=== PATIENT | male | born 1935 | race Caucasian/White ===

== ENCOUNTER 2016-10-13 13:02 | Inpatient (IN) | payer MEDICARE, BC ==
[2016-10-13 13:22] LABS: Glucose,Whole Blood 83 mg/dL (75-99)
[2016-10-13] MEDS ORDERED: SODIUM CHLORIDE 0.9% 500 ML IV STA (13:29)
[2016-10-13] MEDS ORDERED: SODIUM CHLORIDE 0.9% 1,000 ML IV STA (13:29)
--- NOTE | 2016-10-13 13:32 | ED ---
General Adult HPI - General Chief complaint: Neuro Symptoms/Deficit Stated complaint: double vision/nausea-sent by Time Seen by Provider: 10/13/16 13:19 Source: patient Mode of arrival: wheelchair Limitations: no limitations - History of Present Illness Initial comments: This 81-year-old white male presents with a complaint of some double vision as well as some blurry vision which started this morning upon waking at 7 AM. He states that it was more significant and initially and has minimally improved at this time. He denies any other neurologic symptoms such as paresthesias or weakness her if okay with ambulation. He denies any chest pain or shortness of breath. He denies any known previous ophthalmologic problems other than having cataract surgery years ago. He denies any previous CVA or TIAs. He apparently went to physical therapy for his shoulder and they sent him to his primary doctor's office. His primary care physician sent him to the ER for further evaluation. He denies any previous similar incidents. No other complaints or modifying factors. - Related Data Home Medications Medication Instructions Recorded Confirmed Meloxicam [Mobic] 15 mg PO DAILY PRN 10/13/16 10/13/16 Mirtazapine [Remeron] 15 mg PO HS 10/13/16 10/13/16 amLODIPine [Norvasc] 10 mg PO DAILY 10/13/16 10/13/16 cloNIDine HCL [Catapres] 0.1 mg PO DAILY 10/13/16 10/13/16 Allergies Allergy/AdvReac Type Severity Reaction Status Date / Time No Known Allergies Allergy Verified 10/13/16 14:20 Review of Systems ROS Statement: Those systems with pertinent positive or pertinent negative responses have been documented in the HPI. ROS Other: All systems not noted in ROS Statement are negative. Past Medical History Past Medical History: Cancer, Hypertension Additional Past Medical History / Comment(s): kidney ca History of Any Multi-Drug Resistant Organisms: None Reported Past Surgical History: Joint Replacement, Orthopedic Surgery Additional Past Surgical History / Comment(s): rotator cuff knee replacement kidney bladder stimulator sinus surg Past Psychological History: No Psychological Hx Reported Smoking Status: Former smoker Past Alcohol Use History: Rare Past Drug Use History: None Reported General Exam - General Exam Comments Initial Comments: GENERAL: The patient is well nourished and well hydrated. VITAL SIGNS: Heart rate, blood pressure, respiratory rate reviewed as recorded in nurse's notes. EYES: Pupils are round and reactive. Extraocular movements are intact. No conjunctival / lid redness or swelling. Previous cataract surgery evident. ENT: No external evidence of injury, swelling, or ecchymosis. Airway is patent. Throat is clear. NECK: Nontender. No swelling or evidence of injury. No subcutaneous emphysema. Trachea is midline. No thyroid mass. HEART: Regular rate and rhythm. Good peripheral pulses. LUNGS/CHEST: Breath sounds clear and equal bilaterally. No rales, rhonchi, or wheezes. No ecchymosis, subcutaneous emphysema, or tenderness. ABDOMEN: Abdomen soft without tenderness. No palpable masses or organomegaly. No peritoneal signs. No abdominal wall swelling or ecchymosis. EXTREMITIES: No extremity tenderness. Normal muscle tone and function. No thoracolumbar tenderness. NEUROLOGIC: Sensation is grossly intact. Cranial nerve exam reveals face is symmetrical, tongue is midline, speech is clear. Strength is intact bilaterally upper and lower extremities. SKIN: No abrasions or ecchymosis is noted. No induration or masses noted. Scars noted over right shoulder. PSYCHIATRIC: Alert and oriented. Appropriate behavior and judgment. Limitations: no limitations Course Vital Signs 10/13/16 10/13/16 10/13/16 13:05 13:15 13:30 Temperature 97.2 F L Pulse Rate 73 69 68 Respiratory 18 18 20 Rate Blood Pressure 136/70 161/91 147/88 O2 Sat by Pulse 96 90 L 99 Oximetry 10/13/16 10/13/16 13:45 14:00 Temperature Pulse Rate 72 69 Respiratory 18 20 Rate Blood Pressure 138/80 141/78 O2 Sat by Pulse 99 99 Oximetry Medical Decision Making - Medical Decision Making The patient was seen and examined. All diagnostics were reviewed. The EKG shows a normal sinus rhythm at a rate of 66. There is a first-degree AV block noted. There is no acute ST-T wave changes identified. There is some additional spikes noted likely due to his bladder stimulator. The VT interval is 336, QRS duration is 96, and QTC intervals 413. Computed tomography scan of brain does not show any acute abnormalities. The his laboratory is all fairly unremarkable. He is still having the diplopia on recheck. The possibility of a central neurologic event is highly suspicious. Is felt as though he benefit from further workup and specialty consultation. Case is discussed with Dr. Miller and he is agreeable with admission and would like an MRI of the brain with contrast and to have neurology consult. Patient is agreeable as well. - Lab Data Result diagrams: 10/13/16 13:30 10/13/16 13:30 Lab Results 10/13/16 10/13/16 10/13/16 Range/Units 13:19 13:30 13:30 WBC 6.5 (3.8-10.6) k/uL RBC 4.22 L (4.30-5.90) m/uL Hgb 12.9 L (13.0-17.5) gm/dL Hct 40.8 (39.0-53.0) % MCV 96.8 (80.0-100.0) fL MCH 30.5 (25.0-35.0) pg MCHC 31.5 (31.0-37.0) g/dL RDW 14.1 (11.5-15.5) % Plt Count 257 (150-450) k/uL Neutrophils % 66 % Lymphocytes % 20 % Monocytes % 8 % Eosinophils % 3 % Basophils % 1 % Neutrophils # 4.3 (1.3-7.7) k/uL Lymphocytes # 1.3 (1.0-4.8) k/uL Monocytes # 0.5 (0-1.0) k/uL Eosinophils # 0.2 (0-0.7) k/uL Basophils # 0.0 (0-0.2) k/uL PT (9.0-12.0) sec INR (<1.1) APTT (22.0-30.0) sec Sodium (137-145) mmol/L Potassium (3.5-5.1) mmol/L Chloride (98-107) mmol/L Carbon Dioxide (22-30) mmol/L Anion Gap mmol/L BUN (9-20) mg/dL Creatinine (0.66-1.25) mg/dL Est GFR (MDRD) Af Amer (>60 ml/min/1.73 sqM) Est GFR (MDRD) Non-Af (>60 ml/min/1.73 sqM) Glucose (74-99) mg/dL POC Glucose (mg/dL) 83 (75-99) mg/dL POC Glu Game [employer] ID McDaid, Brandie Calcium (8.4-10.2) mg/dL Total Bilirubin (0.2-1.3) mg/dL AST (17-59) U/L ALT (21-72) U/L Alkaline Phosphatase (38-126) U/L Total Creatine Kinase 40 L (55-170) U/L CK-MB (CK-2) 2.0 (0.0-2.4) ng/mL CK-MB (CK-2) Rel Index 5.0 Troponin I 0.021 (0.000-0.034) ng/mL Total Protein (6.3-8.2) g/dL Albumin (3.5-5.0) g/dL 10/13/16 10/13/16 Range/Units 13:30 13:30 WBC (3.8-10.6) k/uL RBC (4.30-5.90) m/uL Hgb (13.0-17.5) gm/dL Hct (39.0-53.0) % MCV (80.0-100.0) fL MCH (25.0-35.0) pg MCHC (31.0-37.0) g/dL RDW (11.5-15.5) % Plt Count (150-450) k/uL Neutrophils % % Lymphocytes % % Monocytes % % Eosinophils % % Basophils % % Neutrophils # (1.3-7.7) k/uL Lymphocytes # (1.0-4.8) k/uL Monocytes # (0-1.0) k/uL Eosinophils # (0-0.7) k/uL Basophils # (0-0.2) k/uL PT 10.2 (9.0-12.0) sec INR 1.0 (<1.1) APTT 24.4 (22.0-30.0) sec Sodium 139 (137-145) mmol/L Potassium 4.3 (3.5-5.1) mmol/L Chloride 103 (98-107) mmol/L Carbon Dioxide 27 (22-30) mmol/L Anion Gap 9 mmol/L BUN 15 (9-20) mg/dL Creatinine 0.80 (0.66-1.25) mg/dL Est GFR (MDRD) Af Amer >60 (>60 ml/min/1.73 sqM) Est GFR (MDRD) Non-Af >60 (>60 ml/min/1.73 sqM) Glucose 90 (74-99) mg/dL POC Glucose (mg/dL) (75-99) mg/dL POC Glu Game [employer] ID Calcium 9.2 (8.4-10.2) mg/dL Total Bilirubin 0.3 (0.2-1.3) mg/dL AST 20 (17-59) U/L ALT 41 (21-72) U/L Alkaline Phosphatase 93 (38-126) U/L Total Creatine Kinase (55-170) U/L CK-MB (CK-2) (0.0-2.4) ng/mL CK-MB (CK-2) Rel Index Troponin I (0.000-0.034) ng/mL Total Protein 6.4 (6.3-8.2) g/dL Albumin 3.7 (3.5-5.0) g/dL Disposition Clinical Impression: Diplopia, Blurry vision Disposition: ADMITTED IP TO THIS [facility] Condition: Fair Time of Disposition: 14:52 Decision Date: 10/13/16 Decision Time: 14:52
[2016-10-13 13:45] LABS: Basophils % (A) 1 %; CH 31.6; CHCM 32.8; Eosinophils # (A) 0.2 k/uL (0-0.7); Eosinophils % (A) 3 %; HCT 40.8 % (39.0-53.0); HGB 12.9 gm/dL (13.0-17.5); Luc # (Auto) 0.14; Luc % (Auto) 2; Lymphocytes # (A) 1.3 k/uL (1.0-4.8); Lymphocytes % (A) 20 %; MCH 30.5 pg (25.0-35.0); MCHC 31.5 g/dL (31.0-37.0); MCV 96.8 fL (80.0-100.0); Mean Platelet Volume 7.3; Monocytes # (A) 0.5 k/uL (0-1.0); Monocytes % (A) 8 %; Neutrophils # (A) 4.3 k/uL (1.3-7.7); Neutrophils % (A) 66 %; RBC 4.22 m/uL (4.30-5.90); RDW 14.1 % (11.5-15.5); WBC 6.5 k/uL (3.8-10.6); WBC (Perox) 6.44
[2016-10-13 13:52] LABS: ALT 41 U/L (21-72); AST 20 U/L (17-59); Alkaline Phosphatase 93 U/L (38-126); Anion Gap 9 mmol/L; Blood Urea Nitrogen 15 mg/dL (9-20); Calcium 9.2 mg/dL (8.4-10.2); Carbon Dioxide 27 mmol/L (22-30); Chloride 103 mmol/L (98-107); Glucose 90 mg/dL (74-99); Non-African American GFR(MDRD) >60 (>60 ml/min/1.73 sqM); Potassium 4.3 mmol/L (3.5-5.1); Sodium 139 mmol/L (137-145); Total Bilirubin 0.3 mg/dL (0.2-1.3); Total Protein 6.4 g/dL (6.3-8.2)
[2016-10-13 13:53] LABS: Partial Thromboplastin Time 24.4 sec (22.0-30.0); Prothrombin Time 10.2 sec (9.0-12.0)
--- NOTE | 2016-10-13 14:00 | CT ---
EXAMINATION TYPE: CT brain wo con DATE OF EXAM: 10/13/2016 COMPARISON: NONE HISTORY: Diplopia. CT DLP: 1091 mGycm Automated exposure control for dose reduction was used. FINDINGS: There is no acute hemorrhage or major vessel territorial infarct. There is mild cortical atrophy. The re is no mass, mass effect, or midline shift. Ventricles are not dilated. The sulci are mildly promin ent which is felt to be due to atrophy. The paranasal sinuses and mastoid air cells are well aerated. The calvarium is unremarkable. There is erosion of the osseous structures of the ethmoid sinus likel y from history of prior sinusitis. There is also opacification of the left frontal sinus. Soft tissue structures appear unremarkable. IMPRESSION: 1. No acute intracranial abnormality identified. 2. Sequelae of prior sinus disease is noted. There is also opacification of the left frontal sinus.
[2016-10-13 14:23] LABS: Troponin I 0.021 ng/mL (0.000-0.034)
[2016-10-13] MEDS ORDERED: MELOXICAM 7.5 MG TAB PO PRN (14:56)
[2016-10-13 15:18] VITALS: RESP 18
[2016-10-13 17:43] VITALS: BMI 20.9
--- NOTE | 2016-10-13 19:07 | P.CNNES ---
History of Present Illness Consult date: 10/13/16 History of Present Illness: The patient 81-year-old right-handed white male who woke up with double vision. He has never had episode like this in the past. He states that when he closes either eye the double vision disappears. He continues to have double vision. He denies any other neurologic complaints such as focal weakness numbness visual loss dizziness vertigo or headache. He saw his primary care physician today who sent him to the emergency room. He had a CT of the brain in the emergency room which did not reveal any acute abnormality. Review of Systems Constitutional: Denies chills, Denies fever Eyes: denies blurred vision, denies pain Ears, nose, mouth and throat: Denies headache, Denies sore throat Cardiovascular: Denies chest pain, Denies shortness of breath Gastrointestinal: Denies abdominal pain, Denies diarrhea, Denies nausea, Denies vomiting Musculoskeletal: Denies myalgias Integumentary: Denies pruritus, Denies rash Neurological: Denies numbness, Denies weakness Past Medical History Past Medical History: Cancer, Hypertension Additional Past Medical History / Comment(s): kidney ca History of Any Multi-Drug Resistant Organisms: None Reported Past Surgical History: Joint Replacement, Orthopedic Surgery Additional Past Surgical History / Comment(s): rotator cuff knee replacement kidney bladder stimulator sinus surg Past Psychological History: No Psychological Hx Reported Smoking Status: Former smoker Medications and Allergies Home Medications Medication Instructions Recorded Confirmed Type Meloxicam [Mobic] 15 mg PO DAILY PRN 10/13/16 10/13/16 History Mirtazapine [Remeron] 15 mg PO HS 10/13/16 10/13/16 History amLODIPine [Norvasc] 10 mg PO DAILY 10/13/16 10/13/16 History cloNIDine HCL [Catapres] 0.1 mg PO DAILY 10/13/16 10/13/16 History Allergies Allergy/AdvReac Type Severity Reaction Status Date / Time No Known Allergies Allergy Verified 10/13/16 14:20 Physical Examination - Vital Signs Vital Signs: Vital Signs Temp Pulse Resp BP Pulse Ox 10/13/16 15:17 97.5 F L 87 18 143/84 10/13/16 15:00 71 20 139/59 99 10/13/16 14:30 74 20 138/59 99 10/13/16 14:00 69 20 141/78 99 10/13/16 13:45 72 18 138/80 99 10/13/16 13:30 68 20 147/88 99 10/13/16 13:15 69 18 161/91 90 L 10/13/16 13:05 97.2 F L 73 18 136/70 96 Intake and Output 10/13/16 10/13/16 10/13/16 06:59 14:59 22:59 Other: Voiding Method Urinal # Voids 1 Weight 62.596 kg 62.596 kg Patient Weight 10/14/16 06:59 Weight 62.596 kg - Constitutional General appearance: cooperative - EENT EENT: PERRL, vision intact, hearing diminished - Respiratory Respiratory: lungs clear - Cardiovascular Cardiovascular: regular rate - Integumentary Integumentary: normal - Neurologic Cranial nerve examination: PERRL, EOMI, VFF, V1/V2/V3 grossly intact, face symmetric, tongue midline Speech examination: intact Sensorimotor examination: intact Detailed motor examination: grossly full strength in all extremities - Psychiatric Psychiatric: mood/affect appropriate Results - Laboratory Findings CBC and BMP: 10/13/16 13:30 10/13/16 13:30 Abnormal Lab Findings: Abnormal Labs 10/13/16 10/13/16 13:30 13:30 RBC 4.22 L Hgb 12.9 L Total Creatine Kinase 40 L Assessment and Plan (1) Diplopia Status: Acute Code(s): H53.2 - DIPLOPIA (2) Stroke Status: Acute Code(s): I63.9 - CEREBRAL INFARCTION, UNSPECIFIED Plan: Patient is an 81-year-old man who presents to the hospital with sudden onset diplopia. His CT of the brain which did not show any acute abnormality. His neuro exam is unremarkable except for double vision worse when looking to the left. He may have some slight weakness in the left sixth nerve. She is being evaluated for possible stroke. He will have a carotid ultrasound and echocardiogram. He will also have an MRI of the brain for further evaluation. Stroke risk factors include hypertension and past history of smoking.
--- NOTE | 2016-10-13 19:13 | US ---
EXAMINATION TYPE: US carotid duplex BILAT DATE OF EXAM: 10/13/2016 COMPARISON: NONE CLINICAL HISTORY: Stenosis. Double vision EXAM MEASUREMENTS: RIGHT: Peak Systolic Velocity (PSV) cm/sec ----- Right CCA: 62.4 ----- Right ICA: 52.0 ----- Right ECA: 95.3 ICA/CCA ratio: 0.8 RIGHT: End Diastole cm/sec ----- Right CCA: 15.9 ----- Right ICA: 13.7 ----- Right ECA: 10.6 LEFT: Peak Systolic Velocity (PSV) cm/sec ----- Left CCA: 61.9 ----- Left ICA: 61.1 ----- Left ECA: 100.1 ICA/CCA ratio: 1.0 LEFT: End Diastole cm/sec ----- Left CCA: 14.0 ----- Left ICA: 16.4 ----- Left ECA: 12.9 VERTEBRALS (direction of flow): Right Vertebral: Antegrade Left Vertebral: Antegrade No elevated velocities, no significant stenosis IMPRESSION: There is antegrade flow in the vertebral arteries. The images and measurements suggest c lose to 0% stenosis in both internal carotid arteries. Criteria for Assigning % of Stenosis / Diameter reduction (Estimation based on the indirect measurements of the internal carotid artery velocities (ICA PSV). 1. Normal (no stenosis)=ICA PSV < 125 cm/s: ratio < 2.0: ICA EDV<40 cm/s. 2. Less than 50% stenosis=ICA PSV < 125 cm/s: ratio < 2.0: ICA EDV<40 cm/s. 3. 50 to 69% stenosis=ICA PSV of 125 to 230 cm/s: ration 2.0 ? 4.0: ICA EDV 40-100 cm/s. 4. Greater than 70% stenosis to near occlusion= ICA PSV > 230 cm/s: ratio > 4.0: ICA EDV > 100 cm/s. 5. Near occlusion= ICA PSV velocities may be low or undetectable: variable ratio and ICA EDV. 6. Total occlusion=unable to detect flow.
[2016-10-13] MEDS: MIRTAZAPINE 15 MG TAB PO SCH (20:39)
[2016-10-13] MEDS ORDERED: FAMOTIDINE 20 MG/2 ML VIAL IV SCH (21:00)
[2016-10-14 06:10] LABS: Cholesterol 171 mg/dL (<200); HDL Cholesterol 58 mg/dL (40-60); Triglycerides 93 mg/dL (<150)
[2016-10-14] MEDS ORDERED: ATORVASTATIN 40 MG TAB PO SCH (09:00)
[2016-10-14] MEDS ORDERED: cloNIDine HCL 0.1 MG TAB PO SCH (09:00)
[2016-10-14] MEDS ORDERED: ENOXAPARIN 40 MG/0.4 ML SYRINGE SQ SCH (09:00)
[2016-10-14] MEDS ORDERED: ASPIRIN 325 MG TAB PO SCH (09:00)
[2016-10-14] MEDS ORDERED: amLODIPine 10 MG TAB PO SCH (09:00)
--- NOTE | 2016-10-14 09:22 | HP ---
DATE OF ADMISSION: 10/13/2016 CHIEF COMPLAINT: Double vision and nausea. HISTORY OF PRESENT ILLNESS: This 81-year-old gentleman who had a past medical history of multiple medical problems, including history of hypertension, history of kidney cancer, history of degenerative joint disease, history of nicotine dependence being followed by Dr. Arnoldo Coronel in the outpatient was complaining of double vision, as well as some nausea since the patient woke up from 7:00. The double vision is looking every direction according to him and the patient also had some unsteadiness walking. The patient went to Dr. Coronel's office and directed to [facility] for further evaluation and treatment . There is no history of fever, rigors or chills. No history of headache, loss of consciousness or seizures. PAST MEDICAL HISTORY: History of hypertension. History of kidney cancer, history of degenerative joint disease and joint replacement. Medications prior to admission include: 1. Remeron 50 mg q.h.s. 2. Mobic 15 mg daily p.r.n. 3. Catapres 0.1 daily. 4. Norvasc 10 mg daily. ALLERGIES: None. FAMILY HISTORY: No history of heart disease or strokes in the family. SOCIAL HISTORY: Remote history of smoking. No history of alcohol intake. REVIEW OF SYSTEMS: HEENT: Diminished vision. Diminished hearing. CARDIOVASCULAR: No angina or palpitations. RESPIRATORY: No cough or hemoptysis. GI: No nausea. : No dysuria. Nervous system: As mentioned earlier. ALLERGY/IMMUNOLOGY: No asthma or hayfever. MUSCULOSKELETAL: As mentioned earlier. HEMATOLOGY/ONCOLOGY: No history of anemia. ENDOCRINE: No history of diabetes mellitus or hypothyroidism. CONSTITUTIONAL: As mentioned earlier. DERMATOLOGY: Negative. RHEUMATOLOGY: Negative. PSYCHIATRY: Negative. PHYSICAL EXAMINATION: The patient is alert and oriented times three. Pulse 88, blood pressure 109/63, respiratory rate 18, temperature 98.1. Pulse ox 94% on room air. HEENT: Conjunctivae normal. Oral mucosa moist. NECK: No jugular venous distention. No carotid bruit. No lymph node enlargement. CARDIOVASCULAR: S1, S2. No S3, no S4. RESPIRATORY: Breath sounds diminished at the bases. Scattered rhonchi and crackles. ABDOMEN: Soft, nontender. No mass palpable. Legs: No edema. No swelling. Nervous system: Higher functions function as mentioned earlier. Cranial nerves no nystagmus. No diplopia currently. Otherwise moves all 4 limbs, minimal weakness on the right upper limb present and also patient also had finger to nose incontinent right more than left. Gait dysfunction also present. LYMPHATICS: No lymph nodes palpable in the neck, axillae or groin. Joints: No active deforming arthropathy. LABS: WBC 6.9, hemoglobin is 12.9. ASSESSMENT: 1. Diplopia and dizziness for evaluation, possibly with acute vertebral basilar stroke. 2. Anemia, normocytic anemia of chronic disease. 3. Hypertension. 4. History of kidney cancer. 5. History of degenerative joint disease. 7. Remote history of nicotine dependence. 8. NO CODE, NO CPR, NO VENT. RECOMMENDATIONS AND DISCUSSION: In this 81-year-old gentleman who presented with the multiple complex medical issues, we will monitor the patient closely, continue the current medications, continue with symptomatic treatment and antiplatelet agents. Otherwise, DVT prophylaxis. Neurology consultation. Neurovascular work-up. Brain CT has been done, which showed sinus disease. I would also recommend MRI and MRA of the brain and continue to monitor. Prognosis guarded. Further recommendations to follow. Discussed with the patient, understands and agrees. Further recommendations to follow. MTDD
--- NOTE | 2016-10-14 15:34 | PN ---
DATE OF SERVICE: 10/14/2016 This 81-year-old gentleman admitted with diplopia as well as brainstem stroke is being closely monitored. MRI could not be done because of the necessity for 1.5 Kelsi machine. The patient has some still some incontinence, difficulty walking and difficulty in speech also. The patient is being closely monitored. Neurology following the patient closely. PAST MEDICAL HISTORY: Reviewed. REVIEW OF SYSTEMS: CARDIOVASCULAR: No angina or palpitations. GASTROINTESTINAL: No nausea or vomiting. : No dysuria. CENTRAL NERVOUS SYSTEM: As mentioned earlier. PHYSICAL EXAMINATION: Patient is alert and oriented times three. Pulse 72, blood pressure 136/77, respiration 18, temperature 97.4. Pulse ox 94% on room air. HEENT: Conjunctivae normal. Oral mucosa moist. CARDIOVASCULAR: S1, S2. RESPIRATORY: Breath sound diminished in the bases. No rhonchi. No crackles. ABDOMEN: Soft, nontender. LEGS: No edema. Nervous system: Minimal nystagmus present. EXTREMITIES : Bilateral right more than left. Minimal weakness on the right side also present. SKIN: No ulcer, rash or bleeding. LYMPHATICS: No lymph nodes palpable in the neck, axillae or groin. LABORATORY DATA: Lipids are normal. Hemoglobin 12. ASSESSMENT: 1. 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 2. Cerebral thrombosis. 3. Anemia, normocytic anemia of chronic disease. 4. Gait dysfunction. 5. Hypertension. 6. History of dysarthria. 7. History of kidney cancer. 8. History of finger-nose incoordination. 9. History of degenerative joint disease. 10. Remote history of nicotine dependence. 11. NO CODE, NO CPR, NO VENT. RECOMMENDATIONS AND DISCUSSION: Recommend to continue current medications, continue with symptomatic treatment. Continue antiplatelet agents and Lipitor and continue DVT prophylaxis. Symptomatic treatment. Further recommendations to follow. Prognosis guarded. MTDD
[2016-10-14] MEDS: MIRTAZAPINE 15 MG TAB PO SCH (20:23)
[2016-10-15] MEDS ORDERED: ATORVASTATIN 40 MG TAB ONE (09:00)
[2016-10-15] MEDS ORDERED: ASPIRIN 325 MG TAB ONE (09:00)
[2016-10-15] MEDS ORDERED: cloNIDine HCL 0.1 MG TAB ONE (09:00)
[2016-10-15] MEDS ORDERED: amLODIPine 10 MG TAB ONE (09:00)
[2016-10-15] MEDS ORDERED: ENOXAPARIN 40 MG/0.4 ML SYRINGE SQ ONE (09:00)
[2016-10-15 12:26] VITALS: BP 128/82; PULSE 75; TEMP 97.1
--- NOTE | 2016-10-15 12:39 | ECHOF ---
Referral Reason:Thrombus MEASUREMENTS -------- HEIGHT: 172.7 cm WEIGHT: 62.6 kg BP: 141/78 IVSd: 1.1 cm (0.6 - 1.1) LVIDd: 5.3 cm (3.9 - 5.3) LVIDs: 4.0 cm LA Diam: 3.3 cm (2.7 - 3.8) RVIDd: 2.7 cm (< 3.3) LAESV Index (A-L): 33.94 ml/m Ao Diam: 2.7 cm (2.0 - 3.7) LA Diam: 3.6 cm (2.7 - 3.8) AV Cusp: 2.0 cm (1.5 - 2.6) EPSS: 0.9 cm MV E Jeramie: 0.55 m/s MV DecT: 240 ms MV A Jeramie: 0.83 m/s MV E/A Ratio: 0.67 RAP: 5.00 mmHg RVSP: 15.27 mmHg MV EF SLOPE: 113.92 mm/s (70 - 150) MV EXCURSION: 15.62 mm (> 18.000) FINDINGS -------- Sinus rhythm. This was a technically adequate study. There is mild concentric left ventricular hypertrophy. Overall left ventricular systolic function is mildly impaired with, an EF between 45 - 50 %. The right ventricle is normal in size. LA is midly dilated 29-33ml/m2. The right atrial size is normal. There is mild aortic valve sclerosis. There is no evidence of aortic regurgitation. Mild mitral annular calcification present. Mild mitral regurgitation is present. Mild tricuspid regurgitation present. There is no evidence of pulmonary hypertension. The right ventricular systolic pressure, as measured by Doppler, is 15.27mmHg. TV thickening. Trace/mild (physiologic) pulmonic regurgitation. The aortic root size is normal. There is no pericardial effusion. CONCLUSIONS -------- 1. There is mild concentric left ventricular hypertrophy. 2. TV thickening. 3. Trace/mild (physiologic) pulmonic regurgitation. 4. The aortic root size is normal. 5. There is no pericardial effusion. 6. Overall left ventricular systolic function is mildly impaired with, an EF between 45 - 50 %. 7. LA is midly dilated 29-33ml/m2. 8. There is mild aortic valve sclerosis. 9. Mild mitral annular calcification present. 10. Mild mitral regurgitation is present. 11. Mild tricuspid regurgitation present. 12. There is no evidence of pulmonary hypertension. 13. The right ventricular systolic pressure, as measured by Doppler, is 15.27mmHg. PAY[employer] BENEFITS SPECIALIST: Josefina Madden RDCS
--- NOTE | 2016-10-15 16:20 | DS ---
DATE OF ADMISSION: 10/13/2016 DATE OF DISCHARGE: FINAL DIAGNOSES: 1. 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 2. cerebral thrombosis. 3. Anemia, normocytic anemia of chronic disease. 4. Gait dysfunction, improved. 5. Hypertension. 6. History of dysarthria. 7. History of kidney cancer. 8. History of degenerative joint disease. 9. Remote history of nicotine depression. 10. NO CODE, NO CPR, NO VENT. DISCHARGE DISPOSITION: The patient will be discharged in a stable condition with guarded prognosis. Discharge cleared by Neurology. HISTORY OF PRESENT ILLNESS: This 81-year-old gentleman with a past medical history of multiple medical problems including diplopia and features of acute vertebrobasilar stroke. The patient was treated symptomatically. The patient was seen by Neurology. The basic neurovascular work-up was unremarkable, but however, MRI scan was recommended and could not be done because of the patient's pain pump apparently. The outside MRI with lower magnetic power has been recommended. Carotid Doppler unremarkable. On exam, vitals are stable. CARDIOVASCULAR SYSTEM: S1, S2. ABDOMEN: Soft. NERVOUS SYSTEM: No focal deficits. LABS: Noted. DISCHARGE ADVICE: 1. Diet is cardiac. 2. Activity limited until follow up. 3. Follow up with Dr. Coronel in 2 to 3 days. 4. Follow with Dr. Sabrina Russo, neurology, in one week and continued outpatient MRI. MEDICATIONS: 1. Norvasc 10 mg daily. 2. Ecotrin 81 mg daily. 3. Lipitor 40 mg p.o. daily. 4. Catapres 0.1 p.o. daily. 5. Pepcid 20 mg daily. 6. Mobic 15 mg daily p.r.n. 7. Amaryl 50 mg q.h.s. MTDD
== END 2016-10-15 16:20 | disposition home or self-care (01) | DRG 66 ==
LOC: EC 13:02 → 6SEL 14:53
PROVIDERS: ADMIT Hospitalist; ATTEND Hospitalist
DX: I63.30 Cerebral infarction due to thrombosis of unspecified cerebral artery (principal); D63.8 Anemia in other chronic diseases classified elsewhere; I10 Essential (primary) hypertension; H53.2 Diplopia; R29.700 NIHSS score 0; R47.1 Dysarthria and anarthria; R26.2 Difficulty in walking, not elsewhere classified; R27.9 Unspecified lack of coordination; R32 Unspecified urinary incontinence; M19.91 Primary osteoarthritis, unspecified site; Z66 Do not resuscitate; Z87.891 Personal history of nicotine dependence; Z85.528 Personal history of other malignant neoplasm of kidney; Z96.659 Presence of unspecified artificial knee joint; Z79.1 Long term (current) use of non-steroidal anti-inflammatories (NSAID); Z79.899 Other long term (current) drug therapy; Z86.73 Personal history of transient ischemic attack (TIA), and cerebral infarction without residual deficits; Z86.59 Personal history of other mental and behavioral disorders
CPT/HCPCS: 36415; 70450; 80053; 80061; 82550; 82553; 84484; 85025; 85610; 85730; 93005; 93306; 93880; 96360; 99285

== ENCOUNTER → 2017-11-22 | Outpatient (CLI) | payer MEDICARE, BC ==
--- NOTE | 2017-11-22 20:25 | CT ---
EXAMINATION TYPE: CT abdomen wo con DATE OF EXAM: 11/22/2017 HISTORY: UPPER ABDOMINAL PAIN CT DLP: 286 mGycm. Automated Exposure Control for Dose Reduction was Utilized. TECHNIQUE: CT scan of the abdomen is performed without oral or IV contrast. COMPARISON: NONE FINDINGS: Within the limitations of a non-contrast study, the following observations are made. LUNG BASES: No significant abnormality is appreciated. LIVER/GB: Posterior dependent linear atelectasis is present bilaterally. PANCREAS: No significant abnormality is seen. SPLEEN: No significant abnormality is seen. ADRENALS: No significant abnormality is seen. KIDNEYS: No renal calculi or hydronephrosis is present bilaterally. Some cortical thinning in both ki dneys is present. There is 1.4 cm simple appearing cyst exophytically mid pole level left kidney post erior aspect axial image 33. BOWEL: Evaluation of bowel slightly suboptimal secondary to lack of enteric contrast. Debris filled s tomach suggests recent meal ingestion. There is no suspicious small or large bowel dilatation. Amount of fecal material limits is mildly to moderately prominent in the visualized colon. LYMPH NODES: No greater than 1cm abdominal lymph nodes are appreciated. OSSEOUS STRUCTURES: There is hemangioma at the L4 vertebra. There is slight scoliotic curvature with loss of normal lumbar lordosis. There is multilevel spurring and disc space narrowing that is fairly moderate overall with advanced disc space narrowing noted L4-L5 level. Facet arthropathy lower lumbar levels is seen. OTHER: There is [id number] calcified plaque in the ectatic abdominal aorta. IMPRESSION: Overall nonobstructive bowel gas pattern. Perhaps mild to moderate colonic fecal stasis o therwise no significant findings on noncontrast study are seen to account for patient's symptoms.
== END | disposition home or self-care (01) ==
LOC: RADCTMAIN 19:01
PROVIDERS: ATTEND Family Medicine
DX: R10.9 Unspecified abdominal pain (principal)
CPT/HCPCS: 74150

== ENCOUNTER → 2018-01-04 | Outpatient (CLI) | payer MEDICARE, BC ==
--- NOTE | 2018-01-04 14:41 | XR ---
EXAMINATION TYPE: XR ribs LT DATE OF EXAM: 01/04/2018 COMPARISON: NONE HISTORY: Pain TECHNIQUE: 4 views submitted FINDINGS: There is a chronic deformity anterior fourth rib suggestive of remote trauma arthropathy of the AC joint noted. Hypertrophic and degenerative change of the spine noted. IMPRESSION: No acute displaced rib fracture. Remote trauma involving the anterior left fourth rib not ed.
== END ==
LOC: RADXRMAIN 14:13
PROVIDERS: ATTEND Physical Medicine & Rehabilitation
DX: R07.81 Pleurodynia (principal)

== ENCOUNTER → 2018-01-12 | Outpatient (CLI) | payer MEDICARE, BC ==
--- NOTE | 2018-01-13 10:24 | CT ---
EXAMINATION TYPE: CT chest wo con DATE OF EXAM: 01/12/2018 COMPARISON: 12/23/2008 HISTORY: Left lower rib pain CT DLP: 243.1 mGycm. Automated Exposure Control for Dose Reduction was Utilized. TECHNIQUE: CT scan of the thorax is performed without IV contrast. FINDINGS: LUNGS: There is a stable 5 mm nodule left upper lobe. Subpleural nodularity 2 mm adjacent nodule righ t upper lobe is also stable. Vague linear density anterior margin right upper lobe likely related ate lectasis. There is an 8mm nodule on image 37 within the right upper lobe which is also stable relativ e to the prior exam. Interlobular septal thickening at the lung bases suggest a degree of chronic int erstitial lung disease and there is subsegmental atelectasis at both lung bases. MEDIASTINUM: Lack of IV contrast is noted to limit evaluation for mediastinal and especially hilar ad enopathy. There are no definitive greater than 1 cm hilar or mediastinal lymph nodes. Trace of perica rdial fluid is seen. Atherosclerotic change of the aorta noted. Heart is prominent in size and there is coronary artery calcification. Ascending aorta measures 4.3 cm compatible with mild aneurysmal dil ation. OTHER: Hypertrophic and degenerative changes of the spine are noted. Rib cage appears intact. Simple renal cyst noted left kidney peripherally. Extensive retained fecal debris: There is a small hiatal h ernia. IMPRESSION: 1. No acute process. 2. Multiple bilateral pulmonary nodules are stable. 3. Correlate for chronic interstitial pulmonary fibrosis 4. 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 Extensive retained fecal debris throughout the colon correlate for constipation
== END | disposition home or self-care (01) ==
LOC: RADCTMAIN 10:54
PROVIDERS: ATTEND Physical Medicine & Rehabilitation
DX: I25.10 Atherosclerotic heart disease of native coronary artery without angina pectoris (principal); I71.2 Thoracic aortic aneurysm, without rupture; I51.7 Cardiomegaly; R91.8 Other nonspecific abnormal finding of lung field
CPT/HCPCS: 71250

== ENCOUNTER 2018-01-18 10:45 | Day surgery (SDC) | payer MEDICARE, BC ==
[2018-01-16 14:42] VITALS: BMI 21.1
[~2018-01-18 10:45] MED LIST: LACTATED RINGERS 1,000 ML IV SCH; LIDOCAINE 1% 20 ML VIAL (10MG/ML) FOR IV START INTRADERMA PRN
[2018-01-18 11:59] VITALS: TEMP 98.5
[2018-01-18] MEDS ORDERED: LIDOCAINE 1% INJ 10MG/ML (20 ML MDV) ONE (13:16)
[2018-01-18] MEDS ORDERED: PROPOFOL 10 MG/ML 20 ML VIAL IV ONE (13:16)
--- NOTE | 2018-01-18 13:43 | P.PCN ---
Date of Procedure: 01/18/18 Procedure(s) Performed: BRIEF HISTORY: Patient is a 82-year-old pleasant male, scheduled for an elective colonoscopy as a part of screening for colorectal neoplasia. PROCEDURE PERFORMED: Colonoscopy with snare polypectomy. PREOPERATIVE DIAGNOSIS: Screening for colon cancer. IV sedation per Anesthesia. PROCEDURE: After informed consent was obtained, the patient, was brought into the endoscopy unit. IV sedation was administered by Anesthesia under continuous monitoring. Digital rectal examination was normal. Initially the Olympus CF- 160 flexible video colonoscope was then inserted in the rectum, gradually advanced into the cecum without any difficulty. Careful examination was performed as the scope was gradually being withdrawn. Ileocecal valve and the appendiceal orifice were visualized and appeared normal. Prep was poor and several areas of the colon. Thorough irrigation was performed using irrigation system. Mucosa of the cecum, ascending colon, transverse colon, descending colon, sigmoid colon, and rectum appeared normal. In the distal rectum there was a 5 mm flat polyp removed by snare polypectomy. Retroflexion was performed in the rectum and no lesions were seen. The patient tolerated the procedure well. IMPRESSION: 5 mm flat rectal polyp status post polypectomy Rest of the colon appeared normal RECOMMENDATIONS: Findings of this examination were discussed with the patient as well as his family. He was advised to follow with the biopsy results..
[2018-01-18 14:19] VITALS: BP 93/71; PULSE 78; RESP 16
== END 2018-01-18 15:19 | disposition home or self-care (01) ==
LOC: ORWHC2ENDO 10:45
PROVIDERS: ATTEND Internal Medicine Gastroenterology
DX: Z12.11 Encounter for screening for malignant neoplasm of colon (principal); K62.1 Rectal polyp; I10 Essential (primary) hypertension; K21.9 Gastro-esophageal reflux disease without esophagitis; Z96.653 Presence of artificial knee joint, bilateral; Z79.82 Long term (current) use of aspirin; Z79.899 Other long term (current) drug therapy; Z88.5 Allergy status to narcotic agent
CPT/HCPCS: 88305; 45385; J2001; J2704

== ENCOUNTER 2018-11-14 18:17 | Observation (INO) | payer MEDICARE, BC ==
[2018-11-14] MEDS ORDERED: SODIUM CHLORIDE 0.9% 1,000 ML IV STA ×2 (18:25)
--- NOTE | 2018-11-14 18:25 | ED ---
Neuro HPI - General Chief Complaint: Neuro Symptoms/Deficit Stated Complaint: rt sided numbness Time Seen by Provider: 11/14/18 18:24 Source: patient, family, RN notes reviewed, old records reviewed Mode of arrival: ambulatory Limitations: physical limitation - History of Present Illness Is the patient presenting with stroke symptoms?: No -: hour(s) Initial Comments: This is an 83-year-old male the ER for evaluation. Patient presents today for evaluation regards to weakness, found not acting appropriately. Patient has history of stroke and CVA. Patient was found in his backyard marching in place, but family found any was not acting appropriately unresponsive to questioning. Upon arrival to ER symptoms have all resolved. Location: altered, other History of same: Yes Place: home Improves With: none Worsens With: none On Anticoagulants: Yes Associated Symptoms: confusion, weakness Treatments Prior to Arrival: none - Related Data Home Medications: Home Medications Medication Instructions Recorded Confirmed amLODIPine [Norvasc] 10 mg PO DAILY 10/13/16 11/14/18 Famotidine [Pepcid] 40 mg PO DAILY 01/16/18 11/14/18 Gabapentin [Neurontin] 100 mg PO TID 11/14/18 11/14/18 Previous Rx's Medication Instructions Recorded Atorvastatin [Lipitor] 40 mg PO DAILY #30 tab 10/15/16 Allergies/Adverse Reactions: Allergies Allergy/AdvReac Type Severity Reaction Status Date / Time codeine AdvReac vomiting Verified 11/14/18 19:18 and passed out Review of Systems ROS Statement: Those systems with pertinent positive or pertinent negative responses have been documented in the HPI. ROS Other: All systems not noted in ROS Statement are negative. General Exam - General Exam Comments Initial Comments: NIH of 0 Limitations: physical limitation General appearance: alert, in no apparent distress Head exam: Present: atraumatic, normocephalic, normal inspection Eye exam: Present: normal appearance, PERRL, EOMI. Absent: scleral icterus, conjunctival injection, periorbital swelling ENT exam: Present: normal exam, mucous membranes moist Neck exam: Present: normal inspection. Absent: tenderness, meningismus, lymphadenopathy Respiratory exam: Present: normal lung sounds bilaterally. Absent: respiratory distress, wheezes, rales, rhonchi, stridor Cardiovascular Exam: Present: regular rate, normal rhythm, normal heart sounds. Absent: systolic murmur, diastolic murmur, rubs, gallop, clicks GI/Abdominal exam: Present: soft, normal bowel sounds. Absent: distended, tenderness, guarding, rebound, rigid Extremities exam: Present: normal inspection, full ROM, normal capillary refill. Absent: tenderness, pedal edema, joint swelling, calf tenderness Back exam: Present: normal inspection Neurological exam: Present: alert, oriented X3, CN II-XII intact Psychiatric exam: Present: normal affect, normal mood Skin exam: Present: warm, dry, intact, normal color. Absent: rash Stroke MDM - Lab Data Result diagrams: 11/15/18 06:33 11/15/18 06:33 Lab Results 11/14/18 11/14/18 11/14/18 Range/Units 18:45 18:45 18:45 WBC 7.3 (3.8-10.6) k/uL RBC 3.96 L (4.30-5.90) m/uL Hgb 12.7 L (13.0-17.5) gm/dL Hct 38.8 L (39.0-53.0) % MCV 98.0 (80.0-100.0) fL MCH 32.2 (25.0-35.0) pg MCHC 32.9 (31.0-37.0) g/dL RDW 14.2 (11.5-15.5) % Plt Count 240 (150-450) k/uL Neutrophils % 65 % Lymphocytes % 18 % Monocytes % 9 % Eosinophils % 5 % Basophils % 1 % Neutrophils # 4.8 (1.3-7.7) k/uL Lymphocytes # 1.3 (1.0-4.8) k/uL Monocytes # 0.7 (0-1.0) k/uL Eosinophils # 0.3 (0-0.7) k/uL Basophils # 0.1 (0-0.2) k/uL PT (9.0-12.0) sec INR (<1.2) APTT (22.0-30.0) sec Sodium 143 (137-145) mmol/L Potassium 4.4 (3.5-5.1) mmol/L Chloride 108 H (98-107) mmol/L Carbon Dioxide 23 (22-30) mmol/L Anion Gap 12 mmol/L BUN 35 H (9-20) mg/dL Creatinine 1.18 (0.66-1.25) mg/dL Est GFR (CKD-EPI)AfAm 65 (>60 ml/min/1.73 sqM) Est GFR (CKD-EPI)NonAf 56 (>60 ml/min/1.73 sqM) Glucose 91 (74-99) mg/dL Calcium 9.7 (8.4-10.2) mg/dL Total Bilirubin 0.5 (0.2-1.3) mg/dL AST 20 (17-59) U/L ALT 16 L (21-72) U/L Alkaline Phosphatase 87 (38-126) U/L Creatine Kinase 67 (55-170) U/L CK-MB (CK-2) 2.1 (0.0-2.4) ng/mL Troponin I <0.012 (0.000-0.034) ng/mL Total Protein 7.0 (6.3-8.2) g/dL Albumin 4.4 (3.5-5.0) g/dL Urine Color Urine Appearance (Clear) Urine pH (5.0-8.0) Ur Specific [place] (1.001-1.035) Urine Protein (Negative) Urine Glucose (UA) (Negative) Urine Ketones (Negative) Urine Blood (Negative) Urine Nitrite (Negative) Urine Bilirubin (Negative) Urine Urobilinogen (<2.0) mg/dL Ur Leukocyte Esterase (Negative) 11/14/18 11/14/18 Range/Units 18:45 20:15 WBC (3.8-10.6) k/uL RBC (4.30-5.90) m/uL Hgb (13.0-17.5) gm/dL Hct (39.0-53.0) % MCV (80.0-100.0) fL MCH (25.0-35.0) pg MCHC (31.0-37.0) g/dL RDW (11.5-15.5) % Plt Count (150-450) k/uL Neutrophils % % Lymphocytes % % Monocytes % % Eosinophils % % Basophils % % Neutrophils # (1.3-7.7) k/uL Lymphocytes # (1.0-4.8) k/uL Monocytes # (0-1.0) k/uL Eosinophils # (0-0.7) k/uL Basophils # (0-0.2) k/uL PT 10.1 (9.0-12.0) sec INR 0.9 (<1.2) APTT 23.9 (22.0-30.0) sec Sodium (137-145) mmol/L Potassium (3.5-5.1) mmol/L Chloride (98-107) mmol/L Carbon Dioxide (22-30) mmol/L Anion Gap mmol/L BUN (9-20) mg/dL Creatinine (0.66-1.25) mg/dL Est GFR (CKD-EPI)AfAm (>60 ml/min/1.73 sqM) Est GFR (CKD-EPI)NonAf (>60 ml/min/1.73 sqM) Glucose (74-99) mg/dL Calcium (8.4-10.2) mg/dL Total Bilirubin (0.2-1.3) mg/dL AST (17-59) U/L ALT (21-72) U/L Alkaline Phosphatase (38-126) U/L Creatine Kinase (55-170) U/L CK-MB (CK-2) (0.0-2.4) ng/mL Troponin I (0.000-0.034) ng/mL Total Protein (6.3-8.2) g/dL Albumin (3.5-5.0) g/dL Urine Color Yellow Urine Appearance Clear (Clear) Urine pH 6.5 (5.0-8.0) Ur Specific [place] 1.030 (1.001-1.035) Urine Protein Negative (Negative) Urine Glucose (UA) Negative (Negative) Urine Ketones 1+ H (Negative) Urine Blood Negative (Negative) Urine Nitrite Negative (Negative) Urine Bilirubin Negative (Negative) Urine Urobilinogen <2.0 (<2.0) mg/dL Ur Leukocyte Esterase Negative (Negative) - NIH Stroke Scale 1a. Level of Consciousness: (0) alert 1b. LOC Questions: (0) answers correctly 1c. LOC Commands: (0) performs tasks correctly 2. Best Gaze: (0) normal 3. Visual: (0) no visual loss 4. Facial Palsy: (0) normal symmetrical movement 5a. Motor Arm Left: (0) no drift 5b. Motor Arm Right: (0) no drift 6a. Motor Leg Left: (0) no drift 6b. Motor Leg Right: (0) no drift 7. Limb Ataxia: (0) absent 8. Sensory: (0) normal 9. Best Language: (0) no aphasia 10. Dysarthria: (0) normal 11. Extinction/Inattention: (0) no abnormality - Thrombolytic Inclusion/Exclusion Thrombolytic Contraindications: Rapidly Improving s/s - Radiology Data Radiology results: report reviewed (CT brain CTA had not negative for acute disease), image reviewed - EKG Data -: EKG Interpreted by Me (EKG shows sinus rhythm rate of 72, MN 320, QRS 90, QTc 444) Past Medical History Past Medical History: Cancer, CVA/TIA, GERD/Reflux, Hyperlipidemia, Hypertension Additional Past Medical History / Comment(s): kidney ca, brain hematoma History of Any Multi-Drug Resistant Organisms: None Reported Past Surgical History: Joint Replacement, Orthopedic Surgery Additional Past Surgical History / Comment(s): LT rotator cuff, BILAT knee replacement, RT kidney SX , bladder stimulator, MULTIPLE sinus SX , RT REVERSE SHOULDER, COLONOSCOPY, BILAT CATARACT SX, TURP, PENILE IMPLANT, RECTOCELE, HEMORRHOID SX, jerome holes in skull for hematoma Past Anesthesia/Blood Transfusion Reactions: No Reported Reaction Past Psychological History: No Psychological Hx Reported Smoking Status: Former smoker Past Alcohol Use History: Daily Past Drug Use History: None Reported - Past Family History Mother Family Medical History: CVA/TIA Father Family Medical History: Cancer Sister(s) Family Medical History: Cancer Son(s) Family Medical History: Cancer Daughter(s) Family Medical History: Cancer Additional Family Medical History / Comment(s): 2 DAUGHTERS WITH CANCER Course Vital Signs 11/14/18 11/14/18 11/14/18 18:18 20:07 22:06 Temperature 97.5 F L 98.7 F Pulse Rate 83 80 Pulse Rate [ 70 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 ] Respiratory 18 18 16 Rate Blood Pressure 132/85 128/75 Blood Pressure 135/80 [Right Arm] O2 Sat by Pulse 96 95 Oximetry 11/14/18 22:13 Temperature 98.2 F Pulse Rate 75 Pulse Rate [ 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 ] Respiratory 18 Rate Blood Pressure 141/79 Blood Pressure [Right Arm] O2 Sat by Pulse 95 Oximetry - Reevaluation(s) Reevaluation #1: 11/16/18 02:09 Medical record is reviewed Reevaluation #2: 11/16/18 02:09 Patient symptoms remain resolved Disposition Clinical Impression: Cerebrovascular accident, Transient cerebral ischemia Disposition: ADMITTED IP TO THIS [facility] Condition: Stable Is patient prescribed a controlled substance at d/c from ED?: No
[2018-11-14 18:54] LABS: Basophils # (A) 0.1 k/uL (0-0.2); Basophils % (A) 1 %; Eosinophils # (A) 0.3 k/uL (0-0.7); Eosinophils % (A) 5 %; HCT 38.8 % (39.0-53.0); HGB 12.7 gm/dL (13.0-17.5); Lymphocytes # (A) 1.3 k/uL (1.0-4.8); Lymphocytes % (A) 18 %; MCH 32.2 pg (25.0-35.0); MCHC 32.9 g/dL (31.0-37.0); Mean Platelet Volume 8.2; Monocytes # (A) 0.7 k/uL (0-1.0); Monocytes % (A) 9 %; Neutrophils # (A) 4.8 k/uL (1.3-7.7); Neutrophils % (A) 65 %; Platelet Count 240 k/uL (150-450); RBC 3.96 m/uL (4.30-5.90); RDW 14.2 % (11.5-15.5); WBC 7.3 k/uL (3.8-10.6)
[2018-11-14 19:01] LABS: INR 0.9 (<1.2); Partial Thromboplastin Time 23.9 sec (22.0-30.0); Prothrombin Time 10.1 sec (9.0-12.0)
[2018-11-14 19:02] LABS: Albumin 4.4 g/dL (3.5-5.0); Calcium 9.7 mg/dL (8.4-10.2); Potassium 4.4 mmol/L (3.5-5.1); Total Bilirubin 0.5 mg/dL (0.2-1.3)
[2018-11-14 19:27] LABS: Creatine Kinase MB 2.1 ng/mL (0.0-2.4); Troponin I <0.012 ng/mL (0.000-0.034)
--- NOTE | 2018-11-14 19:44 | XR ---
EXAMINATION TYPE: XR chest 2V DATE OF EXAM: 11/14/2018 COMPARISON: NONE HISTORY: Altered mental status TECHNIQUE: Frontal and lateral views of the chest are obtained. FINDINGS: There is no heart failure nor confluent pneumonic infiltrate. Costophrenic angles are daja r. There is right shoulder prosthesis. There are chest leads. IMPRESSION: No active cardiopulmonary disease.
--- NOTE | 2018-11-14 19:55 | CT ---
EXAMINATION TYPE: CT brain wo con for TPA DATE OF EXAM: 11/14/2018 COMPARISON: 10/13/2016 HISTORY: Weakness and confusion CT DLP: 1089 mGycm Automated exposure control for dose reduction was used. FINDINGS: There is cerebral cortical atrophy. There is bilateral parietal craniotomy defect. There is no mass e ffect nor midline shift. There is hypodensity in the periventricular white matter. Skull base is inta ct. There is some mucosal thickening in the paranasal sinuses. There is previous maxillary sinus surg huong. IMPRESSION: PREVIOUS SURGERY. CEREBRAL ATROPHY AND CHRONIC SMALL VESSEL ISCHEMIA. BRAIN UNCHANGED COMPARED TO OLD EXAM.
--- NOTE | 2018-11-14 19:59 | CT ---
EXAMINATION TYPE: CT angio head neck DATE OF EXAM: 11/14/2018 HISTORY: Weakness and confusion COMPARISON: CT DLP: 357.6 mGycm. Automated Exposure Control for Dose Reduction was Utilized. TECHNIQUE: CTA scan of the neck is performed with IV Contrast, patient injected with 65 mL of Isovue 370, axial images are obtained, coronal and sagittal reformatted images are reviewed. Three-D recons tructed images are created on an independent workstation and reviewed. FINDINGS: There is normal branching pattern of the great vessels on the aortic arch. There is some plaque forma tion at the left subclavian artery proximally. There is arterial flow in the common internal and exte rnal carotid arteries bilaterally. There is arterial flow in both vertebral arteries. There is no candy dence of carotid or vertebral artery aneurysm or dissection. There is wide patency of the carotid art huong bifurcations. There is no evidence of hemodynamic stenosis of the carotid arteries. There is arterial flow in the vertebrobasilar artery system. There is arterial flow in the anterior m iddle and posterior cerebral arteries. There is no evidence of intracranial aneurysm or neovascularit y. There is no mass effect. There is normal contrast opacification of the venous sinuses. There is bi lateral posterior parietal craniotomy defect. I see no evidence of intracranial arterial stenosis. Ba silar artery appears normal. IMPRESSION: Negative CT angiogram of the neck. Negative CT angiogram of the brain.
[2018-11-14 20:23] LABS: Appearance,Urine Clear (Clear); Bilirubin,Urine Negative (Negative); Blood,Urine Negative (Negative); Color,Urine Yellow; Glucose,Urine (UA) Negative (Negative); Ketones,Urine 1+ (Negative); Leukocyte Esterase,Urine Negative (Negative); Nitrite,Urine Negative (Negative); PH, Urine 6.5 (5.0-8.0); Protein,Urine Negative (Negative); Urobilinogen,Urine <2.0 mg/dL (<2.0)
[2018-11-14] MEDS ORDERED: ASPIRIN 325 MG TAB PO STA (20:26)
--- NOTE | 2018-11-14 23:20 | P.HPIM ---
History of Present Illness H&P Date: 11/14/18 Chief Complaint: confusion This 83-year-old male with history of Intracranial bleeds, TIA, hyperlipidemia and hypertension Patient presented to the hospital by his daughter who found him today on her regular daily visits confused and the weights. Patient lives alone in a [address] he works in the [employer] every day. She was delivering grocery when she couldn't find him around the house she went and looked for for him and found him marching in his place holding a wheelbarrel not sure of what scarring around him. It is not clear what was the last time he was seen normal. But seems like he had lunch. Normally he would have some beer and chips for lunch. Daughter knows that he is not drinking enough water and he could be slightly dehydrated. However she found him marching in his place holding the wheelbarrow we tried to get his attention he wasn't really paying attention and then she held her his arms to release the wheelbarrow that's when he lost his balance and almost fell but she caught him. Then he recognized her immediately and was talking to her denied any complaints except for right sided pain over his right arm and right side of the belly and right leg no other complaints she did not notice any slurred speech or any facial droop he was making good eye contact then she called for her who got him in the car and brought to the hospital. She reports that back in January 2018 he was in [place] he had multiple falls resulted in intracranial bleeds requiring 2 bur holes on both sides. 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 In the ED initial workup with CT of the brain and CT angiogram both came back unremarkable for any acute process. He currently denies any complaints and it seems like he is back to his normal baseline Labs were suggestive of slight dehydration possibly with elevated BUN otherwise overall unremarkable, chronic anemia around his baseline Patient daughter also adds that a 3 years ago he was brought into the ER for double vision and blurry vision that happened upon waking up in the morning by the time he got to the ER symptoms improved he didn't have any other focal neuro deficits, he was diagnosed with TIA at that time Otherwise patient denies any headache double vision denies any changes in hearing denies any focal neuro deficits at this time denies any chest pain trouble breathing coughing abdominal pain nausea or vomiting Review of Systems Pertinent positives as noted in HPI. All other systems were reviewed and are negative Past Medical History Past Medical History: Cancer, CVA/TIA, GERD/Reflux, Hyperlipidemia, Hypertension Additional Past Medical History / Comment(s): kidney ca, brain hematoma History of Any Multi-Drug Resistant Organisms: None Reported Past Surgical History: Joint Replacement, Orthopedic Surgery Additional Past Surgical History / Comment(s): LT rotator cuff, BILAT knee replacement, RT kidney SX , bladder stimulator, MULTIPLE sinus SX , RT REVERSE SHOULDER, COLONOSCOPY, BILAT CATARACT SX, TURP, PENILE IMPLANT, RECTOCELE, HEMORRHOID SX, jerome holes in skull for hematoma Past Anesthesia/Blood Transfusion Reactions: No Reported Reaction Past Psychological History: No Psychological Hx Reported Smoking Status: Former smoker Past Alcohol Use History: Daily Past Drug Use History: None Reported - Past Family History Mother Family Medical History: CVA/TIA Father Family Medical History: Cancer Sister(s) Family Medical History: Cancer Son(s) Family Medical History: Cancer Daughter(s) Family Medical History: Cancer Additional Family Medical History / Comment(s): 2 DAUGHTERS WITH CANCER Medications and Allergies Home Medications Medication Instructions Recorded Confirmed Type amLODIPine [Norvasc] 10 mg PO DAILY 10/13/16 11/14/18 History Atorvastatin [Lipitor] 40 mg PO DAILY #30 tab 10/15/16 11/14/18 Rx Famotidine [Pepcid] 40 mg PO DAILY 01/16/18 11/14/18 History Gabapentin [Neurontin] 100 mg PO TID 11/14/18 11/14/18 History Meloxicam [Mobic] 15 mg PO DAILY 11/14/18 11/14/18 History Allergies Allergy/AdvReac Type Severity Reaction Status Date / Time codeine AdvReac vomiting Verified 11/14/18 19:18 and passed out Physical Exam Vitals: Vital Signs Temp Pulse Resp BP Pulse Ox 11/14/18 22:13 98.2 F 75 18 141/79 95 11/14/18 20:07 80 18 128/75 96 11/14/18 18:18 97.5 F L 83 18 132/85 Intake and Output 11/14/18 11/14/18 11/15/18 14:59 22:59 06:59 Other: Weight 59.874 kg Constitutional: No acute distress, conversant, pleasant Eyes: Anicteric sclerae, moist conjunctiva, no lid-lag Pupils equal round reactive to light ENMT: NC/AT Oropharynx clear, no erythema, or exudates Neck: Supple, FROM, no masses, or JVD No carotid bruits No thyromegaly Lungs: Clear to auscultation Clear to percussion Normal respiratory effort, no accessory muscle use Cardiovascular: Heart regular in rate and rhythm, No murmurs, gallops, or rubs No peripheral edema Abdominal: Soft Nontender, no guarding, rebound or rigidity Abdomen moving with respiration Normoactive bowel sounds No hepatomegaly, No splenomegaly No palpable mass No abdominal wall hernia noted Skin: Normal temperature, tone, texture, turgor No induration No subcutaneous nodules No rash, lesions No ulcers Extremities: No digital cyanosis No clubbing Pedal pulses intact and symmetrical Radial pulses intact and symmetrical No calf tenderness Psychiatric: Alert and oriented to person, place and time Appropriate affect fair judgment Neuro Muscles Strength 5/5 in all 4 extremities Sensation to light touch grossly present throughout Cranial nerves II-XII grossly intact No focal sensory deficits finger nose and heel lshin exam both intact Lymphatics: no palpable cervical or supraclavicular , or inguinal lymph nodes Results CBC & Chem 7: 11/14/18 18:45 11/14/18 18:45 Labs: Abnormal Lab Results - Last 24 Hours (Table) 11/14/18 11/14/18 11/14/18 Range/Units 18:45 18:45 20:15 RBC 3.96 L (4.30-5.90) m/uL Hgb 12.7 L (13.0-17.5) gm/dL Hct 38.8 L (39.0-53.0) % Chloride 108 H (98-107) mmol/L BUN 35 H (9-20) mg/dL ALT 16 L (21-72) U/L Urine Ketones 1+ H (Negative) Assessment and Plan Assessment: 83-year-old male with history of hypertension hyperlipidemia and TIA admitted under observation with anticipated length of stay less than 48 hours due to symptoms suggestive of TIA for neuro evaluation and monitoring patient also have some component of dehydration Plan: TIA Neurochecks Neurology evaluation Echocardiogram TSH and lipid profile Aspirin and statin Fall precautions PT/OT evaluation Permits of hypertension for first 24 hours dehydration IVF hydration monitor urine outpt Chronic conditions Hypertension controlled Hyperlipidemia Resume home meds chronic anemia DVT prophylaxis mechanical due to recent attack TIA Surrogate decision-maker: *Patient daughter CODE STATUS: No code Discussed with: Patient, ER, RN Anticipated discharge: [address]: Home* A total of 60 minutes was spent on the care of this complex patient more than 50% of the time was spent in counseling and care coordination.
[2018-11-15] MEDS: SODIUM CHLORIDE 0.9% 1,000 ML IV SCH ×4 (05:47→15:18)
[2018-11-15 07:38] LABS: Basophils % (A) 1 %; Eosinophils # (A) 0.7 k/uL (0-0.7); Eosinophils % (A) 12 %; HCT 36.2 % (39.0-53.0); HGB 11.7 gm/dL (13.0-17.5); Lymphocytes # (A) 1.3 k/uL (1.0-4.8); Lymphocytes % (A) 23 %; MCH 31.4 pg (25.0-35.0); MCHC 32.3 g/dL (31.0-37.0); MCV 97.3 fL (80.0-100.0); Mean Platelet Volume 7.8; Monocytes # (A) 0.6 k/uL (0-1.0); Monocytes % (A) 11 %; Neutrophils # (A) 2.7 k/uL (1.3-7.7); Neutrophils % (A) 50 %; Platelet Count 221 k/uL (150-450); RBC 3.72 m/uL (4.30-5.90); RDW 13.4 % (11.5-15.5); WBC 5.5 k/uL (3.8-10.6)
[2018-11-15 07:53] LABS: ALT 18 U/L (21-72); AST 17 U/L (17-59); African American GFR (CKD) >90 (>60 ml/min/1.73 sqM); Albumin 3.1 g/dL (3.5-5.0); Alkaline Phosphatase 62 U/L (38-126); Anion Gap 6 mmol/L; Blood Urea Nitrogen 25 mg/dL (9-20); Calcium 8.4 mg/dL (8.4-10.2); Carbon Dioxide 22 mmol/L (22-30); Chloride 113 mmol/L (98-107); Cholesterol 125 mg/dL (<200); Glucose 88 mg/dL (74-99); HDL Cholesterol 57 mg/dL (40-60); LDL Cholesterol,Calculated 58 mg/dL (0-99); Potassium 3.9 mmol/L (3.5-5.1); Sodium 141 mmol/L (137-145); Total Bilirubin 0.4 mg/dL (0.2-1.3); Total Protein 5.5 g/dL (6.3-8.2); Triglycerides 51 mg/dL (<150)
[2018-11-15] MEDS ORDERED: MELOXICAM 7.5 MG TAB PO SCH (09:00)
[2018-11-15] MEDS ORDERED: ATORVASTATIN 40 MG TAB PO SCH (09:00)
[2018-11-15] MEDS ORDERED: FAMOTIDINE 20 MG TAB PO SCH (09:00)
[2018-11-15] MEDS ORDERED: amLODIPine 10 MG TAB PO SCH (09:00)
[2018-11-15] MEDS ORDERED: ASPIRIN 325 MG TAB PO SCH (09:00)
[2018-11-15] MEDS: GABAPENTIN 100 MG CAP PO SCH ×3 (09:58→21:41)
--- NOTE | 2018-11-15 10:33 | P.CNNES ---
History of Present Illness Consult date: 11/15/18 Requesting physician: Gregorio Gomez Reason for Consult: TIA Chief complaint: Episodes of confusion History of Present Illness: This is an 83 RH male h/o ICH and jerome holes as a result of recurrent falls back in 01/2018. His vascular risk factors are age 83, HTN, HL and h/o TIA. Patient presented to the hospital yesterday because found him marching in his place holding a wheelbarrow looking confused. There was concern about dehydration. When family tried to get him to release the wheelbarrow, he lost his balance and almost fell, but family was able to catch him. Then patient reportedly recognized his immediately and denied any issues. There was no witnessed tonic-clonic or myoclonic activity, tongue biting, bowel/bladder incontinence or repetitive behavior suspicious for automatism. Also no h/o aura or migraine. 3 years ago, he was evaluated in the ER for blurred and double vision upon awakening, at which point he was diagnosed with a TIA. Currently, patient denies any focal neuro c/o. Denies any changes in meds or physical/dietary habits. states that he is "not often all there." While in the ER, he underwent acute stroke work-up including CTH and CTA H/N that did not show a reason for acute vascular intervention, so he was admitted to our facility for conservative management. Review of Systems 14-point ROS performed and as per HPI. Neurologically, patient denies other episodes of decreased level or loss of consciousness, headache, seizure, changes in vision, diplopia, amaurosis, changes in hearing, facial droop, ptosis, verti go, hearing loss, tinnitus, dysarthria, dysphagia, aphasia, other focal numbness/weakness not mentioned above, tremors, bowel/bladder incontinence or ataxia. Past Medical History Past Medical History: Cancer, CVA/TIA, GERD/Reflux, Hyperlipidemia, Hypertension Additional Past Medical History / Comment(s): kidney ca, brain hematoma History of Any Multi-Drug Resistant Organisms: None Reported Past Surgical History: Joint Replacement, Orthopedic Surgery Additional Past Surgical History / Comment(s): LT rotator cuff, BILAT knee replacement, RT kidney SX , bladder stimulator, MULTIPLE sinus SX , RT REVERSE SHOULDER, COLONOSCOPY, BILAT CATARACT SX, TURP, PENILE IMPLANT, RECTOCELE, HEMORRHOID SX, jerome holes in skull for hematoma Past Anesthesia/Blood Transfusion Reactions: No Reported Reaction Past Psychological History: No Psychological Hx Reported Smoking Status: Former smoker Past Alcohol Use History: Daily Past Drug Use History: None Reported - Past Family History Mother Family Medical History: CVA/TIA Father Family Medical History: Cancer Sister(s) Family Medical History: Cancer Son(s) Family Medical History: Cancer Daughter(s) Family Medical History: Cancer Additional Family Medical History / Comment(s): 2 DAUGHTERS WITH CANCER Medications and Allergies Home Medications Medication Instructions Recorded Confirmed Type amLODIPine [Norvasc] 10 mg PO DAILY 10/13/16 11/14/18 History Atorvastatin [Lipitor] 40 mg PO DAILY #30 tab 10/15/16 11/14/18 Rx Famotidine [Pepcid] 40 mg PO DAILY 01/16/18 11/14/18 History Gabapentin [Neurontin] 100 mg PO TID 11/14/18 11/14/18 History Meloxicam [Mobic] 15 mg PO DAILY 11/14/18 11/14/18 History Allergies Allergy/AdvReac Type Severity Reaction Status Date / Time codeine AdvReac vomiting Verified 11/14/18 19:18 and passed out Physical Examination - Vital Signs Vital Signs: Vital Signs Temp Pulse Pulse Resp BP BP Pulse Ox 11/15/18 08:00 60 16 11/15/18 07:30 98.4 F 60 16 118/78 95 11/15/18 04:00 98 F 70 16 130/75 97 11/15/18 00:00 98 F 82 16 130/78 97 11/14/18 22:13 98.2 F 75 18 141/79 95 11/14/18 22:06 98.7 F 70 16 135/80 95 11/14/18 20:07 80 18 128/75 96 11/14/18 18:18 97.5 F L 83 18 132/85 Intake and Output 11/14/18 11/15/18 11/15/18 22:59 06:59 14:59 Intake Total 100 400 360 Output Total 500 800 Balance -400 -400 360 Intake: Oral 100 400 360 Output: Urine 500 800 Other: Weight 59.874 kg 64.2 kg Gen NAD Pleasant and cooperative HEENT NCAT Sclera without icterus O/P clear Neck Supple No carotid bruit Cor RRR no m/r/g Lungs CTAB Abd Soft NTND +BS Ext Warm to touch No edema Neuro MS A+Ox4 Normal fluency Able to follow all commands CN PERRL VFF no APD EOMI no nystagmus or ALEXEY No facial asymmetry Masseter's symmetric Hearing intact to normal voice bilaterally Speech not dysarthric Equal elevation of palate Tongue midline Sym shrug and SCM bilaterally Motor Normal bulk/tone No pronator or tremors Strength 5/5 sym throughout Sens Intact to LT x4 No neglect or extinction Coord No dysmetria on FTN bilaterally DTRs 2+/4 sym throughout Toes downgoing bilaterally No clonus at achilles Gait Deferred NIHSS 0 Results - Laboratory Findings CBC and BMP: 11/15/18 06:33 11/15/18 06:33 Abnormal Lab Findings: Abnormal Labs 11/14/18 11/14/18 11/14/18 18:45 18:45 20:15 RBC 3.96 L Hgb 12.7 L Hct 38.8 L Chloride 108 H BUN 35 H ALT 16 L Total Protein Albumin Urine Ketones 1+ H 11/15/18 11/15/18 06:33 06:33 RBC 3.72 L Hgb 11.7 L Hct 36.2 L Chloride 113 H BUN 25 H ALT 18 L Total Protein 5.5 L Albumin 3.1 L Urine Ketones TSH 2.20 - Diagnostic Findings Additional findings: CT Head wo cont 11/15/18. No ICH. Nil acute. CTA Head/Neck 11/15/18. No LVO or stenosis. I have reviewed neuroimages myself. Assessment and Plan Assessment: Episode of confusion, etiology unclear. No apparent acute vascular explanation. Plan: -EEG -TTE -De-escalate aspirin to 81mg/day given h/o ICH -Statin -B12 -Fine to treat BP to normotensive range but avoid hypotension -PT/OT/SP per protocol -DVT prophylaxis -Explained to that his GBP is at low-dose and likely is used for pain control even though it is technically an AED. Should he have EPD on EEG, would start another AED such as LEV -d/w patient/ in detail. All questions answered. Thank you for this consultation. Please call with ?. Time with Patient: Greater than 30 (Time spent in direct patient care, greater than 50% of which was spent in [id number] counseling and coordination of care: 70 minutes.)
--- NOTE | 2018-11-15 11:11 | ECHOF ---
Referral Reason:tia MEASUREMENTS -------- HEIGHT: 172.7 cm WEIGHT: 64.0 kg BP: 130/75 RVIDd: 3.9 cm (< 3.3) IVSd: 1.4 cm (0.6 - 1.1) LVIDd: 4.5 cm (3.9 - 5.3) LVPWd: 1.4 cm (0.6 - 1.1) IVSs: 1.7 cm LVIDs: 3.2 cm LVPWs: 1.8 cm LAESV Index (A-L): 42.97 ml/m Ao Diam: 3.9 cm (2.0 - 3.7) AV Cusp: 1.9 cm (1.5 - 2.6) LA Diam: 4.0 cm (2.7 - 3.8) MV EXCURSION: 18.742 mm (> 18.000) MV EF SLOPE: 95 mm/s (70 - 150) EPSS: 1.6 cm MV E Jeramie: 0.68 m/s MV DecT: 249 ms MV A Jeramie: 1.13 m/s MV E/A Ratio: 0.60 AV maxP.95 mmHg AV meanP.30 mmHg RAP: 5.00 mmHg RVSP: 18.74 mmHg FINDINGS -------- Sinus rhythm with extra systolic beats. This was a technically adequate study. The left ventricular size is normal. There is moderate concentric left ventricular hypertrophy. O verall left ventricular systolic function is low-normal with, an EF between 50 - 55 %. The diastoli c filling pattern is normal for the age of the patient 10.71. The right ventricle is mildly enlarged. LA is severely dilated >40 ml/m2 The right atrial size is normal. Interatrial and interventricular septum intact. There is mild aortic valve sclerosis. There is no evidence of aortic regurgitation. There is no e vidence of aortic stenosis. Mild mitral annular calcification present. There is trace mitral regurgitation. Mild tricuspid regurgitation present. There is no evidence of pulmonary hypertension. The right v entricular systolic pressure, as measured by Doppler, is 18.74mmHg. There is no pulmonic regurgitation present. The aortic root is mildy dilated. Normal inferior vena cava with normal inspiratory collapse consistent with estimated right atrial pre ssure of 5 mmHg. There is no pericardial effusion. CONCLUSIONS -------- 1. Sinus rhythm with extra systolic beats. 2. This was a technically adequate study. 3. The left ventricular size is normal. 4. There is moderate concentric left ventricular hypertrophy. 5. The diastolic filling pattern is normal for the age of the patient 10.71 6. The right ventricle is mildly enlarged. 7. LA is severely dilated >40 ml/m2 8. The right atrial size is normal. 9. Interatrial and interventricular septum intact. 10. There is mild aortic valve sclerosis. 11. There is no evidence of aortic regurgitation. 12. There is no evidence of aortic stenosis. 13. Mild mitral annular calcification present. 14. There is trace mitral regurgitation. 15. Mild tricuspid regurgitation present. 16. There is no evidence of pulmonary hypertension. 17. The right ventricular systolic pressure, as measured by Doppler, is 18.74mmHg. 18. There is no pulmonic regurgitation present. 19. The aortic root is mildy dilated. 20. Normal inferior vena cava with normal inspiratory collapse consistent with estimated right atrial pressure of 5 mmHg. 21. There is no pericardial effusion. RESEARCH CHEMICAL ENGINEER: Yanet Alexis RDCS
--- NOTE | 2018-11-15 15:19 | P.PN ---
Progress Note - Text Progress Note Date: 11/15/18 EEG no EPD. TTE shows severe LAE. My concern is small posterior circulation CVA from cardioembolic phenomenon. MRI Brain ordered. d/w WANDER. Neurology will be available again on 11/18/18.
--- NOTE | 2018-11-15 16:06 | EEG ---
ELECTROENCEPHALOGRAM REPORT DATE OF TESTING: November 15, 2018. CLINICAL PROBLEM: Episode of confusion and decreased responsiveness, history of intracranial hemorrhage requiring jerome holes. EEG was requested to rule out epileptiform activity. MEDICATIONS: Mobic, gabapentin, famotidine, atorvastatin, aspirin, amlodipine. TYPE OF RECORDING: Bedside tracing using the 10-20 international electrode placement system. No sedation was given prior to the beginning of this recording. FINDINGS: This tracing is seen with a theta and occasionally delta slowing. Photic stimulation elicits a symmetric driving response. Hyperventilation is not performed in this recording. As the tracing progresses, there is appearance of sleep spindles and K complexes indicating the patient is in stage 2 sleep. Towards the end of the recording, there is spontaneous self arousal followed by appearance of a symmetric posterior alpha rhythm of 8-9 hertz that attenuates on eye opening and returns upon eye closure. There is no background asymmetry, ictal or interictal patterns appreciated. IMPRESSION: This is a normal awake/sleep electroencephalogram with evidence of stage 2 sleep. There is no background asymmetry or epileptiform discharges seen. Clinical correlation is advised. RICHARD / IJN: [id number] / MTDD
--- NOTE | 2018-11-15 17:40 | P.PN ---
Subjective Progress Note Date: 11/15/18 The patient seen and examined at bedside, the son is present. Feeling much better today Objective - Vital Signs Vital signs: Vital Signs Temp 97.3 F L 11/15/18 12:11 Pulse 57 L 11/15/18 12:11 Resp 16 11/15/18 12:11 BP 130/73 11/15/18 12:11 Pulse Ox 95 11/15/18 12:11 Intake & Output 11/14/18 11/15/18 11/15/18 18:59 06:59 18:59 Intake Total 500 360 Output Total 1300 Balance -800 360 Weight 59.874 kg 64.2 kg Intake: Oral 500 360 Output: Urine 1300 - Exam Constitutional: No acute distress, conversant, pleasant Eyes: Anicteric sclerae, moist conjunctiva, no lid-lag, PERRLA ENMT: NC/AT,Oropharynx clear, no erythema, exudates Neck:Supple, FROM, no masses, or JVD, No carotid bruits; No thyromegaly Lungs: Clear to auscultation, Clear to percussion, Normal respiratory effort, no accessory muscle use Cardiovascular: Heart regular in rate and rhythm, No murmurs, gallops, or rubs no peripheral edema Abdominal: Soft Nontender, nom distended, no guarding, no rebound or rigidity, Normoactive bowel sounds No hepatomegaly, No splenomegaly, No palpable mass No abdominal wall hernia noted Skin: Normal temperature, tone, texture, turgor, No induration No subcutaneous nodules, No rash, lesions, No ulcers Extremities:No digital cyanosis No clubbing, Pedal pulses intact and symmetrical Radial pulses intact and symmetrical Normal gait and station, No calf tenderness Psychiatric: Alert and oriented to person, place and time, Appropriate affect Intact judgement Neuro: Muscles Strength 5/5 in all 4 extremities, Sensation to light touch grossly present throughout, Cranial nerves II-XII grossly intact. No focal sensory deficits - Labs CBC & Chem 7: 11/15/18 06:33 11/15/18 06:33 Labs: Abnormal Lab Results - Last 24 Hours (Table) 11/14/18 11/14/18 11/14/18 Range/Units 18:45 18:45 20:15 RBC 3.96 L (4.30-5.90) m/uL Hgb 12.7 L (13.0-17.5) gm/dL Hct 38.8 L (39.0-53.0) % Chloride 108 H (98-107) mmol/L BUN 35 H (9-20) mg/dL ALT 16 L (21-72) U/L Total Protein (6.3-8.2) g/dL Albumin (3.5-5.0) g/dL Urine Ketones 1+ H (Negative) 11/15/18 11/15/18 Range/Units 06:33 06:33 RBC 3.72 L (4.30-5.90) m/uL Hgb 11.7 L (13.0-17.5) gm/dL Hct 36.2 L (39.0-53.0) % Chloride 113 H (98-107) mmol/L BUN 25 H (9-20) mg/dL ALT 18 L (21-72) U/L Total Protein 5.5 L (6.3-8.2) g/dL Albumin 3.1 L (3.5-5.0) g/dL Urine Ketones (Negative) Assessment and Plan (1) Confusion Narrative/Plan: * Concern for CVA, patient will likely need MRI to rule out small posterior circulation CVA * Initial workup with CT of the head and neck negative so far * We'll order EEG, echocardiogram showing moderate LVH and severely dilated left atrium * Continue with statin therapy and aspirin * Neurology consultation requested Current Visit: Yes Status: Acute Code(s): R41.0 - DISORIENTATION, UNSPECIFIED SNOMED Code(s): 176323547 (2) Essential (primary) hypertension Narrative/Plan: * Blood pressure stable and controlled Current Visit: Yes Status: Chronic Code(s): I10 - ESSENTIAL (PRIMARY) HYPERTENSION SNOMED Code(s): 03309736 (3) Hyperlipidemia Current Visit: Yes Status: Acute Code(s): E78.5 - HYPERLIPIDEMIA, UNSPECIFIED SNOMED Code(s): 76562802 (4) Transient cerebral ischemia Narrative/Plan: * Patient reports history of TIA * Continue with aspirin and statin regimen and risk factor modification Current Visit: Yes Status: Chronic Code(s): G45.9 - TRANSIENT CEREBRAL ISCHEMIC ATTACK, UNSPECIFIED SNOMED Code(s): 896534691
--- NOTE | 2018-11-15 20:09 | MR ---
EXAMINATION TYPE: MR brain wo con DATE OF EXAM: 11/15/2018 COMPARISON: 2519 CT brain without contrast HISTORY: AMS r/o CVA h/o ICH s/p jerome holes TECHNIQUE: Standard multiplanar, multisequence MRI departmental protocol. Diffusion weighted imaging was performed. FINDINGS: EXTRACTION COMPARTMENT: Most conspicuous on the axial T2 FLAIR sequence is a small extra-axial fluid collection anterior to the left frontal pole, measuring thickness anterior to the left frontal lobe. The finding is consistent with small left subdural hemorrhage. There is subtle left frontal lobe sulc al effacement, but no midline or central mass effect. The extra-axial compartment is otherwise unremarkable. Vascular flow voids are unremarkable. INTRAAXIAL COMPARTMENT: There is no intra-axial mass or mass effect. No restricted diffusion to sugge st acute or subacute infarction. There is a moderately-prominent pattern of baires radiata and centru m semiovale T2 hyperintense foci bilaterally and symmetrically. These foci are entirely nonspecific a nd seen frequently in this age group. CALVARIUM/OTHER: There are no focal skeletal findings. Bilateral jerome holes are seen involving the ri ght and left parietal bones high over the convexity. T2 hyperintensity is seen throughout the left f rontal sinus and left anterior/middle ethmoid sinus air cells, which can correlate with a clinical di agnosis of of sinusitis. Remainder of the paranasal sinuses and the mastoid sinus air cells and the m iddle ear cavities are clear. Orbits are unremarkable. IMPRESSION: SMALL LEFT SUBACUTE SUBDURAL HEMATOMA WITHOUT CENTRAL MASS EFFECT, LOCATED ANTERIORLY OVER THE FRONTA L POLE. Results discussed with the patient's nurse Eddie at 8:00 pm.
[2018-11-15 20:30] LABS: Glucose,Whole Blood 103 mg/dL (75-99)
--- NOTE | 2018-11-15 21:31 | P.DS ---
Providers Date of admission: 11/14/18 20:26 Expected date of discharge: 11/15/18 Attending physician: Gregorio Gomez MD Consults: 11/14/18 23:05 Consult Physician Routine Consulting Provider: David Durand Consult Reason/Comments: TIA Do you want consulting provider notified?: Yes, Notify in am Primary care physician: Arnoldo Walker [facility] Course: Final diagnosis at Transfer left acute small subdural hematoma , no mass effect TIA reason for transfer , unavailability of service at our facility, patient developed new subdural hematoma and requires neurosurgical evaluation Hospital course This 83-year-old male with history of Intracranial bleeds (3 years ago 2/2 fall ) , TIA, hyperlipidemia and hypertension patient presented to the hospital due to brief episode of confusion , he was found in the hall marching in his place holding wheelbarrel for unknown duration of time, his daughter upon finding him could not get his attention, and he almost fell when she tried to release his 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 upon which he was brought to the hospital in private car. neurological evaluation performed last night, and his exam was non focal, CT of brain and CTA of brain showed no acute process. this morning he had neurology evaluting him, and again exam non focal, EEG was unremarkable , ECHO cardiogram showed no thrombus, LVEF 50-55% MRI of the brain done this evening, showed new finding of small left subdural hematoma without central mass effect. again neuro exam non focal and vital signs are stable . patient remains completely asymptomatic. Aspirin discontinued, meloxicam discontinued. patient on mechanical DVT PPX. I met with the patient and family, and discussed the need to transfer to a facility where they have neurosurgical team for evaluation. process initiated immediately upon receiving imaging results , [facility] is preferred facility, im awaiting call from transfer team to get an accepting physician. Constitutional: vital signs stable, Not in acute distress, pleasant, conversant, temperature 90.8 Fahrenheit, heart rate 63, blood pressure 123/61, respiratory 16, oxygen saturation 95% on room air Eyes: Pupils equal round reactive to light and accommodation, anicteric sclerae, moist conjunctivae ENMT: Normocephalic, atraumatic, oropharynx clear, no erythema/exudate Neck: Supple, no thyromegally, no JVD, no carotid bruits Lungs: Clear to auscultation bilaterally, clear to percussion, normal respiratory effort no use of accessory muscles Cardiovascular: Regular rate and rhythm, no murmurs, no gallops, no rubs, no peripheral edema Gastrointestinal: Soft, no tenderness to palpation, no palpable hepatosplenomegally, bowel sounds positive, no abdominal wall hernias Extremities: No digital cyanosis or clubbing, peripheral pulses palpable and equal over bilateral radial arteries and dorsalis pedis artery, no calf muscle tenderness Psych: Alert, oriented to place, person and time, appropriate affect, intact judgment Neuro: Cranial nerves II-XII grossly intact, hard of hearing, no focal sensory deficits to touch, no focal neuro deficits at this time, strength 5/5 throughout, no dysmetria, no diplopia, no dysrthria, Plan to discharge patient to [facility] for neurosurgical evaluation I spoke with Dr. BROOKS hot iron worker physician who accepted the patient plan is to admit him to the ICU for close monitoring overnight Aspirin was discontinued meloxicam was discontinued Neurochecks with close monitoring Patient will be discharged currently stable condition at this time, prognosis is guarded with a new onset subdural hematoma Patient daughter at bedside updated questions answered case discussed with her plan discussed with her she verbalized agreement she explained to the patient also verbalized agreement 45 minutes were spent discharging this patient, and more than 50% of the time was spent in counseling the patient and family and in coordinating care. Pertinent Studies: MRI of the brain showing small left subdural hematoma without central mass effect anteriorly over the frontal pole CT of the brain yesterday without contrast showed no evidence of bleeding. CT angiogram of the head and neck yesterday showed no acute process Patient Condition at Discharge: Stable Plan - Discharge Summary Discharge Rx Participant: No New Discharge Prescriptions: Continue amLODIPine [Norvasc] 10 mg PO DAILY Atorvastatin [Lipitor] 40 mg PO DAILY #30 tab Famotidine [Pepcid] 40 mg PO DAILY Gabapentin [Neurontin] 100 mg PO TID Discontinued Meloxicam [Mobic] 15 mg PO DAILY Discharge Medication List amLODIPine [Norvasc] 10 mg PO DAILY 10/13/16 [History] Atorvastatin [Lipitor] 40 mg PO DAILY #30 tab 10/15/16 [Rx] Famotidine [Pepcid] 40 mg PO DAILY 01/16/18 [History] Gabapentin [Neurontin] 100 mg PO TID 11/14/18 [History] Follow up Appointment(s)/Referral(s): Arnoldo Coronel MD [Primary Care Provider] - 1-2 days Patient Instructions/Handouts: Transient Ischemic Attack (ED), Intracranial Hematoma (ED) Discharge Disposition: DC/TRNS INTERMEDIATE CARE FAC
[2018-11-15 22:03] VITALS: BP 127/67; PULSE 62; RESP 17; TEMP 98.2
[2018-11-16] MEDS ORDERED: ASPIRIN 81 MG PO SCH (09:00)
== END 2018-11-15 22:23 | disposition other institution (70) ==
LOC: EC 18:17 → 3SCARD 20:26
PROVIDERS: ADMIT Internal Medicine; ATTEND Internal Medicine
DX: S06.5X9A Traumatic subdural hemorrhage with loss of consciousness of unspecified duration, initial encounter (principal); E78.5 Hyperlipidemia, unspecified; I10 Essential (primary) hypertension; D64.9 Anemia, unspecified; E86.0 Dehydration; R29.700 NIHSS score 0; R29.6 Repeated falls; Z91.81 History of falling; K21.9 Gastro-esophageal reflux disease without esophagitis; H91.90 Unspecified hearing loss, unspecified ear; Z86.73 Personal history of transient ischemic attack (TIA), and cerebral infarction without residual deficits; Z85.528 Personal history of other malignant neoplasm of kidney; Z87.891 Personal history of nicotine dependence; Z79.899 Other long term (current) drug therapy; Z79.1 Long term (current) use of non-steroidal anti-inflammatories (NSAID); Z88.5 Allergy status to narcotic agent; Z80.9 Family history of malignant neoplasm, unspecified
CPT/HCPCS: 93005 ×2; 96360; 96361; 99285; 36415; 95819; 93306; 97161; 97165; 80061; 80053 ×2; 84443; 82607; 82550; 82553; 84484; 85025 ×2; 85610; 85730; 81003; 71046; 70496; 70450; 70498; 70551; G0378 ×2

== ENCOUNTER → 2018-12-09 | Outpatient (CLI) | payer MEDICARE, BC ==
--- NOTE | 2018-12-09 15:45 | CT ---
EXAMINATION TYPE: CT brain wo con DATE OF EXAM: 12/09/2018 COMPARISON: 11/14/2017 INDICATION: Traumatic subdural hemorrhage. Patient poor historian. DLP: 1235.2 mGycm, Automated exposure control for dose reduction was used. CONTRAST: None CT of the brain is performed utilizing 3 mm thick sections through the posterior fossa and 3 mm thick sections through the remaining calvarium. Study is performed within 24 hours of arrival to the hosp ital. No abnormal hyperdensity is present to suggest an acute intracranial hemorrhage. No mass lesion is evident. No acute infarcts are evident. Periventricular white matter hypodensity is present, likely on the bas is of chronic white matter ischemic changes. No suspicious subdural hematoma is evident. Vinh holes a re present bilaterally. Ventricles and sulci are appropriate for the patient age. Paranasal sinuses and mastoid air cells within the [id number] are clear. IMPRESSIONS: 1. Chronic appearing white matter ischemic changes.
== END | disposition home or self-care (01) ==
LOC: RADCTMAIN 14:59
PROVIDERS: ATTEND Family Medicine
DX: R90.89 Other abnormal findings on diagnostic imaging of central nervous system (principal)
CPT/HCPCS: 70450

== ENCOUNTER → 2018-12-30 | Outpatient (CLI) | payer MEDICARE, BC | END | disposition home or self-care (01) | LOC: RADECHMAIN 15:01 | DX: Z53.9 Procedure and treatment not carried out, unspecified reason (principal) ==

== ENCOUNTER → 2019-01-10 | Outpatient (CLI) | payer MEDICARE, BC ==
--- NOTE | 2019-01-10 08:10 | CT ---
EXAMINATION TYPE: CT brain wo con DATE OF EXAM: 01/10/2019 COMPARISON: December 09, 2018 HISTORY: benign neoplasm of brain, Supratentorial CT DLP: [address] of the brain was performed. The ventricles, basal cisterns and sulci overlying the cerebral convexities demonstrate mild enlargem ent. There is no evidence for intracranial hemorrhage or sulcal effacement. There is decreased attenuation about the periventricular white matter and deep white matter of both c erebral hemispheres, compatible with chronic small vessel ischemia. Differential diagnosis does inclu de demyelination. No mass effects are seen.No midline shift. Bilateral jerome holes are noted. If symptoms persist consider MRI. IMPRESSION: 1. Age related atrophic and chronic small vessel ischemic change without acute intracranial process s een at this time.
== END | disposition home or self-care (01) ==
LOC: RADCTMAIN 07:23
PROVIDERS: ATTEND Psychiatry & Neurology Neurology
DX: G31.1 Senile degeneration of brain, not elsewhere classified (principal); I67.82 Cerebral ischemia
CPT/HCPCS: 70450

== ENCOUNTER → 2019-11-11 | Outpatient (CLI) | payer MEDICARE, BC ==
[2019-11-11 17:08] LABS: ALT 12 U/L (4-49); AST 18 U/L (17-59); African American GFR (CKD) >90 (>60 ml/min/1.73 sqM); Albumin 4.2 g/dL (3.5-5.0); Alkaline Phosphatase 108 U/L (38-126); Anion Gap 7 mmol/L; Blood Urea Nitrogen 19 mg/dL (9-20); Calcium 9.4 mg/dL (8.4-10.2); Carbon Dioxide 26 mmol/L (22-30); Chloride 105 mmol/L (98-107); Glucose 94 mg/dL (74-99); Non-African American GFR(CKD) 89 (>60 ml/min/1.73 sqM); Sodium 138 mmol/L (137-145); Total Bilirubin 0.6 mg/dL (0.2-1.3); Total Protein 6.8 g/dL (6.3-8.2)
--- NOTE | 2019-11-11 19:09 | CT ---
EXAMINATION TYPE: CT brain w con DATE OF EXAM: 11/11/2019 COMPARISON: 01/10/2019 HISTORY: weakness, memory loss CT DLP: 1121 mGycm Automated exposure control for dose reduction was used. CONTRAST: CT scan of the head is performed with IV Contrast, patient injected with 100 mL of Isovue 300. FINDINGS: There is no abnormal enhancing mass or midline shift identified. There is mild to moderate generalize d degenerative change. Low-attenuation the white matter is nonspecific but most typical remote microv ascular ischemia. No enhancing masses. Changes of chronic sinusitis are noted with periosteal thicken ing involving the right maxillary sinus. Osteoma in the right ethmoid air cells noted. Correlation fo r previous cataract surgery. Intracranial atherosclerotic changes are noted chronic calvarial defects are stable. IMPRESSION: 1. Degenerative and nonspecific white matter changes most typical remote ischemia. 2. Changes of chronic sinusitis.
== END | disposition home or self-care (01) ==
LOC: RADCTMAIN 15:57
PROVIDERS: ATTEND Psychiatry & Neurology Neurology
DX: R90.82 White matter disease, unspecified (principal); G31.89 Other specified degenerative diseases of nervous system; S06.5X0A Traumatic subdural hemorrhage without loss of consciousness, initial encounter; G40.019 Localization-related (focal) (partial) idiopathic epilepsy and epileptic syndromes with seizures of localized onset, intractable, without status epilepticus
CPT/HCPCS: 80053; 80177; 70460; 36415; Q9967

== ENCOUNTER → 2021-02-04 | Outpatient (CLI) | payer MEDICARE, BC ==
--- NOTE | 2021-02-05 10:17 | CT ---
EXAMINATION TYPE: CT brain wo con DATE OF EXAM: 02/04/2021 COMPARISON: 11/11/2019 HISTORY: h/o alzheimer's disease CT DLP: 1064.3 mGycm Automated exposure control for dose reduction was used. FINDINGS: The ventricles, basal cisterns and sulci over convexities are mildly moderately enlarged consistent w ith the patient's age. There is mild diffuse abnormal density in the periventricular white matter of both cerebral hemispher es consistent with chronic ischemic white matter demyelination. There is no mass effect. There is no acute intra or extra-axial hemorrhage. Grossly the posterior fossa including the brainstem, fourth ventricle and cerebellar pontine angles a ppear normal. Intraorbital contents appear normal and symmetric. There are chronic inflammatory changes in the paranasal sinuses. The mastoid air cells are well aerat ed. There are calvarial defect in the bilateral parietal lobes consistent with poor pole defects. IMPRESSION: No acute bleed or mass effect. Chronic sinusitis. Bilateral calvarial postsurgical defects. Generaliz ed atrophy and moderate chronic ischemic white matter change. IMPRESSION:
== END | disposition home or self-care (01) ==
LOC: RADCTMAIN 18:11
PROVIDERS: ATTEND Psychiatry & Neurology Neurology
DX: G30.1 Alzheimer's disease with late onset (principal)
CPT/HCPCS: 70450

== ENCOUNTER 2021-03-15 10:14 | Emergency (ER) | payer MEDICARE, BC ==
[2021-03-15 10:22] VITALS: BP 149/77; PULSE 76; RESP 18; TEMP 97.5
--- NOTE | 2021-03-15 12:27 | ED ---
General Adult HPI - General Chief complaint: Fall Stated complaint: fall Time Seen by Provider: 03/15/21 12:04 Source: patient, family Mode of arrival: wheelchair Limitations: no limitations - History of Present Illness Initial comments: Dictation was produced using [employer] dictation software. please excuse any grammatical, word or spelling errors. Chief Complaint: 85-year-old male presents to the emergency department after fall History of Present Illness: 85-year-old male is past medical history of dementia, mental debility. Patient lives at home by himself he has home visiting nurses. He is brought to the emergency department by his son. He was found at home on the ground. Patient is a poor historian. He is unable to pr ovide history present illness. Sign at the bedside reports that patient is a history of hemorrhagic brain injury. Son states that he found him on the floor. Is unclear how long patient is been on the floor. Son thinks it is probably 2- 3 hours. Son visited patient approximately 2 days prior to today he was at his baseline. The ROS documented in this emergency department record has been reviewed and confirmed by me. Those systems with pertinent positive or negative responses have been documented in the HPI. All other systems are other negative and/or noncontributory. PHYSICAL EXAM: General Impression: Alert and oriented x2/4, not in acute distress HEENT: Mild ecchymoses to the left ear, extra-ocular movements intact, pupils equal and reactive to light bilaterally, mucous membranes moist. Cardiovascular: Heart regular rate and rhythm Chest: Able to complete full sentences, no retractions, no tachypnea Abdomen: abdomen soft, non-tender, non-distended, no organomegaly Musculoskeletal: Pulses present and equal in all extremities, no peripheral edema Motor: no focal deficits noted Neurological: CN II-XII grossly intact, no focal motor or sensory deficits noted Skin: Intact with no visualized rashes Psych: Normal affect and mood ED course: 85-year-old male past medical history of dementia presents to the emergency department after being found on the ground. Suspected any fall sometime today. This concerned the patient was on the ground for approximately 2-3 hours. Physical exam does not reveal any significant traumatic injuries. Vital signs upon arrival are within acceptable limits. Patient's history of hemorrhagic brain injury. Patient observed in emergency department for proximal 25 hours. Is reevaluated at bedside 3:30 PM found to be stable medical condition. Son at the bedside reports the patient appears baseline. He is notified of the results of the lab and imaging studies. Patient did not have a EKG during his visit. It was recommended that patient get an EKG however, family was becoming impatient due to long wait times and refused so that they can be discharged. - Related Data Home Medications Medication Instructions Recorded Confirmed Famotidine [Pepcid] 40 mg PO DAILY 01/16/18 03/15/21 Donepezil 23mg 23 mg PO DAILY 03/15/21 03/15/21 amLODIPine [Norvasc] 5 mg PO DAILY 03/15/21 03/15/21 cloNIDine HCL 0.1 mg PO HS 03/15/21 03/15/21 levETIRAcetam [Keppra] 500 mg PO Q12HR 03/15/21 03/15/21 Previous Rx's Medication Instructions Recorded Atorvastatin [Lipitor] 40 mg PO DAILY #30 tab 10/15/16 Allergies Allergy/AdvReac Type Severity Reaction Status Date / Time codeine AdvReac vomiting Verified 03/15/21 13:49 and passed out Review of Systems ROS Statement: Those systems with pertinent positive or pertinent negative responses have been documented in the HPI. ROS Other: All systems not noted in ROS Statement are negative. Past Medical History Past Medical History: Cancer, CVA/TIA, GERD/Reflux, Hyperlipidemia, Hypertension Additional Past Medical History / Comment(s): kidney ca, brain hematoma History of Any Multi-Drug Resistant Organisms: None Reported Past Surgical History: Joint Replacement, Orthopedic Surgery Additional Past Surgical History / Comment(s): LT rotator cuff, BILAT knee replacement, RT kidney SX , bladder stimulator, MULTIPLE sinus SX , RT REVERSE SHOULDER, COLONOSCOPY, BILAT CATARACT SX, TURP, PENILE IMPLANT, RECTOCELE, HEMORRHOID SX, jerome holes in skull for hematoma Past Anesthesia/Blood Transfusion Reactions: No Reported Reaction Past Psychological History: No Psychological Hx Reported Smoking Status: Never smoker Past Alcohol Use History: Daily Past Drug Use History: None Reported - Past Family History Mother Family Medical History: CVA/TIA Father Family Medical History: Cancer Sister(s) Family Medical History: Cancer Son(s) Family Medical History: Cancer Daughter(s) Family Medical History: Cancer Additional Family Medical History / Comment(s): 2 DAUGHTERS WITH CANCER General Exam Limitations: no limitations Course Vital Signs 03/15/21 10:16 Temperature 97.5 F L Pulse Rate 76 Respiratory 18 Rate Blood Pressure 149/77 O2 Sat by Pulse 97 Oximetry Medical Decision Making - Lab Data Result diagrams: 03/15/21 12:27 03/15/21 12:27 Lab Results 03/15/21 03/15/21 03/15/21 Range/Units 12:27 12:27 12:27 WBC 11.7 H (3.8-10.6) k/uL RBC 4.52 (4.30-5.90) m/uL Hgb 14.4 (13.0-17.5) gm/dL Hct 42.2 (39.0-53.0) % MCV 93.5 (80.0-100.0) fL MCH 31.9 (25.0-35.0) pg MCHC 34.2 (31.0-37.0) g/dL RDW 13.7 (11.5-15.5) % Plt Count 259 (150-450) k/uL MPV 8.1 Neutrophils % 83 % Lymphocytes % 5 % Monocytes % 10 % Eosinophils % 0 % Basophils % 0 % Neutrophils # 9.7 H (1.3-7.7) k/uL Lymphocytes # 0.6 L (1.0-4.8) k/uL Monocytes # 1.2 H (0-1.0) k/uL Eosinophils # 0.0 (0-0.7) k/uL Basophils # 0.0 (0-0.2) k/uL PT 10.0 (9.0-12.0) sec INR 0.9 (<1.2) APTT 21.9 L (22.0-30.0) sec Sodium 139 (137-145) mmol/L Potassium 3.9 (3.5-5.1) mmol/L Chloride 108 H (98-107) mmol/L Carbon Dioxide 22 (22-30) mmol/L Anion Gap 9 mmol/L BUN 16 (9-20) mg/dL Creatinine 0.66 (0.66-1.25) mg/dL Est GFR (CKD-EPI)AfAm >90 (>60 ml/min/1.73 sqM) Est GFR (CKD-EPI)NonAf 87 (>60 ml/min/1.73 sqM) Glucose 135 H (74-99) mg/dL Calcium 9.7 (8.4-10.2) mg/dL Creatine Kinase 619 H (55-170) U/L Lipase 84 (23-300) U/L Disposition Clinical Impression: Fall Disposition: HOME SELF-CARE Condition: Fair Instructions (If sedation given, give patient instructions): Fall Prevention for Older Adults (ED) Is patient prescribed a controlled substance at d/c from ED?: No Referrals: Arnoldo Coronel MD [Primary Care Provider] - 1-2 days
[2021-03-15 12:56] LABS: INR 0.9 (<1.2)
[2021-03-15 13:06] LABS: African American GFR (CKD) >90 (>60 ml/min/1.73 sqM); Anion Gap 9 mmol/L; Blood Urea Nitrogen 16 mg/dL (9-20); Calcium 9.7 mg/dL (8.4-10.2); Carbon Dioxide 22 mmol/L (22-30); Chloride 108 mmol/L (98-107); Creatine Kinase 619 U/L (55-170); Glucose 135 mg/dL (74-99); Lipase 84 U/L (23-300); Non-African American GFR(CKD) 87 (>60 ml/min/1.73 sqM); Potassium 3.9 mmol/L (3.5-5.1); Sodium 139 mmol/L (137-145)
[2021-03-15 13:07] LABS: Basophils % (A) 0 %; Eosinophils % (A) 0 %; HCT 42.2 % (39.0-53.0); HGB 14.4 gm/dL (13.0-17.5); Lymphocytes # (A) 0.6 k/uL (1.0-4.8); Lymphocytes % (A) 5 %; MCH 31.9 pg (25.0-35.0); MCHC 34.2 g/dL (31.0-37.0); MCV 93.5 fL (80.0-100.0); Mean Platelet Volume 8.1; Monocytes # (A) 1.2 k/uL (0-1.0); Monocytes % (A) 10 %; Neutrophils # (A) 9.7 k/uL (1.3-7.7); Neutrophils % (A) 83 %; Platelet Count 259 k/uL (150-450); RBC 4.52 m/uL (4.30-5.90); RDW 13.7 % (11.5-15.5); WBC 11.7 k/uL (3.8-10.6)
[2021-03-15 13:08] LABS: Partial Thromboplastin Time 21.9 sec (22.0-30.0)
--- NOTE | 2021-03-15 13:55 | CT ---
EXAMINATION TYPE: CT brain cspine wo con DATE OF EXAM: 03/15/2021 COMPARISON: CT brain February 04, 2021 HISTORY: Fall injury with headache and neck pain CT DLP: 1284 mGycm. Automated Exposure Control for Dose Reduction was Utilized. TECHNIQUE: CT scan of the head and cervical spine are performed without contrast. FINDINGS: There is no acute intracranial hemorrhage or midline shift identified. Mild to moderate v entricular and sulcal prominence redemonstrated. Moderate to severe low-attenuation in the periventri cular white matter again seen. Calcification bilateral globes redemonstrated. Partial opacification c onsistent with cerumen in the right external auditory canal redemonstrated. Evidence of prior paranas al sinus surgery with completely opacified right sphenoid sinus and moderate mucosal thickening in th e maxillary sinuses with some bony formation on the right redemonstrated. Near complete opacification left frontal sinus redemonstrated with thickened sclerotic sinus wall. Small right ethmoid osteoma/1 9 redemonstrated. There are bilateral parietal jerome holes axial image 44 redemonstrated. Cervical spine is visualized in its entirety from C1 through upper thoracic levels and demonstrates l evoconvex scoliosis centered upper thoracic spine without evidence of acute fracture or dislocation. Prevertebral soft tissue appears within normal limits. The C1-C2 articulation is within normal limi ts on the coronal images. There is grade 1 retrolisthesis C4 on C5 and C5 on C6. Moderate disc space narrowing at these levels is present. Posterior spur disc complexes efface the anterior thecal sac at these levels. Osseous structures are demineralized. Review of axial images shows multilevel uncovertebral facet degenerative changes greater on the left contributing to multilevel bilateral neural foraminal narrowing. Thyroid gland is normal in size. Jennifer g apices show no pneumothorax. IMPRESSION: 1. There is no acute fracture or dislocation evident in the cervical spine. 2. No acute intracranial hemorrhage or midline shift is seen.
--- NOTE | 2021-03-15 14:02 | CT ---
EXAMINATION TYPE: CT ChestAbdPelvis w con DATE OF EXAM: 03/15/2021 COMPARISON: CT chest January 12, 2018. CT abdomen November 22, 2017 HISTORY: Fall, history of renal CA CT DLP: 953.1 mGycm. Automated Exposure Control for Dose Reduction was Utilized. CONTRAST: CT scan of the thorax, abdomen and pelvis is performed with IV Contrast, patient injected with 100 mL of Isovue 300. FINDINGS: LUNGS: Dependent atelectasis bilateral lower lobes. No suspicious focal consolidation. Stable 3 mm p eripheral left upper lobe nodule axial image 10. Stable 7 mm right middle lobe nodule axial image 37. There is no pleural effusion or pneumothorax seen. The tracheobronchial tree is patent. MEDIASTINUM: There are no greater than 1 cm hilar or mediastinal lymph nodes. No cardiomegaly or pe ricardial effusion is seen. Ascending aortic aneurysm up to 4.0 cm axial image 25 redemonstrated. Ca lcification at level of the mitral valve. Severe three-vessel coronary artery calcification and/or st ents. LIVER/GB: No significant abnormality is appreciated. PANCREAS: No significant abnormality is seen. SPLEEN: Nonspecific 2.6 cm round hyperdense lesion in the spleen axial image 49 favors benign flash f illing hemangioma. ADRENALS: No significant abnormality is seen. KIDNEYS: Exophytic 1.5 cm thin-walled cyst posteriorly left kidney axial image 59. Additional subcent imeter cyst lower pole of the left kidney coronal image 71. Unremarkable bladder. Penile pump prosthe sis with reservoir anterior right pelvis has local mass effect on bladder. BOWEL: Moderate fecal prominence in the right and transverse colon. No suspicious dilatation. Patient has little intra-abdominal fat. GENITAL ORGANS: Central calcifications in the normal sized prostate gland. Scattered bilateral pelvic phleboliths. LYMPH NODES: No greater than 1cm abdominal or pelvic lymph nodes are appreciated. OSSEOUS STRUCTURES: Osseous structures are demineralized. Large hemangioma involving L4 vertebra. Mil [id number] multilevel disc space narrowing and spurring. Metallic artifact right shoulder surgery causes streak artifact. Pelvic or sacral stimulator device in the left pelvis posteriorly noted. OTHER: No acute posttraumatic finding identified. IMPRESSION: No acute osseous fracture, abnormal fluid collection, or evidence of solid organ injury i n the thorax, abdomen, or pelvis.
[2021-03-15] MEDS ORDERED: HYDROcodone/APAP 5-325MG 1 EACH TAB PO STA (15:25)
== END 2021-03-15 15:49 | disposition home or self-care (01) ==
LOC: EC 10:14
DX: Z04.3 Encounter for examination and observation following other accident (principal); I10 Essential (primary) hypertension; Z86.73 Personal history of transient ischemic attack (TIA), and cerebral infarction without residual deficits; Z79.899 Other long term (current) drug therapy; Z88.5 Allergy status to narcotic agent; W18.39XA Other fall on same level, initial encounter
CPT/HCPCS: 36415; 80048; 82550; 83690; 85025; 85610; 85730; 72125; 70450; 71260; 74177; 99284; Q9967

== ENCOUNTER → 2021-03-23 | Outpatient (CLI) | payer MEDICARE, BC ==
--- NOTE | 2021-03-23 12:33 | US ---
EXAMINATION TYPE: US bladder DATE OF EXAM: 03/23/2021 COMPARISON: NONE CLINICAL HISTORY: R32 Urinary incontinence. elderly patient does not feel like he empties his bladder all the way, patient does have penile pump adjacent to bladder EXAM MEASUREMENTS: Post Void Residual Volume: 13.3 mL Color Doppler performed to assess ureteral jets. Bilateral Jets seen: not seen Normal Post Void Residual (less than 50ml): yes IMPRESSION: 1. Normal voiding of the urinary bladder. 2. The adjacent gland reservoir appears normal.
== END | disposition home or self-care (01) ==
LOC: RADUSWWP 11:09
PROVIDERS: ATTEND Family Medicine
DX: R32 Unspecified urinary incontinence (principal)
CPT/HCPCS: 76857

== ENCOUNTER 2021-04-21 12:45 | Emergency (ER) | payer MEDICARE, BC ==
[2021-04-21 12:58] VITALS: RESP 18
[2021-04-21 14:12] LABS: Basophils % (A) 0 %; Eosinophils # (A) 0.1 k/uL (0-0.7); Eosinophils % (A) 2 %; HCT 39.3 % (39.0-53.0); HGB 12.9 gm/dL (13.0-17.5); Lymphocytes # (A) 0.5 k/uL (1.0-4.8); Lymphocytes % (A) 8 %; MCH 32.5 pg (25.0-35.0); MCHC 32.8 g/dL (31.0-37.0); Mean Platelet Volume 8.6; Monocytes # (A) 0.5 k/uL (0-1.0); Monocytes % (A) 7 %; Neutrophils % (A) 83 %; Platelet Count 259 k/uL (150-450); RBC 3.96 m/uL (4.30-5.90); RDW 13.7 % (11.5-15.5); WBC 7.2 k/uL (3.8-10.6)
[2021-04-21 14:22] LABS: MCV 99.2 fL (80.0-100.0)
[2021-04-21 15:10] LABS: Appearance,Urine Clear (Clear); Bilirubin,Urine Negative (Negative); Blood,Urine Negative (Negative); Color,Urine Yellow; Glucose,Urine (UA) Negative (Negative); Hyaline Casts,Urine 8 /lpf (0-2); Ketones,Urine Negative (Negative); Leukocyte Esterase,Urine Negative (Negative); Mucus,Urine Many /hpf; Nitrite,Urine Negative (Negative); PH, Urine 5.5 (5.0-8.0); Protein,Urine 1+ (Negative); RBC,Urine 3 /hpf (0-5); Specific Gravity,Urine 1.032 (1.001-1.035); Squamous Epithelial Cell,Urine <1 /hpf (0-4); WBC,Urine 1 /hpf (0-5)
[2021-04-21 15:11] LABS: Prothrombin Time 10.6 sec (9.0-12.0)
[2021-04-21 15:23] LABS: ALT 14 U/L (4-49); AST 20 U/L (17-59); African American GFR (CKD) >90 (>60 ml/min/1.73 sqM); Albumin 3.2 g/dL (3.5-5.0); Alkaline Phosphatase 77 U/L (38-126); Anion Gap 7 mmol/L; Blood Urea Nitrogen 30 mg/dL (9-20); Calcium 8.4 mg/dL (8.4-10.2); Carbon Dioxide 23 mmol/L (22-30); Chloride 109 mmol/L (98-107); Glucose 122 mg/dL (74-99); Lipase 35 U/L (23-300); Non-African American GFR(CKD) 83 (>60 ml/min/1.73 sqM); Potassium 3.7 mmol/L (3.5-5.1); Sodium 139 mmol/L (137-145); Total Bilirubin 0.3 mg/dL (0.2-1.3); Total Protein 5.9 g/dL (6.3-8.2)
--- NOTE | 2021-04-21 15:24 | XR ---
EXAMINATION TYPE: XR chest 2V DATE OF EXAM: 04/21/2021 COMPARISON: 11/14/2018 HISTORY: 86 years Male. STUDY INDICATION GIVEN: pain . TECHNIQUE: Frontal and lateral chest radiographs. IMPRESSION: Linear lung base opacities again seen, decreased compared to prior, likely reflective of atelectasis and/or scarring, cannot entirely exclude developing infiltrate. No pneumothorax or large effusion. Normal cardiomediastinal silhouette. Atherosclerotic calcifications project in the aortic arch. Right shoulder joint prostheses is again seen. Densities over the left shoulder joint may be reflecti ve of prior procedure or may be external to the patient, correlation with history recommended. No acu te displaced fracture seen.
--- NOTE | 2021-04-21 15:35 | ED ---
General Adult HPI - General Chief complaint: Nausea/Vomiting/Diarrhea Stated complaint: Seizure Time Seen by Provider: 04/21/21 12:50 Source: patient, EMS Mode of arrival: EMS Limitations: no limitations - History of Present Illness Initial comments: 86-year-old male presents to the emergency department from [facility]. It was reported to me that the patient had a seizure. He does take Keppra however EMS was unsure if this was for seizure disorder. Patient is unable to provide any history. I did call and speak with his daughter. She states that the facility called her and stated the patient was having nausea and vomiting. Also had some episodes of diarrhea. She reports that the patient did not have a seizure. Does have a seizure history however she was not told that he had 1. We did call over to the facility and they denied that the patient had a seizure. They admit that he was having an episode of vomiting after he ate his food extremely fast. They also report that he had some diarrhea. Remainder of the HPI is limited. - Related Data Home Medications Medication Instructions Recorded Confirmed Famotidine [Pepcid] 40 mg PO DAILY 01/16/18 04/21/21 Donepezil 23mg 23 mg PO DAILY 03/15/21 04/21/21 amLODIPine [Norvasc] 5 mg PO DAILY 03/15/21 04/21/21 cloNIDine HCL 0.1 mg PO HS 03/15/21 04/21/21 levETIRAcetam [Keppra] 500 mg PO Q12H 03/15/21 04/21/21 Atorvastatin [Lipitor] 20 mg PO DAILY 04/21/21 04/21/21 Allergies Allergy/AdvReac Type Severity Reaction Status Date / Time codeine AdvReac vomiting Verified 04/21/21 15:02 and passed out Review of Systems ROS Statement: Those systems with pertinent positive or pertinent negative responses have been documented in the HPI. ROS Other: All systems not noted in ROS Statement are negative. Past Medical History Past Medical History: Cancer, CVA/TIA, GERD/Reflux, Hyperlipidemia, Hypertension Additional Past Medical History / Comment(s): kidney ca, brain hematoma History of Any Multi-Drug Resistant Organisms: None Reported Past Surgical History: Joint Replacement, Orthopedic Surgery Additional Past Surgical History / Comment(s): LT rotator cuff, BILAT knee replacement, RT kidney SX , bladder stimulator, MULTIPLE sinus SX , RT REVERSE SHOULDER, COLONOSCOPY, BILAT CATARACT SX, TURP, PENILE IMPLANT, RECTOCELE, HEMORRHOID SX, jerome holes in skull for hematoma Past Anesthesia/Blood Transfusion Reactions: No Reported Reaction Past Psychological History: No Psychological Hx Reported Smoking Status: Never smoker Past Alcohol Use History: Daily Past Drug Use History: None Reported - Past Family History Mother Family Medical History: CVA/TIA Father Family Medical History: Cancer Sister(s) Family Medical History: Cancer Son(s) Family Medical History: Cancer Daughter(s) Family Medical History: Cancer Additional Family Medical History / Comment(s): 2 DAUGHTERS WITH CANCER General Exam General appearance: alert, in no apparent distress Head exam: Present: atraumatic, normocephalic, normal inspection Eye exam: Present: normal appearance, PERRL, EOMI. Absent: scleral icterus, conjunctival injection, periorbital swelling ENT exam: Present: normal exam, mucous membranes moist Neck exam: Present: normal inspection. Absent: tenderness, meningismus, lymphadenopathy Respiratory exam: Present: normal lung sounds bilaterally. Absent: respiratory distress, wheezes, rales, rhonchi, stridor Cardiovascular Exam: Present: regular rate, normal rhythm, normal heart sounds. Absent: systolic murmur, diastolic murmur, rubs, gallop, clicks GI/Abdominal exam: Present: soft, normal bowel sounds. Absent: distended, tenderness, guarding, rebound, rigid Extremities exam: Present: normal inspection, full ROM, normal capillary refill. Absent: tenderness, pedal edema, joint swelling, calf tenderness Back exam: Present: normal inspection Neurological exam: Present: alert, CN II-XII intact, other (oriented to self - baseline) Psychiatric exam: Present: normal affect, normal mood Skin exam: Present: warm, dry, intact, normal color. Absent: rash Course Vital Signs 04/21/21 04/21/21 12:50 17:20 Temperature 97.7 F 98.0 F Pulse Rate 67 80 Respiratory 18 18 Rate Blood Pressure 140/66 138/70 O2 Sat by Pulse 97 98 Oximetry EKG Findings - EKG Comments: EKG Findings:: EKG demonstrates sinus rhythm with prolonged NH interval. Rate of 81. QRS 88. QTC of 443. No acute ST segment elevations or depressions Medical Decision Making - Medical Decision Making Arrival patient is placed in room 33. A thorough history and physical exam was performed. IV is established and laboratory studies are conducted. Laboratory studies are reviewed and are within normal limits. Covid not detected. Chest x-ray demonstrates no acute process. Patient has no abdominal tenderness and was without an episode of vomiting for 3 hours in the ED therefore CT was not pursued. Patient will be discharged back to his facility with a Zofran starter pack. Daughter is now at bedside at discharge - given results of the patients bloodwork and imaging. She agrees to the currently treatment plan and will have him return for any new or worsening symptoms. - Lab Data Result diagrams: 04/21/21 14:03 04/21/21 14:48 Lab Results 04/21/21 04/21/21 04/21/21 Range/Units 14:03 14:26 14:26 WBC 7.2 (3.8-10.6) k/uL RBC 3.96 L (4.30-5.90) m/uL Hgb 12.9 L (13.0-17.5) gm/dL Hct 39.3 (39.0-53.0) % MCV 99.2 D (80.0-100.0) fL MCH 32.5 (25.0-35.0) pg MCHC 32.8 (31.0-37.0) g/dL RDW 13.7 (11.5-15.5) % Plt Count 259 (150-450) k/uL MPV 8.6 Neutrophils % 83 % Lymphocytes % 8 % Monocytes % 7 % Eosinophils % 2 % Basophils % 0 % Neutrophils # 6.0 (1.3-7.7) k/uL Lymphocytes # 0.5 L (1.0-4.8) k/uL Monocytes # 0.5 (0-1.0) k/uL Eosinophils # 0.1 (0-0.7) k/uL Basophils # 0.0 (0-0.2) k/uL PT (9.0-12.0) sec INR (<1.2) APTT (22.0-30.0) sec Sodium (137-145) mmol/L Potassium (3.5-5.1) mmol/L Chloride (98-107) mmol/L Carbon Dioxide (22-30) mmol/L Anion Gap mmol/L BUN (9-20) mg/dL Creatinine (0.66-1.25) mg/dL Est GFR (CKD-EPI)AfAm (>60 ml/min/1.73 sqM) Est GFR (CKD-EPI)NonAf (>60 ml/min/1.73 sqM) Glucose (74-99) mg/dL Calcium (8.4-10.2) mg/dL Total Bilirubin (0.2-1.3) mg/dL AST (17-59) U/L ALT (4-49) U/L Alkaline Phosphatase (38-126) U/L Troponin I (0.000-0.034) ng/mL NT-Pro-B Natriuret Pep pg/mL Total Protein (6.3-8.2) g/dL Albumin (3.5-5.0) g/dL Lipase (23-300) U/L Urine Color Yellow Urine Appearance Clear (Clear) Urine pH 5.5 (5.0-8.0) Ur Specific [place] 1.032 (1.001-1.035) Urine Protein 1+ H (Negative) Urine Glucose (UA) Negative (Negative) Urine Ketones Negative (Negative) Urine Blood Negative (Negative) Urine Nitrite Negative (Negative) Urine Bilirubin Negative (Negative) Urine Urobilinogen 2.0 (<2.0) mg/dL Ur Leukocyte Esterase Negative (Negative) Urine RBC 3 (0-5) /hpf Urine WBC 1 (0-5) /hpf Ur Squamous Epith Cells <1 (0-4) /hpf Hyaline Casts 8 H (0-2) /lpf Urine Mucus Many H (None) /hpf Coronavirus (PCR) Not Detected (Not Detectd) 04/21/21 04/21/21 04/21/21 Range/Units 14:48 14:48 14:48 WBC (3.8-10.6) k/uL RBC (4.30-5.90) m/uL Hgb (13.0-17.5) gm/dL Hct (39.0-53.0) % MCV (80.0-100.0) fL MCH (25.0-35.0) pg MCHC (31.0-37.0) g/dL RDW (11.5-15.5) % Plt Count (150-450) k/uL MPV Neutrophils % % Lymphocytes % % Monocytes % % Eosinophils % % Basophils % % Neutrophils # (1.3-7.7) k/uL Lymphocytes # (1.0-4.8) k/uL Monocytes # (0-1.0) k/uL Eosinophils # (0-0.7) k/uL Basophils # (0-0.2) k/uL PT (9.0-12.0) sec INR (<1.2) APTT (22.0-30.0) sec Sodium 139 (137-145) mmol/L Potassium 3.7 (3.5-5.1) mmol/L Chloride 109 H (98-107) mmol/L Carbon Dioxide 23 (22-30) mmol/L Anion Gap 7 mmol/L BUN 30 H (9-20) mg/dL Creatinine 0.72 (0.66-1.25) mg/dL Est GFR (CKD-EPI)AfAm >90 (>60 ml/min/1.73 sqM) Est GFR (CKD-EPI)NonAf 83 (>60 ml/min/1.73 sqM) Glucose 122 H (74-99) mg/dL Calcium 8.4 (8.4-10.2) mg/dL Total Bilirubin 0.3 (0.2-1.3) mg/dL AST 20 (17-59) U/L ALT 14 (4-49) U/L Alkaline Phosphatase 77 (38-126) U/L Troponin I <0.012 (0.000-0.034) ng/mL NT-Pro-B Natriuret Pep 477 pg/mL Total Protein 5.9 L (6.3-8.2) g/dL Albumin 3.2 L (3.5-5.0) g/dL Lipase 35 (23-300) U/L Urine Color Urine Appearance (Clear) Urine pH (5.0-8.0) Ur Specific [place] (1.001-1.035) Urine Protein (Negative) Urine Glucose (UA) (Negative) Urine Ketones (Negative) Urine Blood (Negative) Urine Nitrite (Negative) Urine Bilirubin (Negative) Urine Urobilinogen (<2.0) mg/dL Ur Leukocyte Esterase (Negative) Urine RBC (0-5) /hpf Urine WBC (0-5) /hpf Ur Squamous Epith Cells (0-4) /hpf Hyaline Casts (0-2) /lpf Urine Mucus (None) /hpf Coronavirus (PCR) (Not Detectd) 04/21/21 Range/Units 14:48 WBC (3.8-10.6) k/uL RBC (4.30-5.90) m/uL Hgb (13.0-17.5) gm/dL Hct (39.0-53.0) % MCV (80.0-100.0) fL MCH (25.0-35.0) pg MCHC (31.0-37.0) g/dL RDW (11.5-15.5) % Plt Count (150-450) k/uL MPV Neutrophils % % Lymphocytes % % Monocytes % % Eosinophils % % Basophils % % Neutrophils # (1.3-7.7) k/uL Lymphocytes # (1.0-4.8) k/uL Monocytes # (0-1.0) k/uL Eosinophils # (0-0.7) k/uL Basophils # (0-0.2) k/uL PT 10.6 (9.0-12.0) sec INR 1.0 (<1.2) APTT 23.0 (22.0-30.0) sec Sodium (137-145) mmol/L Potassium (3.5-5.1) mmol/L Chloride (98-107) mmol/L Carbon Dioxide (22-30) mmol/L Anion Gap mmol/L BUN (9-20) mg/dL Creatinine (0.66-1.25) mg/dL Est GFR (CKD-EPI)AfAm (>60 ml/min/1.73 sqM) Est GFR (CKD-EPI)NonAf (>60 ml/min/1.73 sqM) Glucose (74-99) mg/dL Calcium (8.4-10.2) mg/dL Total Bilirubin (0.2-1.3) mg/dL AST (17-59) U/L ALT (4-49) U/L Alkaline Phosphatase (38-126) U/L Troponin I (0.000-0.034) ng/mL NT-Pro-B Natriuret Pep pg/mL Total Protein (6.3-8.2) g/dL Albumin (3.5-5.0) g/dL Lipase (23-300) U/L Urine Color Urine Appearance (Clear) Urine pH (5.0-8.0) Ur Specific [place] (1.001-1.035) Urine Protein (Negative) Urine Glucose (UA) (Negative) Urine Ketones (Negative) Urine Blood (Negative) Urine Nitrite (Negative) Urine Bilirubin (Negative) Urine Urobilinogen (<2.0) mg/dL Ur Leukocyte Esterase (Negative) Urine RBC (0-5) /hpf Urine WBC (0-5) /hpf Ur Squamous Epith Cells (0-4) /hpf Hyaline Casts (0-2) /lpf Urine Mucus (None) /hpf Coronavirus (PCR) (Not Detectd) Disposition Clinical Impression: Nausea & vomiting, Diarrhea Disposition: HOME SELF-CARE Condition: Stable Instructions (If sedation given, give patient instructions): Acute Nausea and Vomiting (ED) Is patient prescribed a controlled substance at d/c from ED?: No Referrals: Arnoldo Coronel MD [Primary Care Provider] - 1-2 days Time of Disposition: 16:04
[2021-04-21] MEDS: ONDANSETRON 4 MG/2 ML VIAL IVP STA (15:58)
[2021-04-21] MEDS: ONDANSETRON 4 MG ODT STARTER PACK 2 TAB BTL PO STA (17:15)
[2021-04-21 17:56] VITALS: BP 138/70; PULSE 80; TEMP 98
== END 2021-04-21 17:20 | disposition home or self-care (01) ==
LOC: EC 12:45
DX: R11.2 Nausea with vomiting, unspecified (principal); R19.7 Diarrhea, unspecified; I10 Essential (primary) hypertension; E78.5 Hyperlipidemia, unspecified; K21.9 Gastro-esophageal reflux disease without esophagitis; Z86.73 Personal history of transient ischemic attack (TIA), and cerebral infarction without residual deficits; Z88.5 Allergy status to narcotic agent; Z20.822 Contact with and (suspected) exposure to COVID-19; Z79.899 Other long term (current) drug therapy
CPT/HCPCS: 36415; 93005; 83880; 80053; 83690; 84484; 85025; 85610; 85730; 81001; 87635; 71046; 99284; 96374; J2405; S0119

== ENCOUNTER 2021-05-17 13:13 | Observation (INO) | payer BC, MEDICARE ==
--- NOTE | 2021-05-17 13:59 | ED ---
General Adult HPI - General Chief complaint: Shortness of Breath Stated complaint: choking Time Seen by Provider: 05/17/21 13:20 Source: patient, EMS, RN notes reviewed, old records reviewed, Caregiver Mode of arrival: EMS Limitations: altered mental status - History of Present Illness Initial comments: This is an 86-year-old male who presents emergency Department after having passed out. Patient was eating a lunch started choking he was choking for about 5 minutes then he passed out his lips turning blue in the turn the patient over onto his belly and started hitting him on the back at which point time he did vomit after about 10 minutes he came back and was at his neurologic baseline. Patient has no complaints but he is a very poor historian. Staff states prior to the choking episode he was acting normal. - Related Data Home Medications Medication Instructions Recorded Confirmed Famotidine [Pepcid] 40 mg PO DAILY@0800 01/16/18 05/17/21 Donepezil 23mg 23 mg PO DAILY@0800 03/15/21 05/17/21 cloNIDine HCL 0.1 mg PO HS@199903/15/21 05/17/21 levETIRAcetam [Keppra] 500 mg PO BID@0800,199903/15/21 05/17/21 Atorvastatin [Lipitor] 20 mg PO HS@199904/21/21 05/17/21 Cyanocobalamin [Vitamin B-12 2,000 mcg SQ Q30D 05/17/21 05/17/21 Injection] Infed 50mg/Ml 100 mg IV DIRECTED 05/17/21 05/17/21 amLODIPine [Norvasc] 10 mg PO DAILY@0800 05/17/21 05/17/21 Allergies Allergy/AdvReac Type Severity Reaction Status Date / Time codeine AdvReac vomiting Verified 05/17/21 16:31 and passed out Review of Systems ROS Statement: Those systems with pertinent positive or pertinent negative responses have been documented in the HPI. ROS Other: All systems not noted in ROS Statement are negative. Past Medical History Past Medical History: Cancer, CVA/TIA, GERD/Reflux, Hyperlipidemia, Hypertension Additional Past Medical History / Comment(s): kidney ca, brain hematoma History of Any Multi-Drug Resistant Organisms: None Reported Past Surgical History: Joint Replacement, Orthopedic Surgery Additional Past Surgical History / Comment(s): LT rotator cuff, BILAT knee replacement, RT kidney SX , bladder stimulator, MULTIPLE sinus SX , RT REVERSE SHOULDER, COLONOSCOPY, BILAT CATARACT SX, TURP, PENILE IMPLANT, RECTOCELE, HEMORRHOID SX, jerome holes in skull for hematoma Past Anesthesia/Blood Transfusion Reactions: No Reported Reaction Past Psychological History: No Psychological Hx Reported Smoking Status: Never smoker Past Alcohol Use History: Daily Past Drug Use History: None Reported - Past Family History Mother Family Medical History: CVA/TIA Father Family Medical History: Cancer Sister(s) Family Medical History: Cancer Son(s) Family Medical History: Cancer Daughter(s) Family Medical History: Cancer Additional Family Medical History / Comment(s): 2 DAUGHTERS WITH CANCER General Exam - General Exam Comments Initial Comments: GENERAL: Patient is well-developed and well-nourished. Patient is nontoxic and well- hydrated and is in no acute distress. ENT: Neck is soft and supple. No significant lymphadenopathy is noted. Oropharynx is clear. Moist mucous membranes. Neck has full range of motion without eliciting any pain. EYES: The sclera were anicteric and conjunctiva were pink and moist. Extraocular movements were intact and pupils were equal round and reactive to light. Eyelids were unremarkable. PULMONARY: Unlabored respirations. Good breath sounds bilaterally. Rhonchi bilaterally CARDIOVASCULAR: There is a regular rate and rhythm without any murmurs gallops or rubs. ABDOMEN: Soft and nontender with normal bowel sounds. SKIN: Patient has abrasions to the left side of his face. NEUROLOGIC: Patient is alert and oriented x3. Cranial nerves II through XII are grossly intact. Motor and sensory are also intact. Normal speech, volume and content. Symmetrical smile. MUSCULOSKELETAL: Normal extremities with adequate strength and full range of motion. LYMPHATICS: No significant lymphadenopathy is noted PSYCHIATRIC: Normal psychiatric evaluation. Limitations: no limitations Course Vital Signs 05/17/21 13:22 Temperature 98.8 F Pulse Rate 76 Respiratory 22 Rate Blood Pressure 137/78 O2 Sat by Pulse 99 Oximetry Medical Decision Making - Medical Decision Making EKG shows atrial fibrillation with a rate of 78 bpm QRS is 94 Q-T intervals 416 QTC is 474. Patient's EKG shows no ST segment elevation. Chest x-ray shows no acute abnormality. Patient needed to be put on 2 L of oxygen while in the ER so patient will be admitted and observed. I spoke with [facility] agreed to admit the patient admitted the patient I wrote admitting orders. - Lab Data Result diagrams: 05/17/21 14:50 05/17/21 14:50 Lab Results 05/17/21 05/17/21 05/17/21 Range/Units 14:50 14:50 14:50 WBC 11.8 H (3.8-10.6) k/uL RBC 4.28 L (4.30-5.90) m/uL Hgb 13.5 (13.0-17.5) gm/dL Hct 42.5 (39.0-53.0) % MCV 99.3 (80.0-100.0) fL MCH 31.7 (25.0-35.0) pg MCHC 31.9 (31.0-37.0) g/dL RDW 14.5 (11.5-15.5) % Plt Count 288 (150-450) k/uL MPV 8.1 Neutrophils % 81 % Lymphocytes % 11 % Monocytes % 5 % Eosinophils % 2 % Basophils % 0 % Neutrophils # 9.6 H (1.3-7.7) k/uL Lymphocytes # 1.3 (1.0-4.8) k/uL Monocytes # 0.6 (0-1.0) k/uL Eosinophils # 0.2 (0-0.7) k/uL Basophils # 0.0 (0-0.2) k/uL PT 10.9 (9.0-12.0) sec INR 1.0 (<1.2) APTT 19.3 L (22.0-30.0) sec Sodium 142 (137-145) mmol/L Potassium 4.5 (3.5-5.1) mmol/L Chloride 110 H (98-107) mmol/L Carbon Dioxide 24 (22-30) mmol/L Anion Gap 8 mmol/L BUN 23 H (9-20) mg/dL Creatinine 0.71 (0.66-1.25) mg/dL Est GFR (CKD-EPI)AfAm >90 (>60 ml/min/1.73 sqM) Est GFR (CKD-EPI)NonAf 84 (>60 ml/min/1.73 sqM) Glucose 145 H (74-99) mg/dL Plasma Lactic Acid Henry (0.7-2.0) mmol/L Calcium 9.3 (8.4-10.2) mg/dL Magnesium 2.2 (1.6-2.3) mg/dL Total Bilirubin 1.0 (0.2-1.3) mg/dL AST 26 (17-59) U/L ALT 14 (4-49) U/L Alkaline Phosphatase 80 (38-126) U/L Troponin I (0.000-0.034) ng/mL Total Protein 7.1 (6.3-8.2) g/dL Albumin 3.8 (3.5-5.0) g/dL 05/17/21 05/17/21 Range/Units 14:50 14:50 WBC (3.8-10.6) k/uL RBC (4.30-5.90) m/uL Hgb (13.0-17.5) gm/dL Hct (39.0-53.0) % MCV (80.0-100.0) fL MCH (25.0-35.0) pg MCHC (31.0-37.0) g/dL RDW (11.5-15.5) % Plt Count (150-450) k/uL MPV Neutrophils % % Lymphocytes % % Monocytes % % Eosinophils % % Basophils % % Neutrophils # (1.3-7.7) k/uL Lymphocytes # (1.0-4.8) k/uL Monocytes # (0-1.0) k/uL Eosinophils # (0-0.7) k/uL Basophils # (0-0.2) k/uL PT (9.0-12.0) sec INR (<1.2) APTT (22.0-30.0) sec Sodium (137-145) mmol/L Potassium (3.5-5.1) mmol/L Chloride (98-107) mmol/L Carbon Dioxide (22-30) mmol/L Anion Gap mmol/L BUN (9-20) mg/dL Creatinine (0.66-1.25) mg/dL Est GFR (CKD-EPI)AfAm (>60 ml/min/1.73 sqM) Est GFR (CKD-EPI)NonAf (>60 ml/min/1.73 sqM) Glucose (74-99) mg/dL Plasma Lactic Acid [place] 2.0 (0.7-2.0) mmol/L Calcium (8.4-10.2) mg/dL Magnesium (1.6-2.3) mg/dL Total Bilirubin (0.2-1.3) mg/dL AST (17-59) U/L ALT (4-49) U/L Alkaline Phosphatase (38-126) U/L Troponin I <0.012 (0.000-0.034) ng/mL Total Protein (6.3-8.2) g/dL Albumin (3.5-5.0) g/dL Disposition Clinical Impression: Syncope and collapse, Choking Disposition: ADMITTED IP TO THIS HOSP Referrals: Arnoldo Coronel MD [Primary Care Provider] - 1-2 days Time of Disposition: 17:09
--- NOTE | 2021-05-17 14:23 | XR ---
EXAMINATION TYPE: XR chest 2V DATE OF EXAM: 05/17/2021 COMPARISON: 04/21/2021 TECHNIQUE: PA and lateral views submitted. HISTORY: Difficulty breathing FINDINGS: The lungs are clear and there is no pneumothorax, pleural effusion, or focal pneumonia. Postsurgica l changes bilateral shoulder with diffuse osteopenia. Heart size normal. Subsegmental changes left karson ng base. Hypertrophic and degenerative changes spine. Hyperinflation. No overt failure. IMPRESSION: 1. No acute process. Correlate for COPD. 2. Left basilar atelectasis or early infiltrate.
[2021-05-17 14:53] LABS: Basophils % (A) 0 %; Eosinophils # (A) 0.2 k/uL (0-0.7); Eosinophils % (A) 2 %; HCT 42.5 % (39.0-53.0); HGB 13.5 gm/dL (13.0-17.5); Lymphocytes # (A) 1.3 k/uL (1.0-4.8); Lymphocytes % (A) 11 %; MCH 31.7 pg (25.0-35.0); MCHC 31.9 g/dL (31.0-37.0); MCV 99.3 fL (80.0-100.0); Mean Platelet Volume 8.1; Monocytes # (A) 0.6 k/uL (0-1.0); Monocytes % (A) 5 %; Neutrophils # (A) 9.6 k/uL (1.3-7.7); Neutrophils % (A) 81 %; Platelet Count 288 k/uL (150-450); RBC 4.28 m/uL (4.30-5.90); RDW 14.5 % (11.5-15.5); WBC 11.8 k/uL (3.8-10.6)
[2021-05-17 15:03] LABS: ALT 14 U/L (4-49); AST 26 U/L (17-59); African American GFR (CKD) >90 (>60 ml/min/1.73 sqM); Albumin 3.8 g/dL (3.5-5.0); Alkaline Phosphatase 80 U/L (38-126); Anion Gap 8 mmol/L; Blood Urea Nitrogen 23 mg/dL (9-20); Calcium 9.3 mg/dL (8.4-10.2); Carbon Dioxide 24 mmol/L (22-30); Chloride 110 mmol/L (98-107); Glucose 145 mg/dL (74-99); Magnesium 2.2 mg/dL (1.6-2.3); Non-African American GFR(CKD) 84 (>60 ml/min/1.73 sqM); Potassium 4.5 mmol/L (3.5-5.1); Sodium 142 mmol/L (137-145); Total Protein 7.1 g/dL (6.3-8.2)
[2021-05-17 15:11] LABS: Prothrombin Time 10.9 sec (9.0-12.0)
[2021-05-17 15:14] LABS: Partial Thromboplastin Time 19.3 sec (22.0-30.0)
--- NOTE | 2021-05-17 18:00 | P.HPIM ---
History of Present Illness H&P Date: 05/17/21 Chief Complaint: unresponsive episode 86 year old man with history of seizure disorder, dementia, HTN, HLD presented after episode of choking and unresponsiveness. Patient himself does not remember the event, however, from my understanding from ER provider signout and his daughter was at bedside, patient was eating his meal when suddenly he developed an episode of choking, after 10 to the Heimlich maneuver for 5 minutes, they were unsuccessful, and he became unresponsive. Upon being guided to the floor, patient was placed in a prone position and the care staff contin uously beat on his back to try to get him to eject the food. After doing this for about 10 minutes, patient was finally able to get the food out, followed by an episode of emesis, nonbloody. He was noted to be cyanotic during the 10 minutes of downtime, and it took approximately 10 minutes before he regained neurological status. EMS was called, patient was transferred to the emergency room for further evaluation. At the time of my exam, patient denied fevers, chills, nausea, vomiting, chest pain, palpitations, abdominal pain, diarrhea, constipation, numbness/weakness. Patient did report pain in the ribs. In the ER, patient is afebrile, 137/78, heart rate is 76, 99% on 2 L nasal cannula. CBC shows mild leukocytosis, otherwise unremarkable. Chemistries are unremarkable. LFTs are unremarkable. Troponin was negative. Chest x-ray demonstrated hyperinflation, but definite acute process, however, there is a possibility of an early infiltrate forming in the left lower lobe. EKG showed atrial fibrillation with a competing junctional pacemaker, heart rate 78. Review of Systems All Systems reviewed and pertinent positives and negatives noted in HPI, all other symptoms are negative Past Medical History Past Medical History: Cancer, CVA/TIA, GERD/Reflux, Hyperlipidemia, Hypertension Additional Past Medical History / Comment(s): kidney ca, brain hematoma History of Any Multi-Drug Resistant Organisms: None Reported Past Surgical History: Joint Replacement, Orthopedic Surgery Additional Past Surgical History / Comment(s): LT rotator cuff, BILAT knee replacement, RT kidney SX , bladder stimulator, MULTIPLE sinus SX , RT REVERSE SHOULDER, COLONOSCOPY, BILAT CATARACT SX, TURP, PENILE IMPLANT, RECTOCELE, HEM ORRHOID SX, jerome holes in skull for hematoma Past Anesthesia/Blood Transfusion Reactions: No Reported Reaction Past Psychological History: No Psychological Hx Reported Smoking Status: Never smoker Past Alcohol Use History: Daily Past Drug Use History: None Reported - Past Family History Mother Family Medical History: CVA/TIA Father Family Medical History: Cancer Sister(s) Family Medical History: Cancer Son(s) Family Medical History: Cancer Daughter(s) Family Medical History: Cancer Additional Family Medical History / Comment(s): 2 DAUGHTERS WITH CANCER Medications and Allergies Home Medications Medication Instructions Recorded Confirmed Type Famotidine [Pepcid] 40 mg PO DAILY@0800 01/16/18 05/17/21 History Donepezil 23mg 23 mg PO DAILY@0800 03/15/21 05/17/21 History cloNIDine HCL 0.1 mg PO HS@199903/15/21 05/17/21 History levETIRAcetam [Keppra] 500 mg PO BID@0800,199903/15/21 05/17/21 History Atorvastatin [Lipitor] 20 mg PO HS@199904/21/21 05/17/21 History Cyanocobalamin [Vitamin B-12 2,000 mcg SQ Q30D 05/17/21 05/17/21 History Injection] Infed 50mg/Ml 100 mg IV DIRECTED 05/17/21 05/17/21 History amLODIPine [Norvasc] 10 mg PO DAILY@0800 05/17/21 05/17/21 History Allergies Allergy/AdvReac Type Severity Reaction Status Date / Time codeine AdvReac vomiting Verified 05/17/21 16:31 and passed out Physical Exam Osteopathic Statement: *. No significant issues noted on an osteopathic struc tural exam other than those noted in the History and Physical/Consult. Vitals: Vital Signs Temp Pulse Resp BP Pulse Ox 05/17/21 17:09 98.7 F 80 16 137/74 96 05/17/21 13:22 98.8 F 76 22 137/78 99 Intake and Output 05/17/21 05/17/21 05/17/21 06:59 14:59 22:59 Other: Weight 77.111 kg Gen: awake, alert HEENT: normocephalic, atraumatic, good hearing acuity, moist mucous membranes Resp: good air exchange, breathing comfortably with no accessory muscle use CVS: good distal perfusion x 4, GI: soft, NTTP, ND : no SPT, no CVAT, maciel catheter not present MSK: no pitting edema, no clubbing, pain to palpation of the left ribs, abrasions of the left cheek with surrounding swelling Neuro: non-focal, moving all extremities Psych: cooperative, euthymic mood Results CBC & Chem 7: 05/17/21 14:50 05/17/21 14:50 Labs: Abnormal Lab Results - Last 24 Hours (Table) 05/17/21 05/17/21 05/17/21 Range/Units 14:50 14:50 14:50 WBC 11.8 H (3.8-10.6) k/uL RBC 4.28 L (4.30-5.90) m/uL Neutrophils # 9.6 H (1.3-7.7) k/uL APTT 19.3 L (22.0-30.0) sec Chloride 110 H (98-107) mmol/L BUN 23 H (9-20) mg/dL Glucose 145 H (74-99) mg/dL Assessment and Plan Assessment: Acute hypoxemic respiratory failure Possible aspiration pneumonia -Oxygen as needed -Bedside swallow study -Repeat x-ray in the morning -Rib films to rule out fracture in the morning -Repeat labs in the morning Atrial fibrillation, permanent versus persistent -Has been present since EKG done on 04/21/2021 -Outpatient electrophysiology referral for consideration of pulmonary vein ablation -No AV dalia blockade needed at this time -Consideration of blood thinner Seizure disorder Hypertension Hyperlipidemia Dementia -Home medications reviewed and reconciled Patient is a no code
[2021-05-17] MEDS ORDERED: cloNIDine HCL 0.1 MG TAB PO SCH (20:00)
[2021-05-17] MEDS ORDERED: ATORVASTATIN 20 MG TAB PO SCH (20:00)
[2021-05-17] MEDS: levETIRAcetam 500 MG TAB PO SCH (23:18)
[2021-05-18] MEDS ORDERED: FAMOTIDINE 20 MG TAB PO SCH (08:00)
[2021-05-18] MEDS ORDERED: amLODIPine 10 MG TAB PO SCH (08:00)
[2021-05-18] MEDS ORDERED: DONEPEZIL 10 MG TAB PO SCH (08:00)
[2021-05-18 08:20] VITALS: BP 135/76; PULSE 62; RESP 16; TEMP 98.1
[2021-05-18 10:31] LABS: Basophils # (A) 0.05 X 10*3/uL (0.00-0.10); Basophils % (A) 0.4 %; Eosinophils # (A) 0.07 X 10*3/uL (0.04-0.35); Eosinophils % (A) 0.6 %; HCT 36.1 % (39.6-50.0); HGB 11.7 g/dL (13.0-17.0); Immature Grans, Automated 0.4 %; Lymphocytes # (A) 1.19 X 10*3/uL (0.90-5.00); Lymphocytes % (A) 10.4 %; MCH 30.4 pg (27.0-32.0); MCHC 32.4 g/dL (32.0-37.0); MCV 93.8 fL (80.0-97.0); Mean Platelet Volume 10.4 fL (9.5-12.2); Monocytes % (A) 11.3 %; NRBC Per 100 WBC 0 /100 WBCS (0.0-0.0); Neutrophils # (A) 8.81 X 10*3/uL (1.80-7.70); Neutrophils % (A) 76.9 %; Platelet Count 262 X 10*3/uL (140-440); RBC 3.85 X 10*6/uL (4.40-5.60); RDW 14.6 % (11.5-14.5); WBC 11.47 X 10*3/uL (4.50-10.00)
[2021-05-18] MEDS: levETIRAcetam 500 MG TAB PO SCH (10:35)
--- NOTE | 2021-05-18 12:28 | FL ---
EXAMINATION TYPE: FL barium swallow w video DATE OF EXAM: 05/18/2021 MODIFIED SWALLOW / DEGLUTITION STUDY CLINICAL HISTORY: Dysphagia, rule out aspiration. Significant choking episode requiring Heimlich leobardo uver recently. TECHNIQUE: Deglutition study is performed utilizing thin liquid barium, honey and nectar thick liqui d barium, barium thick applesauce, and barium coated cracker. 2.25 minutes of fluoro time and 21 shruti ges obtained. COMPARISON: None. FINDINGS: The oral and pharyngeal phases show delay in initiation with all modalities tested. Satisfa ctory propagation is present. Satisfactory mastication is seen with solid modalities tested. There i s no evidence of penetration or aspiration with any modality tested. No significant pharyngeal resid ue was appreciated. Incidental reversal of normal cervical curvature centered mid to lower cervical s pine with moderate to severe disc space narrowing C4-C5 and moderate disc space narrowing C5-C6 level s. IMPRESSION: No penetration or aspiration observed. Please refer to speech therapist notes for furthe r details if necessary.
--- NOTE | 2021-05-18 13:18 | P.DS ---
Providers Date of admission: 05/17/21 17:30 Expected date of discharge: 05/18/21 Attending physician: Penelope Márquez MD Primary care physician: Arnoldo Walker [facility] Course: Acute hypoxemic respiratory failure Possible aspiration pneumonia -Admitted to observation following an episode of choking and unresponsiveness. Monitored overnight due to requiring oxygen. Pt was successfully weaned off of O2 by the following day and had no further complaints of pain in ribs or dyspnea. ST evaluated patient given his choking episode, and he underwent video swallow which did not show signs of penetration or aspiration. CXR from admission was negative for aspiration pneumonia or retained foreign material. Pt was discharged back to [facility] with no medication changes, but with recommendations for dysphagia III diet with strict 1:1 supervision. Atrial fibrillation, permanent versus persistent -Has been present since EKG done on 04/21/2021 -Outpatient electrophysiology referral for consideration of pulmonary vein ablation -No AV dalia blockade needed at this time -Pt placed on ASA, not blood thinner, due to high fall risk. Seizure disorder Hypertension Hyperlipidemia Dementia -Home medications reviewed and reconciled, changes noted above I spent 40 minutes coordinating this complex discharge. Assessment: Gen: awake, alert HEENT: normocephalic, atraumatic, good hearing acuity, moist mucous membranes Resp: good air exchange, breathing comfortably with no accessory muscle use CVS: good distal perfusion x 4, GI: soft, NTTP, ND : no SPT, no CVAT, maciel catheter not present MSK: no pitting edema, no clubbing, pain to palpation of the left ribs, abrasions of the left cheek with surrounding swelling Neuro: non-focal, moving all extremities Psych: cooperative, euthymic mood Patient Condition at Discharge: Good Plan - Discharge Summary Discharge Rx Participant: No New Discharge Prescriptions: Continue Famotidine [Pepcid] 40 mg PO DAILY@0800 cloNIDine HCL 0.1 mg PO HS@1999 Infed 50mg/Ml 100 mg IV DIRECTED levETIRAcetam [Keppra] 500 mg PO BID@0800,1999 Donepezil 23mg 23 mg PO DAILY@0800 Atorvastatin [Lipitor] 20 mg PO HS@2000 amLODIPine [Norvasc] 10 mg PO DAILY@0800 Cyanocobalamin [Vitamin B-12 Injection] 2,000 mcg SQ Q30D Discharge Medication List Famotidine [Pepcid] 40 mg PO DAILY@0800 01/16/18 [History] Donepezil 23mg 23 mg PO DAILY@79903/15/21 [History] cloNIDine HCL 0.1 mg PO HS@199903/15/21 [History] levETIRAcetam [Keppra] 500 mg PO BID@799,199903/15/21 [History] Atorvastatin [Lipitor] 20 mg PO HS@199904/21/21 [History] Cyanocobalamin [Vitamin B-12 Injection] 2,000 mcg SQ Q30D 05/17/21 [History] Infed 50mg/Ml 100 mg IV DIRECTED 05/17/21 [History] amLODIPine [Norvasc] 10 mg PO DAILY@0800 05/17/21 [History] Follow up Appointment(s)/Referral(s): Arnoldo Coronel MD [Primary Care Provider] - 05/20/21 11:45 am Activity/Diet/Wound Care/Special Instructions: Recommended initiating dysphagia level 3 chopped diet/ground meats with STRICT 1:1 supervision. Further recommended decreasing environmental distractions, upright positioning with all PO intake and small bites/sips. MBS study to be conducted to further evaluate the OP swallow. Please see mbs study re: further results/recommendations. Discharge Disposition: DC/TRNS INTERMEDIATE CARE FAC
[2021-05-18 14:45] LABS: African American GFR (CKD) 97.3 (60.0-200.0); Anion Gap 11.4 mmol/L (10.00-18.00); BUN/Creat Ratio 28.57 Ratio (12.00-20.00); Blood Urea Nitrogen 20.2 mg/dL (9.0-27.0); Non-African American GFR(CKD) 83.9 (60.0-200.0)
[2021-05-18 14:46] LABS: Magnesium 2.2 mg/dL (1.5-2.4)
--- NOTE | 2021-05-18 16:47 | XR ---
Chest x-ray with left RIBS HISTORY: Pain, aspiration pneumonia Frontal view the chest and 4 views of left ribs submitted and correlated prior chest x-ray 05/17/2021 There is no evident pneumothorax or pleural effusion. Bone mineralization is reduced which could limi t evaluation. Cardiac mediastinal silhouette is stable. Rib fractures are noted at approximately the eighth rib anterolaterally and possibly the sixth rib, seventh rib. The aorta is dense. Postop change noted the right shoulder. IMPRESSION: At least one rib fracture is identified with certainty as described, bone scan could be p erformed to assess for occult fracture as indicated.
== END 2021-05-18 15:07 ==
LOC: EC 13:13 → 6NMEDSUR 17:30 → 3SCARD 05-18 01:20
PROVIDERS: ADMIT Internal Medicine; ATTEND Internal Medicine
DX: J96.01 Acute respiratory failure with hypoxia (principal); T17.920A Food in respiratory tract, part unspecified causing asphyxiation, initial encounter; I48.91 Unspecified atrial fibrillation; Z91.81 History of falling; G40.909 Epilepsy, unspecified, not intractable, without status epilepticus; I10 Essential (primary) hypertension; E78.5 Hyperlipidemia, unspecified; F03.90 Unspecified dementia, unspecified severity, without behavioral disturbance, psychotic disturbance, mood disturbance, and anxiety; S00.81XA Abrasion of other part of head, initial encounter; D72.829 Elevated white blood cell count, unspecified; K21.9 Gastro-esophageal reflux disease without esophagitis; R41.82 Altered mental status, unspecified; Z20.822 Contact with and (suspected) exposure to COVID-19; Z79.899 Other long term (current) drug therapy; Z88.5 Allergy status to narcotic agent; Z86.73 Personal history of transient ischemic attack (TIA), and cerebral infarction without residual deficits; Z85.528 Personal history of other malignant neoplasm of kidney; Z96.653 Presence of artificial knee joint, bilateral; Z66 Do not resuscitate; Z82.3 Family history of stroke; Z80.9 Family history of malignant neoplasm, unspecified
CPT/HCPCS: 99285; 36415; 93005; 92610; 92611; 80053; 80048; 83605; 83735 ×2; 84484; 85025 ×2; 85610; 85730; 87040; 87635; 71101; 74230; 71046; G0378 ×3

== ENCOUNTER 2021-10-28 13:05 | Inpatient (IN) | payer MEDICARE ==
[2021-10-28] MEDS ORDERED: SODIUM CHLORIDE 0.9% 500 ML 500 ML IV STA (13:55)
--- NOTE | 2021-10-28 14:00 | ED ---
General Adult HPI - General Chief complaint: Weakness Stated complaint: Fall/Weakness/Dizziness Time Seen by Provider: 10/28/21 13:35 Source: patient, family, RN notes reviewed, old records reviewed Mode of arrival: wheelchair Limitations: no limitations - History of Present Illness Initial comments: This is an 86-year-old male who presents to the emergency department with her daughter. Patient fell twice since last evening they were unwitnessed falls. Patient was about to fall third time when staff and daughter caught him. Patient himself has severe dementia and has had 2 subdurals in the past that required bur holes. Patient is unable to give any history the history comes from the daughter completely. Daughter states lately he has been more unstable and yesterday he was urinating on the floor which is never had before she has also noted that he started walking on his toes since yesterday which is also very unusual. Daughter states she doesn't notice any injury to the patient but she is unsure whether he hit his head or neck. Daughter states he has not been sick lately with the fever chills up until last night he was acting pretty much at his baseline. Daughter states she sees him nearly every day. - Related Data Home Medications Medication Instructions Recorded Confirmed Famotidine [Pepcid] 40 mg PO DAILY@0800 01/16/18 05/17/21 Donepezil 23mg 23 mg PO DAILY@0800 03/15/21 05/17/21 cloNIDine HCL 0.1 mg PO HS@199903/15/21 05/17/21 levETIRAcetam [Keppra] 500 mg PO BID@03/15/21 05/17/21 Atorvastatin [Lipitor] 20 mg PO HS@199904/21/21 05/17/21 Cyanocobalamin [Vitamin B-12 2,000 mcg SQ Q30D 05/17/21 05/17/21 Injection] Infed 50mg/Ml 100 mg IV DIRECTED 05/17/21 05/17/21 amLODIPine [Norvasc] 10 mg PO DAILY@0800 05/17/21 05/17/21 Previous Rx's Medication Instructions Recorded Aspirin 81 mg PO DAILY #30 tab 05/18/21 Allergies Allergy/AdvReac Type Severity Reaction Status Date / Time codeine AdvReac vomiting Verified 10/28/21 13:20 and passed out Review of Systems ROS Statement: Those systems with pertinent positive or pertinent negative responses have been documented in the HPI. ROS Other: All systems not noted in ROS Statement are negative. Past Medical History Past Medical History: Cancer, CVA/TIA, GERD/Reflux, Hyperlipidemia, Hypertension Additional Past Medical History / Comment(s): kidney ca, brain hematoma History of Any Multi-Drug Resistant Organisms: None Reported Past Surgical History: Joint Replacement, Orthopedic Surgery Additional Past Surgical History / Comment(s): LT rotator cuff, BILAT knee replacement, RT kidney SX , bladder stimulator, MULTIPLE sinus SX , RT REVERSE SHOULDER, COLONOSCOPY, BILAT CATARACT SX, TURP, PENILE IMPLANT, RECTOCELE, HEMORRHOID SX, jerome holes in skull for hematoma Past Anesthesia/Blood Transfusion Reactions: No Reported Reaction Past Psychological History: No Psychological Hx Reported Smoking Status: Unknown if ever smoked Past Alcohol Use History: Daily Past Drug Use History: None Reported - Past Family History Mother Family Medical History: CVA/TIA Father Family Medical History: Cancer Sister(s) Family Medical History: Cancer Son(s) Family Medical History: Cancer Daughter(s) Family Medical History: Cancer Additional Family Medical History / Comment(s): 2 DAUGHTERS WITH CANCER General Exam - General Exam Comments Initial Comments: GENERAL: Patient is well-developed and well-nourished. Patient is nontoxic and well- hydrated and is in no acute distress. ENT: Neck is soft and supple. No significant lymphadenopathy is noted. Oropharynx is clear. Moist mucous membranes. Neck has full range of motion without eliciting any pain. EYES: The sclera were anicteric and conjunctiva were pink and moist. Extraocular movements were intact and pupils were equal round and reactive to light. Eyelids were unremarkable. PULMONARY: Unlabored respirations. Good breath sounds bilaterally. No audible rales rhonchi or wheezing was noted. CARDIOVASCULAR: There is a regular rate and rhythm without any murmurs gallops or rubs. ABDOMEN: Soft and nontender with normal bowel sounds. No palpable organomegaly was noted. There is no palpable pulsatile mass. SKIN: Skin is clear with no lesions or rashes and otherwise unremarkable. NEUROLOGIC: Patient is alert and oriented 1. Cranial nerves II through XII are grossly intact. Motor and sensory are also intact. Normal speech, volume and content. Symmetrical smile. MUSCULOSKELETAL: Normal extremities with adequate strength and full range of motion. No lower extremity swelling or edema. No calf tenderness. LYMPHATICS: No significant lymphadenopathy is noted PSYCHIATRIC: Normal psychiatric evaluation. Limitations: no limitations Course Vital Signs 10/28/21 10/28/21 13:20 16:25 Temperature 98.3 F Pulse Rate 76 64 Respiratory 16 18 Rate Blood Pressure 108/71 151/87 O2 Sat by Pulse 95 96 Oximetry Medical Decision Making - Medical Decision Making EKG shows atrial fibrillation at 65 bpm QRS is under QT intervals 4:30 QTC is 442. Patient's EKG shows no ST segment elevation or depression CT showed of the brain shows no acute abnormality. CT of the C-spine shows a type II dens fracture. I spoke with Dr. Neville he stated the patient needs to be placed in a c-collar and he will be happy to be consulted. I spoke with opposition agreed to admit patient to the patient I wrote admitting orders. - Lab Data Result diagrams: 10/28/21 14:11 10/28/21 14:11 Lab Results 10/28/21 10/28/21 10/28/21 Range/Units 14:11 14:11 14:11 WBC 10.7 H (3.8-10.6) k/uL RBC 4.03 L (4.30-5.90) m/uL Hgb 13.1 (13.0-17.5) gm/dL Hct 39.3 (39.0-53.0) % MCV 97.5 (80.0-100.0) fL MCH 32.4 (25.0-35.0) pg MCHC 33.2 (31.0-37.0) g/dL RDW 13.5 (11.5-15.5) % Plt Count 271 (150-450) k/uL MPV 8.1 Neutrophils % 72 % Lymphocytes % 12 % Monocytes % 11 % Eosinophils % 3 % Basophils % 0 % Neutrophils # 7.7 (1.3-7.7) k/uL Lymphocytes # 1.3 (1.0-4.8) k/uL Monocytes # 1.2 H (0-1.0) k/uL Eosinophils # 0.3 (0-0.7) k/uL Basophils # 0.0 (0-0.2) k/uL PT 10.5 (9.0-12.0) sec INR 1.0 (<1.2) APTT 23.2 (22.0-30.0) sec Sodium 136 L (137-145) mmol/L Potassium 4.0 (3.5-5.1) mmol/L Chloride 106 (98-107) mmol/L Carbon Dioxide 23 (22-30) mmol/L Anion Gap 7 mmol/L BUN 18 (9-20) mg/dL Creatinine 0.85 (0.66-1.25) mg/dL Est GFR (CKD-EPI)AfAm >90 (>60 ml/min/1.73 sqM) Est GFR (CKD-EPI)NonAf 78 (>60 ml/min/1.73 sqM) Glucose 107 H (74-99) mg/dL Plasma Lactic Acid Henry (0.7-2.0) mmol/L Calcium 8.7 (8.4-10.2) mg/dL Total Bilirubin 0.3 (0.2-1.3) mg/dL AST 19 (17-59) U/L ALT 11 (4-49) U/L Alkaline Phosphatase 77 (38-126) U/L Troponin I (0.000-0.034) ng/mL Total Protein 5.9 L (6.3-8.2) g/dL Albumin 3.3 L (3.5-5.0) g/dL Urine Color Urine Appearance (Clear) Urine pH (5.0-8.0) Ur Specific [place] (1.001-1.035) Urine Protein (Negative) Urine Glucose (UA) (Negative) Urine Ketones (Negative) Urine Blood (Negative) Urine Nitrite (Negative) Urine Bilirubin (Negative) Urine Urobilinogen (<2.0) mg/dL Ur Leukocyte Esterase (Negative) 10/28/21 10/28/21 10/28/21 Range/Units 14:11 14:11 16:20 WBC (3.8-10.6) k/uL RBC (4.30-5.90) m/uL Hgb (13.0-17.5) gm/dL Hct (39.0-53.0) % MCV (80.0-100.0) fL MCH (25.0-35.0) pg MCHC (31.0-37.0) g/dL RDW (11.5-15.5) % Plt Count (150-450) k/uL MPV Neutrophils % % Lymphocytes % % Monocytes % % Eosinophils % % Basophils % % Neutrophils # (1.3-7.7) k/uL Lymphocytes # (1.0-4.8) k/uL Monocytes # (0-1.0) k/uL Eosinophils # (0-0.7) k/uL Basophils # (0-0.2) k/uL PT (9.0-12.0) sec INR (<1.2) APTT (22.0-30.0) sec Sodium (137-145) mmol/L Potassium (3.5-5.1) mmol/L Chloride (98-107) mmol/L Carbon Dioxide (22-30) mmol/L Anion Gap mmol/L BUN (9-20) mg/dL Creatinine (0.66-1.25) mg/dL Est GFR (CKD-EPI)AfAm (>60 ml/min/1.73 sqM) Est GFR (CKD-EPI)NonAf (>60 ml/min/1.73 sqM) Glucose (74-99) mg/dL Plasma Lactic Acid Henry 1.7 (0.7-2.0) mmol/L Calcium (8.4-10.2) mg/dL Total Bilirubin (0.2-1.3) mg/dL AST (17-59) U/L ALT (4-49) U/L Alkaline Phosphatase (38-126) U/L Troponin I 0.015 (0.000-0.034) ng/mL Total Protein (6.3-8.2) g/dL Albumin (3.5-5.0) g/dL Urine Color Yellow Urine Appearance Clear (Clear) Urine pH 6.0 (5.0-8.0) Ur Specific [place] 1.021 (1.001-1.035) Urine Protein Trace H (Negative) Urine Glucose (UA) Negative (Negative) Urine Ketones Negative (Negative) Urine Blood Negative (Negative) Urine Nitrite Negative (Negative) Urine Bilirubin Negative (Negative) Urine Urobilinogen 3.0 (<2.0) mg/dL Ur Leukocyte Esterase Negative (Negative) Disposition Clinical Impression: Dens fracture, Generalized weakness, Multiple falls Disposition: ADMITTED IP TO THIS [facility] Referrals: Arnoldo Coronel MD [Primary Care Provider] - 1-2 days Time of Disposition: 17:35
--- NOTE | 2021-10-28 14:26 | XR ---
EXAMINATION TYPE: XR chest 2V DATE OF EXAM: 10/28/2021 COMPARISON: Chest x-ray May 18, 2021 HISTORY: Fall injury with weakness. TECHNIQUE: Frontal and lateral views of the chest are obtained. FINDINGS: There are chronic right small changes bilaterally without definitive new focal air space o pacity, pleural effusion, or pneumothorax seen. The cardiac silhouette size is stable and upper limi ts of normal with atherosclerotic aorta. The osseous structures are demineralized. Surgical changes right shoulder is partially imaged. Underlying scoliosis is redemonstrated. IMPRESSION: Chronic changes without new acute pulmonary process.
--- NOTE | 2021-10-28 15:11 | CT ---
EXAMINATION TYPE: CT brain lilly melton con DATE OF EXAM: 10/28/2021 COMPARISON: 03/15/2021 HISTORY: 86-year-old male trauma, Fall, weakness, Dizziness CT DLP: 1481.8 mGycm Automated exposure control for dose reduction was used. Technique: Examination of the head was done in axial plane without intravenous contrast. Coronal and sagittal reconstructions performed. CT of the cervical spine was obtained in axial plane without intravenous injection of contrast mater ial. Coronal and sagittal reformatted images were obtained from the axial views for evaluation of f ractures, spinal alignment and canal. FINDINGS: Head: There is no evidence of acute intracranial hemorrhage, acute ischemic changes, mass, mass-effect, or extra-axial fluid collection. There is no effacement of cerebral sulci or basal subarachnoid cister ns. There is no hydrocephalus. There is no midline shift. Lopez-white matter distinction is preserv ed. Moderate patchy white matter hypodensities in both cerebral hemispheres. Query old biparietal jerome ho les. 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 Residual mucosal thickening remains. Complete opacification left frontal sinus. Orbits and globes are intact. Trace fl uid posterior left mastoid air cells questionable clinical significance. Cerumen within both external auditory canals. Cervical spine: Emphysematous change in the visualized upper lungs. Old calcified granulomatous are scattered within the visualized upper lungs. Mildly aneurysmal proximal aortic arch measuring up to 4.1 cm. No craniocervical junction abnormality or prevertebral soft tissue swelling. There is a chronic type II dens fracture. Minimal 3 mm of anterior displacement at the level of the fracture is relatively si milar prior. Reverse of the normal cervical lordosis with multilevel hypertrophic facet uncovertebral joint arthro ronald. Moderate decision by degenerative change mid to lower cervical spine. Degenerative grade 1 anterolisthesis C2-C3 and grade 1 retrolisthesis C4-C5 and C5-C6. No acute fracture of the cervical spine is identified. Variable mild spinal canal narrowing secondary to discussed by complex formation. There are variable moderate bilateral neural foraminal stenoses, more moderate to severe at some leve l such as on the left at C6/C7 and C5-C6. Sagittal and coronal reformatted images confirm above findings. COMBINED IMPRESSION: 1. Query old biparietal jerome holes. Moderate patchy burden of chronic small vessel ischemic disease. No acute intracranial abnormality seen. 2. Ununited type II dens fracture with 3 mm of offset, similar compared to 03/15/2021. Recommend clin ical correlation; despite this having been present on 03/15/2021 it is an unstable fracture. Patient may need specialist/surgical referral. Background moderate multilevel spondylotic change. No acute fr acture is seen. 3. Moderate long-standing paranasal sinus disease.
[2021-10-28 15:16] LABS: Basophils % (A) 0 %; Eosinophils # (A) 0.3 k/uL (0-0.7); Eosinophils % (A) 3 %; HCT 39.3 % (39.0-53.0); HGB 13.1 gm/dL (13.0-17.5); Lymphocytes # (A) 1.3 k/uL (1.0-4.8); Lymphocytes % (A) 12 %; MCH 32.4 pg (25.0-35.0); MCHC 33.2 g/dL (31.0-37.0); MCV 97.5 fL (80.0-100.0); Mean Platelet Volume 8.1; Monocytes # (A) 1.2 k/uL (0-1.0); Monocytes % (A) 11 %; Neutrophils # (A) 7.7 k/uL (1.3-7.7); Neutrophils % (A) 72 %; Partial Thromboplastin Time 23.2 sec (22.0-30.0); Platelet Count 271 k/uL (150-450); Prothrombin Time 10.5 sec (9.0-12.0); RBC 4.03 m/uL (4.30-5.90); RDW 13.5 % (11.5-15.5); WBC 10.7 k/uL (3.8-10.6)
[2021-10-28 15:19] LABS: ALT 11 U/L (4-49); AST 19 U/L (17-59); African American GFR (CKD) >90 (>60 ml/min/1.73 sqM); Albumin 3.3 g/dL (3.5-5.0); Alkaline Phosphatase 77 U/L (38-126); Anion Gap 7 mmol/L; Blood Urea Nitrogen 18 mg/dL (9-20); Calcium 8.7 mg/dL (8.4-10.2); Carbon Dioxide 23 mmol/L (22-30); Chloride 106 mmol/L (98-107); Glucose 107 mg/dL (74-99); Non-African American GFR(CKD) 78 (>60 ml/min/1.73 sqM); Sodium 136 mmol/L (137-145); Total Bilirubin 0.3 mg/dL (0.2-1.3); Total Protein 5.9 g/dL (6.3-8.2)
[2021-10-28 16:28] LABS: Appearance,Urine Clear (Clear); Bilirubin,Urine Negative (Negative); Blood,Urine Negative (Negative); Color,Urine Yellow; Glucose,Urine (UA) Negative (Negative); Ketones,Urine Negative (Negative); Leukocyte Esterase,Urine Negative (Negative); Nitrite,Urine Negative (Negative); Protein,Urine Trace (Negative); Specific Gravity,Urine 1.021 (1.001-1.035)
[2021-10-28] MEDS ORDERED: SODIUM CHLORIDE 0.9% 1,000 ML IV ONE (17:37)
[2021-10-28] MEDS: ATORVASTATIN 20 MG TAB PO SCH (21:07)
[2021-10-28] MEDS: cloNIDine HCL 0.1 MG TAB PO SCH (21:07)
[2021-10-28] MEDS: levETIRAcetam 500 MG TAB PO SCH (21:07)
--- NOTE | 2021-10-29 02:40 | P.HPIM ---
History of Present Illness H&P Date: 10/28/21 Chief Complaint: Frequent falling 86-year-old male with history of dementia Patient was brought into the hospital by his daughter for evaluation due to frequent falling over the past 24 hours. Patient himself unable to provide any meaningful history due to advanced dementia family not available at this time history obtained by reviewing medical records. In the ED seems like the daughter was reporting unusual behavior of her father over the past 24 hours before that she was at his baseline status of health he didn't seem to be sick or having any fevers or chills. However since yesterday he had 2 falls unwitnessed and then he almost had third one but they were able to catch him. Then later he started having abnormal behavior in the way he walks in urinating all over the place for which family decided to bring him in for evaluation. Patient himself has no complaints he is cooperative he is pleasant however he seems to be slightly confused at times he answers questions appropriately. CT imaging in the ER of the head and neck showed no acute pathology intrac ranially however evidence of prior bur holes. CT of the neck showed unstable type II dens fracture He denies any neck pain denies any new focal neuro deficit Review of Systems Patient is unreliable however Pertinent positives as noted in HPI. All other systems were reviewed and are negative Past Medical History Past Medical History: Cancer, CVA/TIA, GERD/Reflux, Hyperlipidemia, Hypertension Additional Past Medical History / Comment(s): kidney ca, brain hematoma History of Any Multi-Drug Resistant Organisms: None Reported Past Surgical History: Joint Replacement, Orthopedic Surgery Additional Past Surgical History / Comment(s): LT rotator cuff, BILAT knee replacement, RT kidney SX , bladder stimulator, MULTIPLE sinus SX , RT REVERSE SHOULDER, COLONOSCOPY, BILAT CATARACT SX, TURP, PENILE IMPLANT, RECTOCELE, HEMO RRHOID SX, jerome holes in skull for hematoma Past Anesthesia/Blood Transfusion Reactions: No Reported Reaction Past Psychological History: No Psychological Hx Reported Smoking Status: Never smoker, Unknown if ever smoked Past Alcohol Use History: Daily Additional Past Alcohol Use History / Comment(s): QUIT SMOKING 40-45 YEARS AGO Past Drug Use History: None Reported - Past Family History Mother Family Medical History: CVA/TIA Father Family Medical History: Cancer Sister(s) Family Medical History: Cancer Son(s) Family Medical History: Cancer Daughter(s) Family Medical History: Cancer Additional Family Medical History / Comment(s): 2 DAUGHTERS WITH CANCER Medications and Allergies Home Medications Medication Instructions Recorded Confirmed Type Famotidine [Pepcid] 40 mg PO DAILY@00 01/16/18 10/28/21 History Donepezil 23mg 23 mg PO DAILY@0803/15/21 10/28/21 History cloNIDine HCL 0.1 mg PO HS@199903/15/21 10/28/21 History levETIRAcetam [Keppra] 500 mg PO BID@799,199903/15/21 10/28/21 History Atorvastatin [Lipitor] 20 mg PO HS@199904/21/21 10/28/21 History Cyanocobalamin [Vitamin B-12 2,000 mcg SQ Q30D 05/17/21 10/28/21 History Injection] Sertraline [Zoloft] 25 mg PO DAILY@79910/28/21 10/28/21 History Allergies Allergy/AdvReac Type Severity Reaction Status Date / Time codeine AdvReac vomiting Verified 10/28/21 18:27 and passed out Physical Exam Vitals: Vital Signs Temp Pulse Pulse Resp BP BP Pulse Ox 10/29/21 02:00 97.8 F 55 L 20 138/83 95 10/28/21 20:00 95 10/28/21 17:59 65 18 164/96 99 10/28/21 16:25 64 18 151/87 96 10/28/21 13:20 98.3 F 76 16 108/71 95 Intake and Output 10/28/21 10/28/21 10/29/21 14:59 22:59 06:59 Other: Voiding Method Toilet Weight 56.699 kg 56.699 kg Constitutional: No acute distress, conversant, pleasant very hard of hearing Eyes: Anicteric sclerae, moist conjunctiva, Pupils equal round reactive to light ENMT: NC/AT Oropharynx clear, no erythema, or exudates Neck: Stiff neck collar in place Lungs: Clear to auscultation Clear to percussion Normal respiratory effort, no accessory muscle use Cardiovascular: Heart regular in rate and rhythm, No murmurs, gallops, or rubs No peripheral edema Abdominal: Soft Nontender, no guarding, rebound or rigidity Abdomen moving with respiration Normoactive bowel sounds No hepatomegaly, No splenomegaly No palpable mass No abdominal wall hernia noted Skin: Normal temperature, tone, texture, turgor No induration No subcutaneous nodules No rash, lesions No ulcers Extremities: No digital cyanosis No clubbing Pedal pulses intact and symmetrical Radial pulses intact and symmetrical No calf tenderness Psychiatric: Alert and oriented to person, place Neuro Muscles Strength 4/5 in all 4 extremities Sensation to light touch grossly present throughout Cranial nerves II-XII grossly intact No focal sensory deficits Results CBC & Chem 7: 10/28/21 14:11 10/28/21 14:11 Labs: Abnormal Lab Results - Last 24 Hours (Table) 10/28/21 10/28/21 10/28/21 Range/Units 14:11 14:11 16:20 WBC 10.7 H (3.8-10.6) k/uL RBC 4.03 L (4.30-5.90) m/uL Monocytes # 1.2 H (0-1.0) k/uL Sodium 136 L (137-145) mmol/L Glucose 107 H (74-99) mg/dL Total Protein 5.9 L (6.3-8.2) g/dL Albumin 3.3 L (3.5-5.0) g/dL Urine Protein Trace H (Negative) Thrombosis Risk Factor Assmnt - Choose All That Apply Any of the Below Risk Factors Present?: Yes Each Risk Factor Represents 3 Points: Age 75 years or older Thrombosis Risk Factor Assessment Total Risk Factor Score: 3 Thrombosis Risk Factor Assessment Level: Moderate Risk Assessment and Plan Assessment: Frequent falling over 24 hours Unstable type II dens fracture of the cervical spine Stiff neck collar in place Spine ortho consult Pain control Neurochecks CT imaging of the head and neck showed unstable type II dens fracture Blood work overall unremarkable Vital signs stable DVT prophylaxis mechanical CODE STATUS unable to discuss
[2021-10-29] MEDS: FAMOTIDINE 20 MG TAB PO SCH (08:25)
[2021-10-29] MEDS: DONEPEZIL 10 MG TAB PO SCH (08:25)
[2021-10-29] MEDS: SERTRALINE 25 MG TAB PO SCH (08:26)
[2021-10-29] MEDS: levETIRAcetam 500 MG TAB PO SCH ×2 (08:26→21:10)
[2021-10-29] MEDS ORDERED: HALOPERIDOL LACTATE 5 MG/ML 1 ML VIAL IM PRN (14:45)
--- NOTE | 2021-10-29 15:05 | P.PN ---
Subjective Progress Note Date: 10/29/21 Principal diagnosis: confusion Patient was calm and quiet this morning but throughout the day became uncooperative, took his neck collar off and was not cooperative with his care. I discussed his case further with his daughter on the phone who stated that about 5 years ago he had had hematomas status post burrhole. After that he was started on Keppra. He did not have any seizures lately. He was diagnosed with dementia according to the daughter 3 years ago, most recently he has been more and more confused, was holding a wheel gamez and marching in place. Was walking backwards. He has a bladder stimulator called his daughter, she knows the turf and grounds supervisor but she is unsure if it is an MRI compatible. He thinks he is in [place]. He is confused to the date as well. Objective - Vital Signs Vital signs: Vital Signs Temp 97.6 F 10/29/21 14:00 Pulse 72 10/29/21 14:00 Resp 18 10/29/21 14:00 BP 155/95 10/29/21 14:00 Pulse Ox 96 10/29/21 14:00 FiO2 Intake & Output 10/28/21 10/29/21 10/29/21 18:59 06:59 18:59 Weight 56.699 kg Other: Voiding Method Toilet Toilet - Exam Constitutional: No acute distress Eyes:Anicteric sclerae, moist conjunctiva, no lid-lag, PERRLA, ENMT: Oropharynx clear, no erythema, exudates Neck: Supple, FROM, no masses, or JVD, No carotid bruits, No thyromegaly Lungs: Clear to auscultation, Clear to percussion, Normal respiratory effort, no accessory muscle use Cardiovascular: Heart regular in rate and rhythm, No murmurs, gallops, or rubs, No peripheral edema Abdominal: Soft, Nontender, no guarding, rebound or rigidity, Normoactive bowel sounds, No hepatomegaly, No splenomegaly, No palpable mass Skin: Normal temperature, tone, texture, turgor, no induration, No subcutaneous nodules, No rash, lesions, No ulcers Extremities: No digital cyanosis, No clubbing, Pedal pulses intact and s ymmetrical, Radial pulses intact and symmetrical, No calf tenderness Neuro: Confused, all extremities. - Labs CBC & Chem 7: 10/28/21 14:11 10/28/21 14:11 Labs: Abnormal Lab Results - Last 24 Hours (Table) 10/28/21 10/28/21 10/28/21 Range/Units 14:11 14:11 16:20 WBC 10.7 H (3.8-10.6) k/uL RBC 4.03 L (4.30-5.90) m/uL Monocytes # 1.2 H (0-1.0) k/uL Sodium 136 L (137-145) mmol/L Glucose 107 H (74-99) mg/dL Total Protein 5.9 L (6.3-8.2) g/dL Albumin 3.3 L (3.5-5.0) g/dL Urine Protein Trace H (Negative) Assessment and Plan Plan: Frequent falling over 24 hours Acute delirium on chronic dementia Unstable type II dens fracture of the cervical spine Per ortho he needs to be wearing a neck collar but he keeps taking it up We'll give Haldol when necessary for agitation Discussed with daughter Neurocdiallo Sitter Neurology consult Possible brain MRI, according to neurology Hyperlipidemia Depression Stable Continue meds
--- NOTE | 2021-10-29 16:48 | P.CNOR ---
History of Present Illness - [facility] Consult date: 10/29/21 Consult reason: fracture History of present illness: Patient is an 86-year-old male seen at bedside this am in consultation for known dens fracture. He presented to the emergency department yesterday with his daugh funmilayo. Patient fell twice since two evenings ago. They were unwitnessed falls. Patient was about to fall third time when staff and daughter caught him. Patient himself has severe dementia and has had 2 subdurals in the past that required bur holes. Patient is unable to give any history the history comes from the daughter completely. Daughter states lately he has been more unstable and was urinating on the floor which he has never had done before. She has also noted that he started walking on his toes since which is also very unusual. Daughter states she doesn't notice any injury to the patient but she is unsure whether he hit his head or neck. Daughter states he has not been sick lately with the fever chills up until last night he was acting pretty much at his baseline. Daughter states she sees him nearly every day. He has no current complaints. Review of Systems ROS unobtainable: due to mental status Constitutional: Denies chills, Denies fever Eyes: denies blurred vision, denies pain Ears, nose, mouth and throat: Denies headache, Denies sore throat Cardiovascular: Denies chest pain, Denies shortness of breath Respiratory: Denies cough Gastrointestinal: Denies abdominal pain, Denies diarrhea, Denies nausea, Denies vomiting Musculoskeletal: Denies myalgias Integumentary: Denies pruritus, Denies rash Neurological: Denies numbness, Denies weakness Psychiatric: Denies anxiety, Denies depression Endocrine: Denies fatigue, Denies weight change Past Medical History Past Medical History: Cancer, CVA/TIA, GERD/Reflux, Hyperlipidemia, Hypertension Additional Past Medical History / Comment(s): kidney ca, brain hematoma History of Any Multi-Drug Resistant Organisms: None Reported Past Surgical History: Joint Replacement, Orthopedic Surgery Additional Past Surgical History / Comment(s): LT rotator cuff, BILAT knee rep lacement, RT kidney SX , bladder stimulator, MULTIPLE sinus SX , RT REVERSE SHOULDER, COLONOSCOPY, BILAT CATARACT SX, TURP, PENILE IMPLANT, RECTOCELE, HEMORRHOID SX, jerome holes in skull for hematoma Past Anesthesia/Blood Transfusion Reactions: No Reported Reaction Past Psychological History: No Psychological Hx Reported Smoking Status: Never smoker, Unknown if ever smoked Past Alcohol Use History: Daily Additional Past Alcohol Use History / Comment(s): QUIT SMOKING 40-45 YEARS AGO Past Drug Use History: None Reported - Past Family History Mother Family Medical History: CVA/TIA Father Family Medical History: Cancer Sister(s) Family Medical History: Cancer Son(s) Family Medical History: Cancer Daughter(s) Family Medical History: Cancer Additional Family Medical History / Comment(s): 2 DAUGHTERS WITH CANCER Medications and Allergies Home Medications Medication Instructions Recorded Confirmed Type Famotidine [Pepcid] 40 mg PO DAILY@79901/16/18 10/28/21 History Donepezil 23mg 23 mg PO DAILY@79903/15/21 10/28/21 History cloNIDine HCL 0.1 mg PO HS@199903/15/21 10/28/21 History levETIRAcetam [Keppra] 500 mg PO BID@799,199903/15/21 10/28/21 History Atorvastatin [Lipitor] 20 mg PO HS@199904/21/21 10/28/21 History Cyanocobalamin [Vitamin B-12 2,000 mcg SQ Q30D 05/17/21 10/28/21 History Injection] Sertraline [Zoloft] 25 mg PO DAILY@79910/28/21 10/28/21 History Allergies Allergy/AdvReac Type Severity Reaction Status Date / Time codeine AdvReac vomiting Verified 10/28/21 18:27 and passed out Physical Examination GEN: NAD, MAA Neuro: Upper and lower extremities are grossly intact with motor and sensation, no evidnece of hyperreflexia or focal deficit Vascular: pulses are 2 + and less than 2 sec cap refill present, Calves SNT Skin: no evidence of wounds, erythema or echymoses Results CT of head shows stable nondisplaced type 2 Dens fracture - Labs Labs: Abnormal Lab Results - Last 24 Hours (Table) 10/28/21 10/28/21 10/28/21 Range/Units 14:11 14:11 16:20 WBC 10.7 H (3.8-10.6) k/uL RBC 4.03 L (4.30-5.90) m/uL Monocytes # 1.2 H (0-1.0) k/uL Sodium 136 L (137-145) mmol/L Glucose 107 H (74-99) mg/dL Total Protein 5.9 L (6.3-8.2) g/dL Albumin 3.3 L (3.5-5.0) g/dL Urine Protein Trace H (Negative) H & H 10/28/21 Range/Units 14:11 Hgb 13.1 (13.0-17.5) gm/dL Hct 39.3 (39.0-53.0) % Coagulation 10/28/21 Range/Units 14:11 INR 1.0 (<1.2) Result Diagrams: 10/28/21 14:11 10/28/21 14:11 - Diagnostic results CT scan - cervical: report reviewed, image reviewed Assessment and Plan (1) Dens fracture Narrative/Plan: This patient was discussed with Dr. Hauser by ED physician. Dr. Huaser agreed to consult on patient and monitor. He has advised to have hard cervical collar placed. Patient had soft collar in place when I examined him in room. I put in a repeat order for an [place] hard collar and spoke with case manegment and nurse to obtain and have put in place. Will continue to monitor/follow. Current Visit: Yes Status: Acute Code(s): S12.110A - ANTERIOR DISPLACED TYPE II DENS FRACTURE, INIT FOR CLOS FX SNOMED Code(s): 820092606 Time with Patient: Less than 30
[2021-10-29] MEDS ORDERED: QUEtiapine 25 MG TAB PO STA (21:01)
[2021-10-29] MEDS: cloNIDine HCL 0.1 MG TAB PO SCH (21:10)
[2021-10-29] MEDS: ATORVASTATIN 20 MG TAB PO SCH (21:10)
[2021-10-30] MEDS: DONEPEZIL 10 MG TAB PO SCH (10:45)
--- NOTE | 2021-10-30 10:45 | P.PN ---
Subjective Progress Note Date: 10/30/21 Principal diagnosis: dens fracture Patient is seen at bedside this morning. He is resting comfortably sleeping. The interview is conducted with his daughter sitting at his bedside. He has no new findings or complaints today per his daughter. The [place] hard collar was obtained. He will not wear it as directed or advised. Objective - Vital Signs Vital signs: Vital Signs Temp 98.0 F 10/30/21 02:00 Pulse 67 10/30/21 02:00 Resp 16 10/30/21 09:36 BP 172/87 10/30/21 02:00 Pulse Ox 94 L 10/30/21 02:00 FiO2 Intake & Output 10/29/21 10/30/21 10/30/21 18:59 06:59 18:59 Intake Total 1080 Balance 1080 Intake: Oral 1080 Other: Voiding Method Toilet Toilet Toilet # Voids 3 1 1 - Exam full exam is not conducted due to him sleeping and resting comfortably. - Constitutional General appearance: Present: no acute distress - Labs CBC & Chem 7: 10/28/21 14:11 10/28/21 14:11 Assessment and Plan (1) Dens fracture Narrative/Plan: I advised his daughter to try to have him to continue with the hard cervical collar if possible. If he is not able to tolerate the hard collar then he should at least be wearing the soft collar. Also advised on restrictions and risks of a fall including displacement of the fracture and possibly causing . Will continue to monitor/follow. Current Visit: Yes Status: Acute Priority: Medium Code(s): S12.110A - ANTERIOR DISPLACED TYPE II DENS FRACTURE, INIT FOR CLOS FX SNOMED Code(s): 306277183 Time with Patient: Less than 30
[2021-10-30] MEDS: FAMOTIDINE 20 MG TAB PO SCH (10:46)
[2021-10-30] MEDS: levETIRAcetam 500 MG TAB PO SCH ×2 (10:46→20:00)
[2021-10-30] MEDS: SERTRALINE 25 MG TAB PO SCH (10:46)
--- NOTE | 2021-10-30 12:02 | P.PN ---
Subjective Progress Note Date: 10/30/21 Principal diagnosis: confusion Doing well. Was given halodol last night currently sleeping. Objective - Vital Signs Vital signs: Vital Signs Temp 98.2 F 10/30/21 11:00 Pulse 60 10/30/21 11:00 Resp 16 10/30/21 11:00 BP 171/93 10/30/21 11:00 Pulse Ox 96 10/30/21 11:00 FiO2 Intake & Output 10/29/21 10/30/21 10/30/21 18:59 06:59 18:59 Intake Total 1080 Balance 1080 Intake: Oral 1080 Other: Voiding Method Toilet Toilet Toilet # Voids 3 1 1 - Exam Constitutional: No acute distress Eyes:Anicteric sclerae, moist conjunctiva, no lid-lag, PERRLA, ENMT: Oropharynx clear, no erythema, exudates Neck: Supple, FROM, no masses, or JVD, No carotid bruits, No thyromegaly Lungs: Clear to auscultation, Clear to percussion, Normal respiratory effort, no accessory muscle use Cardiovascular: Heart regular in rate and rhythm, No murmurs, gallops, or rubs, No peripheral edema Abdominal: Soft, Nontender, no guarding, rebound or rigidity, Normoactive bowel sounds, No hepatomegaly, No splenomegaly, No palpable mass Skin: Normal temperature, tone, texture, turgor, no induration, No subcutaneous nodules, No rash, lesions, No ulcers Extremities: No digital cyanosis, No clubbing, Pedal pulses intact and symmetrical, Radial pulses intact and symmetrical, No calf tenderness Neuro: Confused, all extremities. - Labs CBC & Chem 7: 10/28/21 14:11 10/28/21 14:11 Assessment and Plan Plan: Frequent falling over 24 hours Acute delirium Unstable type II dens fracture of the cervical spine Per ortho he needs to be wearing a neck collar but he keeps taking it up We'll give Haldol when necessary for agitation Discussed with daughter Neurocheckbenita Sitter Neurology consult Possible brain MRI, according to neurology Hyperlipidemia Depression Stable Continue meds
--- NOTE | 2021-10-30 16:37 | P.CNNES ---
History of Present Illness Consult date: 10/30/21 Requesting physician: Luis Oneill Reason for Consult: confusion History of Present Illness: This is an 86-year-old gentleman with medical history of brain bleed due to multiple falls status post bur holes, recurrent falls, dementia for the last 3-4 years, hypertension who presented emergency department because of confusion and recurrent falls. History is obtained from the patient daughter was at bedside. She stated that the patient has been having recurrent falls for years but is residing at a shelter and it seems that he had a fall this Sunday. Yesterday the patient was confused. Patient does not have any history of seizures. Patient uses a walker to ambulate but notified me that the sometimes he is not using the walker. Patient is on home medication of Keppra 500 mg every 12 hours. It seems that the patient was agitated overnight and was given Seroquel 25 mg once. Of note is seems the patient had history of brain bleed and it seems she had hematoma and had bur hole she stated that he had bur hole done in 2017 and 2018 while in [place]. Patient has bilateral urinary stimulator and the daughter stated that limits in getting MRI. Some of the workup in our facility during this hospital visit consisted of CT of the brain is reported old bilateral bur holes. Moderate patchy burden of chronic small vessel ischemic disease. No acute intracranial abnormality seen. Moderate long-standing paranasal sinus disease. I personally reviewed the CT head and I agree with the report CT of cervical spine was reported as unintended type II dens fracture with 3 mm of offset similar compared to 03/15/2021. Recommend clinical correlation; despite having been present on 03/15/2021 it's unstable fracture. Patient may need a specialist/surgical referral. Background moderate multilevel spondylitic changes. No acute fracture seen. His PT, INR PTT is within normal limits Urinalysis is negative for urinary tract infection. Review of Systems Review of system is limited by the per positive and negative as per HPI. Past Medical History Past Medical History: Cancer, CVA/TIA, GERD/Reflux, Hyperlipidemia, Hypertension Additional Past Medical History / Comment(s): kidney ca, brain hematoma History of Any Multi-Drug Resistant Organisms: None Reported Past Surgical History: Joint Replacement, Orthopedic Surgery Additional Past Surgical History / Comment(s): LT rotator cuff, BILAT knee replacement, RT kidney SX , bladder stimulator, MULTIPLE sinus SX , RT REVERSE SHOULDER, COLONOSCOPY, BILAT CATARACT SX, TURP, PENILE IMPLANT, RECTOCELE, HEMORRHOID SX, jerome holes in skull for hematoma Past Anesthesia/Blood Transfusion Reactions: No Reported Reaction Past Psychological History: No Psychological Hx Reported Smoking Status: Never smoker, Unknown if ever smoked Past Alcohol Use History: Daily Additional Past Alcohol Use History / Comment(s): QUIT SMOKING 40-45 YEARS AGO Past Drug Use History: None Reported - Past Family History Mother Family Medical History: CVA/TIA Father Family Medical History: Cancer Sister(s) Family Medical History: Cancer Son(s) Family Medical History: Cancer Daughter(s) Family Medical History: Cancer Additional Family Medical History / Comment(s): 2 DAUGHTERS WITH CANCER Medications and Allergies Home Medications Medication Instructions Recorded Confirmed Type Famotidine [Pepcid] 40 mg PO DAILY@79901/16/18 10/28/21 History Donepezil 23mg 23 mg PO DAILY@79903/15/21 10/28/21 History cloNIDine HCL 0.1 mg PO HS@199903/15/21 10/28/21 History levETIRAcetam [Keppra] 500 mg PO BID@799,199903/15/21 10/28/21 History Atorvastatin [Lipitor] 20 mg PO HS@199904/21/21 10/28/21 History Cyanocobalamin [Vitamin B-12 2,000 mcg SQ Q30D 05/17/21 10/28/21 History Injection] Sertraline [Zoloft] 25 mg PO DAILY@79910/28/21 10/28/21 History Allergies Allergy/AdvReac Type Severity Reaction Status Date / Time codeine AdvReac vomiting Verified 10/28/21 18:27 and passed out Physical Examination - Vital Signs Vital Signs: Vital Signs Temp Pulse Resp BP Pulse Ox 10/30/21 14:00 98.4 F 51 L 16 168/60 96 10/30/21 11:00 98.2 F 60 16 171/93 96 10/30/21 09:36 16 10/30/21 02:00 98.0 F 67 16 172/87 94 L 10/29/21 19:13 97.6 F 77 16 157/87 95 Intake and Output 10/30/21 10/30/21 10/30/21 06:59 14:59 22:59 Other: Voiding Method Toilet # Voids 1 1 GENERAL: The patient is lying in bed and is not in acute distress. HENT: Has cervical collar. CHEST: The heart rate is regular rate rhythm. No murmurs to auscultation. LUNG: Clear to auscultation bilaterally no wheezing noted throughout. Not labored breathing. ABDOMEN/GI: Bowel sounds present in all 4 quadrants. No tenderness to palpation throughout. NEUROLOGICAL: Limited because of his condition/cooperation. Higher mental function: The patient is somnolent but is briefly awakeable to voice. Is oriented to self. Is following some simple commands. Cranial nerves: The pupils are round, equal and reactive to light. Hard to assess dysarthria since not wearing his dentures (per daughter sounds normal). No facial weakness. Rest limited. Motor: The strength is hard to assess individual muscles but lifting bilateral above gravity and moving ankles antigravity bilaterally. Normal tone and bulk. Cerebellum: Unable to assess. Sensation: Unable to assess. Reflexes (right/left): 1+ throughout. Plantars are mute bilaterally. Results - Laboratory Findings CBC and BMP: 10/28/21 14:11 10/28/21 14:11 Abnormal Lab Findings: Abnormal Labs 10/28/21 10/28/21 10/28/21 14:11 14:11 16:20 WBC 10.7 H RBC 4.03 L Monocytes # 1.2 H Sodium 136 L Glucose 107 H Total Protein 5.9 L Albumin 3.3 L Urine Protein Trace H Assessment and Plan Assessment: Encephalopathy of unknown etiology. At baseline is oriented X2 (self and place) and currently is to self. Currently it could have been exacerbated due to medication effect (antipsychotics). Type II dens fracture with 3 mm of offset similar compared to 03/15/[address] Recurrent falls (uses a walker and per daughter sometimes does not use walker) History of brain bleed/hematoma due to multiple falls status post bur holes Dementia for past 3-4 years Hypertension Bladder stimulator Plan: Ordered routine EEG since having confusion to rule out seizure. He is on his home medication of Keppra 500mg bid. I ordered repeat CT head for tomorrow to assess if any new changes compared to initial Ordered TSH, vitamin B-12, folate, ammonia level Every 4 hours neuro checks Orthopedic surgery team is on board Consulted PT and OT for gait training Ordered orthostatic was the patient is more stable to perform the exam We'll defer the rest of the medical management to the primary team. The plan discussed with the patient's daughter who is at bedside. Thank you for the consultation. Dr. Mcdaniel will start neurology service tomorrow a.mDeisi Jackson MD Neuro-Hospitalist Time with Patient: Greater than 30
[2021-10-30] MEDS: ATORVASTATIN 20 MG TAB PO SCH (20:00)
[2021-10-30] MEDS: cloNIDine HCL 0.1 MG TAB PO SCH (20:00)
--- NOTE | 2021-10-31 08:32 | P.PN ---
Progress Note - Text Progress Note Date: 10/31/21 Orthopedic spine: History of present illness: Patient is a pleasant 86-year-old male who is seen examined at bedside for follow-up evaluation regards to his cervical spine. He is known to have a dense fracture. Patient denies any cervical pain. He is able to perform active range of motion of the cervical spine without significant difficulty. He states he does not like the brace. He denies any upper extremity weakness or radiculopathy bilaterally. Patient does have a history of falling a couple nights ago which were unwitnessed. Patient does have a history of dementia. She still medical diagnoses include hyperlipidemia, hypertension, and history of 2 subdural hematomas. Patient resides in a long-term facility. Family is not present at the bedside. Patient is being seen by medicine and neurology. Documentation states the patient was significantly confused yesterday. He is able to answer simple questions at the bedside this morning without difficulty. Physical exam: Patient is awake, alert, and oriented 3 Vital signs stable Good chest excursion with deep inspiration and expiration Examination of the cervical spine reveals skin is intact with no abrasions, lacerations, or bruises; no erythema, purulence or signs of infection No pain with palpation over the paraspinal muscles of the cervical spine over the trapezius bilaterally Patient is able to perform range of motion of the cervical spine with adequate flexion, extension, and bilateral rotation Display Designer Outside strength, thumb strength, interosseous strength, biceps strength, triceps strength, and shoulder strength positive sustained bilaterally with generalized weakness but nonspecific weakness Neurovascularly intact bilateral upper extremities Pertinent studies: CT of the brain and cervical spine taken on 10/28/2021: Ununited type II dens fracture with 3 mm of offset similar as compared to previous study taken on 03/15/2021; no acute intracranial abnormality seen; reversal of normal cervical lordosis; multilevel cervical facet hypertrophy and uncovertebral joint arthropathy; C2-3 grade 1 spondylolisthesis; C4-5 and C5-6 grade 1 retrolisthesis; C5-6 and C6-7 bilateral neural foraminal stenosis; mid to lower cervical degenerative disc disease Assessment: Chronic dens fracture visualized previously on imaging from 03/15/2021 C2-3 grade 1 spondylolisthesis; C4-5 and C5-6 grade 1 retrolisthesis Cervical facet hypertrophy and uncovertebral joint arthropathy Cervical degenerative disc disease Dementia Hyperlipidemia Hypertension History of 2 subdural hematomas Plan: 1. Patient has been discussed in detail with Dr. Tomas Hauser. Patient is known to have her see sustained a dens fracture at some point which was visualized on imaging from 03/15/2021. This fracture is chronic. He is known to have significant degenerative changes at his cervical spine. Patient is not currently experiencing any cervical pain. He is not experiencing any upper extr emity weakness or radiculopathy bilaterally. He states his arms function well. He is able to perform active range of motion of the cervical spine without difficulty. At this time, we plan to have him to continue with conservative treatment. We're not planning for acute surgical intervention in regards to his cervical spine. We did discuss he is not required to wear the hard cervical collar or soft cervical collar. He may wear these for comfort support as needed. From an orthopedic spine standpoint, patient is clear for discharge once cleared by other medical providers. We will plan to have him follow-up in the outpatient setting for further evaluation. Patient may follow-up with Camilo Parker PA-C or Dr. Tomas Hauser at [facility] in 2-3 weeks following discharge. 2. Patient will continue be seen examined by multiple other medical providers including medicine and neurology I was able to see the patient this morning and discuss the patient with our physician food and beverage assistant manager. I am in agreement with the above. Patient will continue conservative care.
[2021-10-31 09:01] VITALS: RESP 16
[2021-10-31] MEDS: FAMOTIDINE 20 MG TAB PO SCH (09:03)
[2021-10-31] MEDS: DONEPEZIL 10 MG TAB PO SCH (09:04)
[2021-10-31] MEDS: levETIRAcetam 500 MG TAB PO SCH (09:04)
[2021-10-31] MEDS: SERTRALINE 25 MG TAB PO SCH (09:04)
--- NOTE | 2021-10-31 12:40 | EEG ---
ELECTROENCEPHALOGRAM REPORT DATE OF SERVICE: 10/31/2021 PREAMBLE: This is an 86-year-old male with altered mental status. He came with multiple falls. He has some episodes of confusion as well. He has history of brain bleed due to multiple falls. He has old bilateral bur holes. No history of seizures, however. The patient currently takes Lipitor, Catapres, Aricept, Pepcid, Haldol, Keppra, and Zoloft. EEG FINDINGS: This is a 21 channel digital EEG recorded with video competent, utilizing 10/20 international system with referential and bipolar montages. Background consists of well-developed, moderately well regulated, mixed frequencies of 8 hertz alpha, with some 6 hertz theta and some superimposed fast frequency beta activity seen in bihemispheric region. Background does not seem to be clearly reactive to eye opening or closing. Photic driving response was not seen. Some stage II sleep was seen with presence of sleep spindles and some vertex waves. No focal or generalized epileptiform activity was seen. IMPRESSION: This is a mildly abnormal EEG due to presence of mixed slightly slower and fast frequency activities seen in bihemispheric region. This is suggestive of generalized cerebral dysfunction as can be seen with encephalopathy or medication effect. No definitive epileptiform activity was seen. MMODL / IJN: [id number] /
--- NOTE | 2021-10-31 15:54 | CT ---
EXAMINATION TYPE: CT brain wo con CT DLP: 1099.4 mGycm, Automated exposure control for dose reduction was used. DATE OF EXAM: 10/31/2021 3:35 PM COMPARISON: CT brain C-spine 10/28/2021 CLINICAL INDICATION:Male, 86 years old with history of altered mental status. Stroke, Altered mental status. TECHNIQUE: Brain: Multiple axial CT images of the brain were obtained without IV contrast. FINDINGS: Brain: Extra-axial spaces: No abnormal extra-axial fluid collections. Ventricular system: Dilatation in proportion to cerebral atrophy. Cerebral parenchyma: No acute intraparenchymal hemorrhage or mass effect. The avitia-white junction is well differentiated. Similar moderate patchy periventricular and subcortical hypodensities in both c erebral hemispheres. Cerebellum: Unremarkable. Mass effect: No evidence of midline shift. Intracranial vasculature: Atherosclerotic calcifications of the intracranial vessels. Soft tissues: Normal. Calvarium/osseous structures: No depressed skull fracture. Remote bilateral parietal jerome holes. Paranasal sinuses and mastoid air cells: The mastoid air cells are clear. Redemonstration of a long-s tanding chronic paranasal sinus disease with extensive reactive osteoporosis and postsurgical changes . Residual mucosal thickening remains. Again complete opacification of the frontal sinus. Visualized orbits: Calcification bilateral globes redemonstrated. IMPRESSION: No acute intracranial process with no significant change from prior examination 10/28/2021. Moderate chronic small vessel ischemic white matter changes.
--- NOTE | 2021-10-31 16:53 | P.DS ---
Providers Date of admission: 10/28/21 17:37 Expected date of discharge: 10/31/21 Attending physician: Lolis Rios, DO Consults: 10/28/21 17:37 Consult Physician Urgent Consulting Provider: Crow Hauser Consult Reason/Comments: dens fracture Do you want consulting provider notified?: Yes 10/29/21 14:48 Consult Physician Routine Consulting Provider: Korey Jackson Consult Reason/Comments: confusion Do you want consulting provider notified?: Yes Primary care physician: Arnoldo Walker [facility] Course: 86-year-old male with history of dementia who came in for evaluation due to frequent falls. Daughter reported unusual behavior of her father, who was walking back and forth with a wheelbell constantly, was urinating all over the place for which family decided to bring him in for evaluation. His behavior has been erratic, sometimes he is calm and cooperative and other times he is agitated. Upon admission he had CT imaging in the ER of the head and neck which showed no acute pathology intracranially however evidence of prior bur holes. CT of the neck showed unstable type II dens fracture. He was seen by orthopedic surgeon for that and it was felt that this fracture is old and that he did not need any surgical intervention or a collar for it. Patient denies any neck pain , no new focal neuro deficit. During the hospitalization he was profoundly confused, was not able to answer all of the orientation questions including to place and date. He was agitated and not cooperative with his care at times as well. He was medicated with halodol. He was not able to have a brain MRI due to presence of bladder stimulator. He was seen by neurology who advised repeating the CAT scan of his brain. This was done and did not show any acute abnormalities. EEG was done as well and that just showed encephalopathy. No epileptiform discharges found. Currently he is calm, doing well, will be discharged in a stable condition Time for discharge 35 min Plan - Discharge Summary Discharge Rx Participant: No New Discharge Prescriptions: New risperiDONE [RisperDAL] 1 mg PO HS 30 Days #30 tablet Continue Famotidine [Pepcid] 40 mg PO DAILY@0800 cloNIDine HCL 0.1 mg PO HS@1999 Sertraline [Zoloft] 25 mg PO DAILY@0800 levETIRAcetam [Keppra] 500 mg PO BID@0800,1999 Donepezil 23mg 23 mg PO DAILY@0800 Atorvastatin [Lipitor] 20 mg PO HS@1999 Cyanocobalamin [Vitamin B-12 Injection] 2,000 mcg SQ Q30D Discharge Medication List Famotidine [Pepcid] 40 mg PO DAILY@0800 01/16/18 [History] Donepezil 23mg 23 mg PO DAILY@0800 03/15/21 [History] cloNIDine HCL 0.1 mg PO HS@199903/15/21 [History] levETIRAcetam [Keppra] 500 mg PO BID@799,199903/15/21 [History] Atorvastatin [Lipitor] 20 mg PO HS@199904/21/21 [History] Cyanocobalamin [Vitamin B-12 Injection] 2,000 mcg SQ Q30D 05/17/21 [History] Sertraline [Zoloft] 25 mg PO DAILY@0800 10/28/21 [History] risperiDONE [RisperDAL] 1 mg PO HS 30 Days #30 tablet 10/31/21 [Rx] Follow up Appointment(s)/Referral(s): Arnoldo Coronel MD [Primary Care Provider] - 1-2 days Camilo Parker PAC [PHYSICIAN COST CONSULTANT] - 2 Weeks (Patient may follow-up with Camilo Parker PA-C or Dr. Tomas Hauser at [facility] in 2-3 weeks following discharge. ) Activity/Diet/Wound Care/Special Instructions: [facility]: [phone] 1. Patient may wear soft cervical collar or hard cervical collar for comfort support as needed. Patient is not required to keep hard cervical collar intact.
[2021-10-31 17:27] VITALS: BP 169/84; PULSE 60; TEMP 97.7
== END 2021-10-31 17:42 | disposition home health service (06) | DRG 552 ==
LOC: EC 13:05 → 4SSUR 17:37
PROVIDERS: ADMIT Internal Medicine; ATTEND Internal Medicine
DX: S12.110A Anterior displaced Type II dens fracture, initial encounter for closed fracture (principal); G93.40 Encephalopathy, unspecified; I48.91 Unspecified atrial fibrillation; R29.6 Repeated falls; W19.XXXA Unspecified fall, initial encounter; E78.5 Hyperlipidemia, unspecified; F03.90 Unspecified dementia, unspecified severity, without behavioral disturbance, psychotic disturbance, mood disturbance, and anxiety; K21.9 Gastro-esophageal reflux disease without esophagitis; M43.12 Spondylolisthesis, cervical region; R45.1 Restlessness and agitation; M47.812 Spondylosis without myelopathy or radiculopathy, cervical region; I10 Essential (primary) hypertension; Z79.82 Long term (current) use of aspirin; Z79.899 Other long term (current) drug therapy; Z82.3 Family history of stroke; Z85.528 Personal history of other malignant neoplasm of kidney; Z86.73 Personal history of transient ischemic attack (TIA), and cerebral infarction without residual deficits; Z91.81 History of falling; Z96.653 Presence of artificial knee joint, bilateral; Z87.891 Personal history of nicotine dependence; Z88.5 Allergy status to narcotic agent
CPT/HCPCS: 36415; 70450; 71046; 72125; 80053; 81003; 82140; 82607; 82746; 83605; 84443; 84484; 85025; 85610; 85730; 93005; 95816; 95819; 96360; 99285

== ENCOUNTER 2021-11-03 16:27 | Emergency (ER) | payer MEDICARE, BC ==
[2021-11-03 18:22] VITALS: RESP 16
--- NOTE | 2021-11-03 18:32 | ED ---
Male Urogenital HPI - General Chief complaint: Urogenital Stated complaint: Bladder Retention Time Seen by Provider: 11/03/21 18:12 Source: patient, family, RN notes reviewed Mode of arrival: ambulatory Limitations: no limitations - History of Present Illness Initial comments: This is a pleasant 86-year-old male with history of kidney cancer, brain hematoma, hyperlipidemia, hypertension, and previous CVA. Patient presents to the emergency department today with urinary retention. Symptoms by his primary care physician. 9 any discomfort. No changes in bowel movements. No symptoms of saddle anesthesia. Denies any pain but has not urinated since yesterday. No headache, no fever or chills, no changes in vision or hearing, no sore throat or difficulty with speech, no neck pain, no chest pain or shortness of breath, no abdominal pain, no nausea or vomiting, no changes in bowel movements, no numbness or tingling, no extremity pain, no skin rashes or lesions. - Related Data Home Medications Medication Instructions Recorded Confirmed Famotidine [Pepcid] 40 mg PO DAILY@0800 01/16/18 11/03/21 Donepezil 23mg 23 mg PO DAILY@79903/15/21 11/03/21 cloNIDine HCL 0.1 mg PO HS@199903/15/21 11/03/21 levETIRAcetam [Keppra] 500 mg PO BID@799,199903/15/21 11/03/21 Atorvastatin [Lipitor] 20 mg PO HS@199904/21/21 11/03/21 Cyanocobalamin [Vitamin B-12 2,000 mcg SQ Q30D 05/17/21 11/03/21 Injection] Sertraline [Zoloft] 25 mg PO DAILY@0810/28/21 11/03/21 risperiDONE [RisperDAL] 1 mg PO HS@199911/03/21 11/03/21 Allergies Allergy/AdvReac Type Severity Reaction Status Date / Time codeine AdvReac vomiting Verified 11/03/21 23:03 and passed out Review of Systems ROS Statement: Those systems with pertinent positive or pertinent negative responses have been documented in the HPI. ROS Other: All systems not noted in ROS Statement are negative. Past Medical History Past Medical History: Cancer, CVA/TIA, GERD/Reflux, Hyperlipidemia, Hypertension Additional Past Medical History / Comment(s): kidney ca, brain hematoma History of Any Multi-Drug Resistant Organisms: None Reported Past Surgical History: Joint Replacement, Orthopedic Surgery Additional Past Surgical History / Comment(s): LT rotator cuff, BILAT knee replacement, RT kidney SX , bladder stimulator, MULTIPLE sinus SX , RT REVERSE SHOULDER, COLONOSCOPY, BILAT CATARACT SX, TURP, PENILE IMPLANT, RECTOCELE, HEMORRHOID SX, jerome holes in skull for hematoma Past Anesthesia/Blood Transfusion Reactions: No Reported Reaction Past Psychological History: No Psychological Hx Reported Smoking Status: Never smoker, Unknown if ever smoked Past Alcohol Use History: Daily Past Drug Use History: None Reported - Past Family History Mother Family Medical History: CVA/TIA Father Family Medical History: Cancer Sister(s) Family Medical History: Cancer Son(s) Family Medical History: Cancer Daughter(s) Family Medical History: Cancer Additional Family Medical History / Comment(s): 2 DAUGHTERS WITH CANCER General Exam - General Exam Comments Initial Comments: Elderly male in no acute distress. Does not appear to be ill or toxic.Vital signs noted, patient noted to be hypertensive. Limitations: no limitations General appearance: alert, in no apparent distress Head exam: Present: atraumatic, normocephalic, normal inspection Eye exam: Present: normal appearance, PERRL, EOMI. Absent: scleral icterus, conjunctival injection, periorbital swelling ENT exam: Present: normal exam, mucous membranes moist Neck exam: Present: normal inspection. Absent: tenderness, meningismus, lymphadenopathy Respiratory exam: Present: normal lung sounds bilaterally. Absent: respiratory distress, wheezes, rales, rhonchi, stridor Cardiovascular Exam: Present: regular rate, normal rhythm, normal heart sounds. Absent: systolic murmur, diastolic murmur, rubs, gallop, clicks GI/Abdominal exam: Present: soft, normal bowel sounds. Absent: distended, tenderness, guarding, rebound, rigid Extremities exam: Present: normal inspection, full ROM, normal capillary refill. Absent: tenderness, pedal edema, joint swelling, calf tenderness Back exam: Present: normal inspection Neurological exam: Present: alert, oriented X3, CN II-XII intact Psychiatric exam: Present: normal affect, normal mood Skin exam: Present: warm, dry, intact, normal color. Absent: rash Course Vital Signs 11/03/21 11/03/21 18:20 21:10 Temperature 98.4 F 97.0 F L Pulse Rate 50 L 56 L Respiratory 16 Rate Blood Pressure 172/79 166/93 O2 Sat by Pulse 95 97 Oximetry - Reevaluation(s) Reevaluation #1: 11/03/21 22:17 Medical record is reviewed Symptoms are improved here in the emergency department Patient is informed of results and questions answered Patient in no distress Repeat examination reveals a rectal examination with good rectal tone. No mass. No tenderness. Patient does have some mild bilateral lumbar paraspinal tenderness. No definitive midline tenderness. No symptoms of saddle anesth esia. Patient has good sensation to the saddle area with light touch and pinprick. Given the patient's age and recent fall on October 28 I'm going to obtain a CT of the patient's lumbar spine. However, patient showed no evidence of cauda equina syndrome. Reevaluation #2: 11/04/21 00:53 Medical record is reviewed Patient in no distress at discharge. Gunderson catheter was discontinued. Patient found to be constipated on computed tomography scan. Medical Decision Making - Medical Decision Making Patient presents with decreased urination. Carlos physical examination shows no evidence of significant bladder distention. I did scan did not show a significant amount of urine in the bladder. We did insert a Gunderson catheter which only showed a 135 mL urine volume. We'll send for analysis. Given the fact the patient just fell on October 28 I did assess the patient's back. There was no evidence of cauda equina syndrome. Mild lumbar paraspinal tenderness. Sensation the saddle area was normal to light touch and pinprick. Rectal tone was adequate. CT abdomen and pelvis along with lumbar spine was ordered due to the recent fall. We'll order a fluid bolus as the patient does appear to be somewhat dehydrated with increase BUN to creatinine ratio. There were some changes in the lower lungs. However the patient has no symptomology consistent with pneumonia. I did offer admission as the patient currently is at assisted living. However the daughter is not interested in having the patient go to a jail. Patient will enough for discharge. Released with daughter. Patient was told to return to the ER for any signs or symptoms worsen. Told to return immediately if any other problems arise. All questions answered. Treatment plan discussed. Patient in agreement Every effort has been made to ensure accuracy of this dictation. However, due to the limitations of electronic medical records and dictation devices, errors in charting still occur. Patient released in stable condition with his daughter Family Services Assistant Dr. Ying - Lab Data Result diagrams: 11/03/21 18:42 11/03/21 18:42 Lab Results 11/03/21 11/03/21 11/03/21 Range/Units 18:42 18:42 18:42 WBC 7.5 (3.8-10.6) k/uL RBC 4.15 L (4.30-5.90) m/uL Hgb 12.9 L (13.0-17.5) gm/dL Hct 41.1 (39.0-53.0) % MCV 99.0 (80.0-100.0) fL MCH 31.1 (25.0-35.0) pg MCHC 31.4 (31.0-37.0) g/dL RDW 13.5 (11.5-15.5) % Plt Count 302 (150-450) k/uL MPV 8.2 Neutrophils % 66 % Lymphocytes % 18 % Monocytes % 10 % Eosinophils % 4 % Basophils % 0 % Neutrophils # 4.9 (1.3-7.7) k/uL Lymphocytes # 1.4 (1.0-4.8) k/uL Monocytes # 0.7 (0-1.0) k/uL Eosinophils # 0.3 (0-0.7) k/uL Basophils # 0.0 (0-0.2) k/uL Sodium 141 (137-145) mmol/L Potassium 4.4 (3.5-5.1) mmol/L Chloride 109 H (98-107) mmol/L Carbon Dioxide 27 (22-30) mmol/L Anion Gap 5 mmol/L BUN 24 H (9-20) mg/dL Creatinine 1.03 (0.66-1.25) mg/dL Est GFR (CKD-EPI)AfAm 75 (>60 ml/min/1.73 sqM) Est GFR (CKD-EPI)NonAf 65 (>60 ml/min/1.73 sqM) Glucose 113 H (74-99) mg/dL Calcium 8.9 (8.4-10.2) mg/dL Urine Color Yellow Urine Appearance Clear (Clear) Urine pH 6.0 (5.0-8.0) Ur Specific [place] 1.035 (1.001-1.035) Urine Protein 1+ H (Negative) Urine Glucose (UA) Negative (Negative) Urine Ketones Trace H (Negative) Urine Blood Negative (Negative) Urine Nitrite Negative (Negative) Urine Bilirubin Negative (Negative) Urine Urobilinogen 3.0 (<2.0) mg/dL Ur Leukocyte Esterase Negative (Negative) Urine RBC 1 (0-5) /hpf Urine WBC 1 (0-5) /hpf Ur Squamous Epith Cells <1 (0-4) /hpf Urine Bacteria Rare H (None) /hpf Urine Mucus Many H (None) /hpf Disposition Clinical Impression: Urinary problem, Dehydration Disposition: HOME SELF-CARE Condition: Good Instructions (If sedation given, give patient instructions): Constipation (ED), Dehydration (ED) Additional Instructions: Drink one half bottle of magnesium citrate, weight 6 hours, bowel movement, drink the other half. Stay hydrated. Follow-up with your regular physician as directed. Return to the ER immediately if any symptoms worsen, new symptoms arise, or any other problems develop. Is patient prescribed a controlled substance at d/c from ED?: No Referrals: Arnoldo Coronel MD [Primary Care Provider] - 1-2 days Time of Disposition: 00:39
[2021-11-03 18:57] LABS: Basophils % (A) 0 %; Eosinophils # (A) 0.3 k/uL (0-0.7); Eosinophils % (A) 4 %; HCT 41.1 % (39.0-53.0); HGB 12.9 gm/dL (13.0-17.5); Lymphocytes # (A) 1.4 k/uL (1.0-4.8); Lymphocytes % (A) 18 %; MCH 31.1 pg (25.0-35.0); MCHC 31.4 g/dL (31.0-37.0); Mean Platelet Volume 8.2; Monocytes # (A) 0.7 k/uL (0-1.0); Monocytes % (A) 10 %; Neutrophils # (A) 4.9 k/uL (1.3-7.7); Neutrophils % (A) 66 %; Platelet Count 302 k/uL (150-450); RBC 4.15 m/uL (4.30-5.90); RDW 13.5 % (11.5-15.5); WBC 7.5 k/uL (3.8-10.6)
[2021-11-03 19:23] LABS: Calcium 8.9 mg/dL (8.4-10.2); Potassium 4.4 mmol/L (3.5-5.1)
[2021-11-03 21:11] VITALS: BP 166/93; PULSE 56; TEMP 97
[2021-11-03 22:17] LABS: Appearance,Urine Clear (Clear); Bacteria,Urine Rare /hpf; Bilirubin,Urine Negative (Negative); Blood,Urine Negative (Negative); Color,Urine Yellow; Glucose,Urine (UA) Negative (Negative); Ketones,Urine Trace (Negative); Leukocyte Esterase,Urine Negative (Negative); Mucus,Urine Many /hpf; Nitrite,Urine Negative (Negative); Protein,Urine 1+ (Negative); RBC,Urine 1 /hpf (0-5); Specific Gravity,Urine 1.035 (1.001-1.035); Squamous Epithelial Cell,Urine <1 /hpf (0-4); WBC,Urine 1 /hpf (0-5)
[2021-11-03] MEDS ORDERED: SODIUM CHLORIDE 0.9% 1,000 ML IV ONE (22:18)
--- NOTE | 2021-11-03 23:57 | CT ---
EXAM: CT Lumbar Spine Without Intravenous Contrast CLINICAL HISTORY: ITS.REASON CT Reason: Recent fall TECHNIQUE: Axial computed tomography images of the lumbar spine without intravenous contrast. CTDI is 13.8 mGy and DLP is 1050.5 mGy-cm. This CT exam was performed using one or more of the following dose reduction techniques: automated exposure control, adjustment of the mA and/or kV according to patient size, and/or use of iterative reconstruction technique. COMPARISON: 03/15/2021. FINDINGS: Vertebrae: 2.5 cm hemangioma the L4 vertebral body. Grade 1 retrolisthesis of L3 upon L4 vertebral body. Minimal chronic compression fracture of the L1 vertebral body along the inferior endplate. Transaxial images of the lumbar spine reveals posterior facet hypertrophy and multilevel disc osteophyte complexes. Dextroscoliosis of the lumbar spine. Transverse processes of the lumbar spine are unremarkable. Sacrum/coccyx: Lower thoracic spine and the sacrum are unremarkable. Discs/spinal canal/neural foramina: Moderate to severe degenerative disc disease of the thoracolumbar spine is noted. Multilevel vacuum discs are noted at L3-4, L4-5, and L5-S1 levels. No spinal canal stenosis. Soft tissues: Unremarkable. Other findings: Moderate osteoarthritic changes about the sacroiliac joints. Cardiomegaly. IMPRESSION: 1. Advanced degenerative disc disease. 2. Multilevel vacuum discs. 3. No acute injury to the lumbar spine is detected.
--- NOTE | 2021-11-04 00:29 | CT ---
EXAMINATION TYPE: CT abdomen pelvis wo con DATE OF EXAM: 11/03/2021 COMPARISON: 03/15/2021 HISTORY: urinary retention, suprapubic discomfort CT DLP: 1050.5 mGycm Automated exposure control for dose reduction was used. There is some infiltrate and atelectasis at both lung bases. There is coronary artery calcification. There is no pericardial effusion. Liver spleen stomach pancreas appear intact. The bile ducts are not dilated. Gallbladder appears norm al. There is no adrenal mass. Kidneys of normal size. There is 2 mm calculus lower pole left kidney. No h ydronephrosis. Ureters are not dilated. No retroperitoneal adenopathy. There is penile implant. There is Gunderson catheter in the urinary bladder. Bladder is empty. There is a neurostimulator in the sacrum . No bowel obstruction. No mesenteric edema. No ascites or free air. No inguinal hernia. The lumbar vertebrae have normal alignment. No compression fracture. There is multilevel degenerative disc space narrowing in the lumbar spine. Bony pelvis is intact. The hip joints are intact. IMPRESSION: Mild interstitial infiltrates and atelectasis at the lung bases without change. No acute abnormality within the abdomen pelvis. Constipation. There is retained fecal material in the rectum and in the re st of the colon.
[2021-11-04] MEDS ORDERED: MAGNESIUM CITRATE 296 ML BOTTLE PO ONE (00:36)
== END 2021-11-04 01:26 | disposition home or self-care (01) ==
LOC: EC 16:27
DX: E86.0 Dehydration (principal); I10 Essential (primary) hypertension; E78.5 Hyperlipidemia, unspecified; Z86.73 Personal history of transient ischemic attack (TIA), and cerebral infarction without residual deficits; Z88.5 Allergy status to narcotic agent
CPT/HCPCS: 36415; 51798; 72131; 74176; 80048; 81001; 85025; 96360; 99284

== ENCOUNTER 2021-11-25 13:13 | Inpatient (IN) | payer MEDICARE, BC ==
--- NOTE | 2021-11-25 13:30 | CT ---
EXAMINATION TYPE: CT brain wo con for TPA CT DLP: 1098.6 mGycm, Automated exposure control for dose reduction was used. DATE OF EXAM: 11/25/2021 1:23 PM COMPARISON: 10/31/2021. CLINICAL INDICATION:Male, 86 years old with history of Neuro deficit, acute, stroke suspected, starte d Rt side weakness, now on the Lt. History of bleed TECHNIQUE: Brain: Axial CT images of the brain were obtained with coronal and sagittal reformats created and rev iewed. Contrast used: None. Oral contrast used: None. FINDINGS: Brain: Extra-axial spaces: No abnormal extra-axial fluid collections. Ventricular system: Dilatation in proportion to cerebral atrophy. Cerebral parenchyma: Cerebral atrophy. No acute intraparenchymal hemorrhage or mass effect. The avitia -white junction is well differentiated. Scattered hypoattenuating areas are seen within the white mat ter. Cerebellum: Cerebellar atrophy Mass effect: No evidence of midline shift. Intracranial vasculature: Atherosclerotic calcifications of the intracranial vessels. Soft tissues: Normal. Calvarium/osseous structures: No depressed skull fracture. Postsurgical changes to the calvarium. Paranasal sinuses and mastoid air cells: Mild scattered paranasal sinus disease. Visualized orbits: Senile calcific scleral plaques are present. Senile calcific scleral plaques are p resent. IMPRESSION: 1. No acute intracranial process. 2. Nonspecific white matter changes, likely secondary to chronic small vessel ischemic disease.
[2021-11-25 13:38] LABS: Glucose,Whole Blood 93 mg/dL (70-110)
[2021-11-25 14:00] LABS: Basophils % (A) 0 %; Eosinophils # (A) 0.2 k/uL (0-0.7); Eosinophils % (A) 1 %; HGB 12.5 gm/dL (13.0-17.5); Lymphocytes # (A) 1.2 k/uL (1.0-4.8); Lymphocytes % (A) 9 %; MCH 31.7 pg (25.0-35.0); MCHC 32.1 g/dL (31.0-37.0); MCV 98.7 fL (80.0-100.0); Mean Platelet Volume 8.6; Monocytes % (A) 8 %; Neutrophils # (A) 10.5 k/uL (1.3-7.7); Neutrophils % (A) 80 %; Platelet Count 246 k/uL (150-450); RBC 3.95 m/uL (4.30-5.90); RDW 13.9 % (11.5-15.5); WBC 13.2 k/uL (3.8-10.6)
[2021-11-25 14:03] LABS: INR 0.9 (<1.2); Partial Thromboplastin Time 24.2 sec (22.0-30.0)
[2021-11-25 14:06] LABS: ALT 9 U/L (4-49); AST 14 U/L (17-59); African American GFR (CKD) >90 (>60 ml/min/1.73 sqM); Albumin 3.2 g/dL (3.5-5.0); Alkaline Phosphatase 81 U/L (38-126); Anion Gap 6 mmol/L; Blood Urea Nitrogen 20 mg/dL (9-20); Calcium 8.4 mg/dL (8.4-10.2); Carbon Dioxide 25 mmol/L (22-30); Chloride 108 mmol/L (98-107); Glucose 100 mg/dL (74-99); Non-African American GFR(CKD) 79 (>60 ml/min/1.73 sqM); Sodium 139 mmol/L (137-145); Total Bilirubin 0.5 mg/dL (0.2-1.3); Total Protein 5.9 g/dL (6.3-8.2)
--- NOTE | 2021-11-25 14:35 | CT ---
EXAMINATION TYPE: CT angio head neck CT DLP: 453.8 mGycm, Automated exposure control for dose reduction was used. DATE OF EXAM: 11/25/2021 2:25 PM COMPARISON: CT brain same day. CLINICAL INDICATION:Male, 86 years old with history of Neuro deficit, acute, stroke suspected; TECHNIQUE: Axially acquired helical CT angiogram of the head and neck was obtained with contrast. Axi al images are supplemented with 3D reconstructions which [facility] NASCET criteria used. Contrast used:65 ML mL of Isovue 370 with IV Contrast, Oral contrast used: None. FINDINGS: CTA HEAD: No evidence of acute intracranial hemorrhage, mass effect, or midline shift. The ventricles, sulci, a nd cisterns are unremarkable. The visualized portions of the internal carotid arteries, middle cerebral arteries, anterior cerebral arteries, and posterior cerebral arteries are patent. The basilar and vertebral arteries are patent. Scattered atherosclerosis of the vertebral arteries. P ostsurgical changes to the colin. CTA NECK: Right Carotid System: The common carotid artery and external carotid artery are patent. The carotid bifurcation demonstrate s no evidence of hemodynamically significant stenosis. The remaining portions of the internal carotid artery demonstrate normal size without significant narrowing. Left Carotid System: The common carotid artery and external carotid artery are patent. The carotid bifurcation demonstrate s no evidence of hemodynamically significant stenosis. The remaining portions of the internal carotid artery demonstrate normal size without significant narrowing. Vertebral arteries are patent without evidence hemodynamically significant stenosis. Scattered athero sclerosis of the vertebral arteries. There is a three-vessel aortic arch. The origins of the great vessels are patent. No evidence of hemo dynamically significant stenosis. Airspace opacities are seen partially within the upper lobes bilaterally. IMPRESSION: 1. No evidence of dissection of the cervical internal carotid arteries or vertebral arteries or any e vidence of significant stenosis at the carotid bifurcations. 2. No evidence of high-grade stenosis or intracranial aneurysm. 3. Airspace opacities partially visualized correlate for pneumonia.
--- NOTE | 2021-11-25 14:48 | XR ---
EXAMINATION TYPE: XR chest 1V portable DATE OF EXAM: 11/25/2021 COMPARISON: Chest x-ray October 28, 2021 HISTORY: Altered mental status and weakness. TECHNIQUE: Single AP portable frontal upright view of the chest is obtained. FINDINGS: There is low lung volumes redemonstrated. Stable mild cardiomegaly with increased central markings on current study. No pleural effusion or pneumothorax noted. Metallic hardware from right sh oulder surgery is partially imaged. IMPRESSION: Low lung volumes and mild cardiomegaly redemonstrated with new mild interstitial edema r aising concern for fluid overload state and/or CHF exacerbation. Correlate clinically.
[2021-11-25 14:58] LABS: Appearance,Urine Clear (Clear); Bilirubin,Urine Negative (Negative); Blood,Urine Small (Negative); Color,Urine Yellow; Glucose,Urine (UA) Negative (Negative); Hyaline Casts,Urine 1 /lpf (0-2); Ketones,Urine Negative (Negative); Leukocyte Esterase,Urine Negative (Negative); Mucus,Urine Few /hpf; Nitrite,Urine Negative (Negative); Protein,Urine Trace (Negative); RBC,Urine 16 /hpf (0-5); Specific Gravity,Urine 1.037 (1.001-1.035); WBC,Urine 2 /hpf (0-5)
--- NOTE | 2021-11-25 14:58 | XR ---
Abdomen HISTORY: Diarrhea, renal carcinoma Frontal abdomen submitted, comparison to CT 11/03/2021 Bilateral kidneys are excreting contrast, there is contrast material within the urinary bladder. Mult iple calcifications are present within the bladder, bladder is not distended. There is a stimulator s uperimposed over the left hip, lead courses along the sacral region. Spina bifida occulta noted at S1 . Penile prosthesis noted incidentally. Bone mineralization is reduced. There is a spinal curvature. Degenerative disc changes are present in the visualized spine. No evident bowel obstruction or pneumo peritoneum. IMPRESSION: Retained contrast from prior contrast-enhanced exam within the urinary system.
--- NOTE | 2021-11-25 15:09 | ED ---
General Adult HPI - General Chief complaint: Neuro Symptoms/Deficit Stated complaint: stroke Time Seen by Provider: 11/25/21 13:17 Source: EMS, RN notes reviewed, old records reviewed Mode of arrival: EMS Limitations: no limitations - History of Present Illness Initial comments: Patient Is a 86-year-old male with past medical history remarkable for prior CVA, prior subdural hemorrhage, prior blood thinner use, who has a history of dementia, hypertension, presents emergency department over concern for altered mental status and strokelike symptoms. Last known well was approximately 11:30 AM. Nursing staff noticed he was weak on the left side. They called EMS. Brought here for possible stroke activation. Sukh alteplase was called prior to arrival. Patient is a limited historian. Unable to provide much history. Appears to have left-sided facial deficits, as well as left-sided weakness. Presents for further evaluation at this time. Denies any acute complaints. - Related Data Home Medications Medication Instructions Recorded Confirmed Famotidine [Pepcid] 40 mg PO DAILY@79901/16/18 11/25/21 Donepezil 23mg 23 mg PO DAILY@79903/15/21 11/25/21 cloNIDine HCL 0.1 mg PO HS@199903/15/21 11/25/21 levETIRAcetam [Keppra] 500 mg PO BID@799,199903/15/21 11/25/21 Atorvastatin [Lipitor] 20 mg PO HS@199904/21/21 11/25/21 Cyanocobalamin [Vitamin B-12 2,000 mcg SQ Q30D 05/17/21 11/25/21 Injection] Sertraline [Zoloft] 25 mg PO DAILY@79910/28/21 11/25/21 risperiDONE [RisperDAL] 1 mg PO HS@199911/03/21 11/25/21 Lidocaine 5% Oint [Xylocaine 5% 1 applic TOPICAL TID@0800,1399,199911/25/21 11/25/21 Oint] Allergies Allergy/AdvReac Type Severity Reaction Status Date / Time codeine AdvReac vomiting Verified 11/25/21 14:17 and passed out Review of Systems ROS Statement: Those systems with pertinent positive or pertinent negative responses have been documented in the HPI. Review of Systems: CONST: Denies fever EYES: Denies blurry vision ENT: Denies nasal congestion C/V: Denies Chest pain RESP: Denies shortness of breath GI: Denies abdominal pain : Denies dysuria SKIN: Denies rash. MSK: Denies joint pain. NEURO: Denies headache ROS Other: All systems not noted in ROS Statement are negative. Past Medical History Past Medical History: Cancer, CVA/TIA, GERD/Reflux, Hyperlipidemia, Hypertension Additional Past Medical History / Comment(s): kidney ca, brain hematoma History of Any Multi-Drug Resistant Organisms: None Reported Past Surgical History: Joint Replacement, Orthopedic Surgery Additional Past Surgical History / Comment(s): LT rotator cuff, BILAT knee replacement, RT kidney SX , bladder stimulator, MULTIPLE sinus SX , RT REVERSE SHOULDER, COLONOSCOPY, BILAT CATARACT SX, TURP, PENILE IMPLANT, RECTOCELE, HEMORRHOID SX, jerome holes in skull for hematoma Past Anesthesia/Blood Transfusion Reactions: No Reported Reaction Past Psychological History: No Psychological Hx Reported Smoking Status: Never smoker, Unknown if ever smoked Past Alcohol Use History: Daily Past Drug Use History: None Reported - Past Family History Mother Family Medical History: CVA/TIA Father Family Medical History: Cancer Sister(s) Family Medical History: Cancer Son(s) Family Medical History: Cancer Daughter(s) Family Medical History: Cancer Additional Family Medical History / Comment(s): 2 DAUGHTERS WITH CANCER General Exam - General Exam Comments Initial Comments: General: Appears in no acute distress. HEAD: Normal with no signs of head trauma. EYES: PERRLA, EOMI, conjunctiva normal, no discharge. Pupils 3 mm and equal bilaterally. ENT: Hearing grossly intact, normal oropharynx. Mild lower left-sided facial droop. RESPIRATORY: Clear breath sounds bilaterally. No wheezes, rales, or rhonchi. C/V: Regular rate and rhythm. S1 and S2 auscultated, no edema, peripheral puls es 2+ and intact throughout ABD: Abd is soft, nontender, nondistended EXT: Normal range of motion, no obvious deformity SKIN: No rashes or lesions observed on exposed skin. NEURO: Alert and oriented 2-3, which is patient's baseline per family. NIH is initially 15 for bilateral lower extremity deficits, as well as left-sided deficits putting dysarthria, left-sided facial droop, left-sided ataxia, left upper extremity weakness. GCS of 15. Limitations: no limitations Course Vital Signs 11/25/21 13:27 Temperature 97.9 F Pulse Rate 63 Respiratory 16 Rate Blood Pressure 134/86 O2 Sat by Pulse 96 Oximetry Medical Decision Making - Medical Decision Making Based on the patient's presentation and physical exam, I'm concerned for possible stroke. Falls within the TPA window, and therefore code alteplase was activated. NIH of 14-15. Last known well was 11:30 AM. Patient was immediately taken to computed tomography scan after confirming a normal blood glucose level. 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 At this time, I do believe this excludes him from a TPA candidate. I spoke with Dr. Lew neuro intervention and he will follow-up in the imaging was otherwise in agreement with this plan. TPA will not be administered. On return from CT scanner, NIH is now 0. 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 He is otherw ise acting normally. Baseline is alert and oriented 2-3. Vital signs within normal limits. We'll continue to monitor. Laboratory studies were remarkable for slight leukocytosis of 13. Patient has a mild normocytic anemia with a hemoglobin of 12.5. Troponin is undetectable. Urinalysis is within normal limits. Covid is negative. CT imaging of the brain showed no acute intracranial process. CT angiogram of the brain revealed no acute process. Chest x-ray revealed very mild interstitial edema that could be related to CHF exacerbation the correct clinical setting. Abdominal x-ray shows no obvious findings. On reevaluation, NIH remains 0. Vital signs remained within normal limits. After the patient's family that I would like to admit him for medical management for stroke. I explained he likely had a TIA. There were in agreement this plan. I did speak with Dr. Lew again, and he reviewed imaging and was in agreement with this plan. I spoke with Dr. Hauser neurology and consulted him, and he was in agreement this plan. Patient will be administered an aspirin. I spoke with the admitting team, Dr. rBock who accepted the patient. Patient was admitted in stable condition. - Lab Data Result diagrams: 11/25/21 13:38 11/25/21 13:38 Lab Results 11/25/21 11/25/21 11/25/21 Range/Units 13:28 13:38 13:38 WBC 13.2 H (3.8-10.6) k/uL RBC 3.95 L (4.30-5.90) m/uL Hgb 12.5 L (13.0-17.5) gm/dL Hct 39.0 (39.0-53.0) % MCV 98.7 (80.0-100.0) fL MCH 31.7 (25.0-35.0) pg MCHC 32.1 (31.0-37.0) g/dL RDW 13.9 (11.5-15.5) % Plt Count 246 (150-450) k/uL MPV 8.6 Neutrophils % 80 % Lymphocytes % 9 % Monocytes % 8 % Eosinophils % 1 % Basophils % 0 % Neutrophils # 10.5 H (1.3-7.7) k/uL Lymphocytes # 1.2 (1.0-4.8) k/uL Monocytes # 1.0 (0-1.0) k/uL Eosinophils # 0.2 (0-0.7) k/uL Basophils # 0.0 (0-0.2) k/uL PT 10.0 (9.0-12.0) sec INR 0.9 (<1.2) APTT 24.2 (22.0-30.0) sec Sodium (137-145) mmol/L Potassium (3.5-5.1) mmol/L Chloride (98-107) mmol/L Carbon Dioxide (22-30) mmol/L Anion Gap mmol/L BUN (9-20) mg/dL Creatinine (0.66-1.25) mg/dL Est GFR (CKD-EPI)AfAm (>60 ml/min/1.73 sqM) Est GFR (CKD-EPI)NonAf (>60 ml/min/1.73 sqM) Glucose (74-99) mg/dL POC Glucose (mg/dL) 93 (70-110) mg/dL POC Glu Bereavement Coordinator ID Matthew Barrett Plasma Lactic Acid Henry (0.7-2.0) mmol/L Calcium (8.4-10.2) mg/dL Total Bilirubin (0.2-1.3) mg/dL AST (17-59) U/L ALT (4-49) U/L Alkaline Phosphatase (38-126) U/L Troponin I (0.000-0.034) ng/mL Total Protein (6.3-8.2) g/dL Albumin (3.5-5.0) g/dL Coronavirus (PCR) (Not Detectd) 11/25/21 11/25/21 11/25/21 Range/Units 13:38 13:38 13:38 WBC (3.8-10.6) k/uL RBC (4.30-5.90) m/uL Hgb (13.0-17.5) gm/dL Hct (39.0-53.0) % MCV (80.0-100.0) fL MCH (25.0-35.0) pg MCHC (31.0-37.0) g/dL RDW (11.5-15.5) % Plt Count (150-450) k/uL MPV Neutrophils % % Lymphocytes % % Monocytes % % Eosinophils % % Basophils % % Neutrophils # (1.3-7.7) k/uL Lymphocytes # (1.0-4.8) k/uL Monocytes # (0-1.0) k/uL Eosinophils # (0-0.7) k/uL Basophils # (0-0.2) k/uL PT (9.0-12.0) sec INR (<1.2) APTT (22.0-30.0) sec Sodium 139 (137-145) mmol/L Potassium 4.0 (3.5-5.1) mmol/L Chloride 108 H (98-107) mmol/L Carbon Dioxide 25 (22-30) mmol/L Anion Gap 6 mmol/L BUN 20 (9-20) mg/dL Creatinine 0.81 (0.66-1.25) mg/dL Est GFR (CKD-EPI)AfAm >90 (>60 ml/min/1.73 sqM) Est GFR (CKD-EPI)NonAf 79 (>60 ml/min/1.73 sqM) Glucose 100 H (74-99) mg/dL POC Glucose (mg/dL) (70-110) mg/dL POC Glu Bereavement Coordinator ID Plasma Lactic Acid Henry 1.0 (0.7-2.0) mmol/L Calcium 8.4 (8.4-10.2) mg/dL Total Bilirubin 0.5 (0.2-1.3) mg/dL AST 14 L (17-59) U/L ALT 9 (4-49) U/L Alkaline Phosphatase 81 (38-126) U/L Troponin I <0.012 (0.000-0.034) ng/mL Total Protein 5.9 L (6.3-8.2) g/dL Albumin 3.2 L (3.5-5.0) g/dL Coronavirus (PCR) (Not Detectd) 11/25/21 Range/Units 13:38 WBC (3.8-10.6) k/uL RBC (4.30-5.90) m/uL Hgb (13.0-17.5) gm/dL Hct (39.0-53.0) % MCV (80.0-100.0) fL MCH (25.0-35.0) pg MCHC (31.0-37.0) g/dL RDW (11.5-15.5) % Plt Count (150-450) k/uL MPV Neutrophils % % Lymphocytes % % Monocytes % % Eosinophils % % Basophils % % Neutrophils # (1.3-7.7) k/uL Lymphocytes # (1.0-4.8) k/uL Monocytes # (0-1.0) k/uL Eosinophils # (0-0.7) k/uL Basophils # (0-0.2) k/uL PT (9.0-12.0) sec INR (<1.2) APTT (22.0-30.0) sec Sodium (137-145) mmol/L Potassium (3.5-5.1) mmol/L Chloride (98-107) mmol/L Carbon Dioxide (22-30) mmol/L Anion Gap mmol/L BUN (9-20) mg/dL Creatinine (0.66-1.25) mg/dL Est GFR (CKD-EPI)AfAm (>60 ml/min/1.73 sqM) Est GFR (CKD-EPI)NonAf (>60 ml/min/1.73 sqM) Glucose (74-99) mg/dL POC Glucose (mg/dL) (70-110) mg/dL POC Glu Bereavement Coordinator ID Plasma Lactic Acid Henry (0.7-2.0) mmol/L Calcium (8.4-10.2) mg/dL Total Bilirubin (0.2-1.3) mg/dL AST (17-59) U/L ALT (4-49) U/L Alkaline Phosphatase (38-126) U/L Troponin I (0.000-0.034) ng/mL Total Protein (6.3-8.2) g/dL Albumin (3.5-5.0) g/dL Coronavirus (PCR) Not Detected (Not Detectd) - EKG Data -: EKG Interpreted by Me EKG Comments: 12-lead Electrocardiogram Interpretation Note EKG was reviewed and interpreted by myself. 12-lead ECG performed at 1321 is interpreted by me as revealing normal sinus rhythm at a rate of at 63 beats per minute. [place] is normal. ND interval is 342 ms, QRS duration is 101 ms, QTc is 426 ms.. he has a first-degree AV block. There were no acute ST or T wave abnormalities to suggest myocardial ischemia or injury. R wave progression across the precordium was satisfactory. By my interpretation this EKG is non- diagnostic for acute ischemia. Critical Care Time Critical Care Time: Yes Total Critical Care Time: 35 Critical Care Time: Upon my evaluation, this patient had a high probability of imminent or life- threatening deterioration due to stroke activation, TIA which required my direct attention, intervention, and personal management. I have personally provided 35 minutes of critical care time exclusive of time spent on separately billable procedures. Time includes review of laboratory data, radiology results, discussion with consultants, and monitoring for potential decompensation. Interventions were performed as documented in my note. Disposition Clinical Impression: TIA (transient ischemic attack) Disposition: ADMITTED IP TO THIS HOSP Condition: Stable Referrals: Arnoldo Coronel MD [Primary Care Provider] - 1-2 days Time of Disposition: 15:05
[2021-11-25] MEDS ORDERED: ASPIRIN 325 MG TAB PO STA (15:20)
[2021-11-25] MEDS ORDERED: NALOXONE 0.4 MG/ML 1 ML VIAL IV PRN (18:10)
--- NOTE | 2021-11-25 18:13 | P.HPIM ---
History of Present Illness H&P Date: 11/25/21 Chief Complaint: Confusion Patient is an 86-year-old male with PMH of prior CVA with no residual weakness, prior subarachnoid hemorrhage, dementia, hypertension, dyslipidemia, depression that presents the ED from [facility] for altered mentation and unstable gait. Patient is an unreliable historian majority of documentation obtained from documentation, family and ED physician. Family reports being told around 4:25 AM the patient had a fall going to the bathroom. Around 11 AM he appeared to be disoriented and leaning towards one side which prompted the staff at [facility] to call EMS. Patient currently denies any complaints. He denies any headache, lower extremity edema, nausea vomiting, fever or chills, cough, chest pain, shortness of breath, palpitations, changes in urination or bowel habits. No changes in appetite or weight. He denies any dizziness, numbness/weakness/tingling of the extremities. In the ED, vital signs are stable, elevated BP of 181/99. CBC showed leukocytosis of 13.2 and hemoglobin of 12.5. Coagulation panel was negative. CMP showed chloride of 108, glucose 100. Lactic acid was negative. COVID-19 negative. Urinalysis negative for leukocyte esterase or nitrite. CT head showed no acute process, chronic small vessel ischemic disease. CTA head and neck showed no evidence of high-grade stenosis. Chest x-ray showed mild interstitial edema concerning for CHF. Patient is admitted for CVA workup with Neurology on consult. Review of systems is performed and is negative except above. General: [non toxic], [no distress], [appears at stated age] Derm: [warm], [dry] Head: [atraumatic], [normocephalic], [symmetric] Eyes: [EOMI], [no lid lag], [anicteric sclera] Mouth: [no lip lesion], [mucus membranes moist] Cardiovascular: [S1S2 reg], [no murmur] Lungs: [CTA bilateral], [no rhonchi, no rales] , [no accessory muscle use] Abdominal: [soft], [ nontender to palpation] Ext: [no gross muscle atrophy], [no edema], [no contractures] Neuro: [Unable to perform neurological exam due to mental status] Psych: [AO x 0-1] #Altered mental status with unstable gait #Leukocytosis #Normocytic anemia #Abnormal urinalysis Chronic conditions: History of subarachnoid hemorrhage, dementia, dyslipidemia, depression Patient presents with altered mentation and unstable gait. Per family, he is improving however he is still confused. They reports worsening dementia and hallucinations since his subdural hemorrhage. Patient will be placed on telemetry monitoring. Continue with advanced neurochecks. Echocardiogram and carotid Doppler ordered. A1c and lipid panel ordered. Speech therapy, PT and OT consulted. Neurology consulted for further management of this patient. Fall precautions ordered. Aspirin 325 mg by mouth administered. Continue Lipitor. Start aspirin 81 mg by mouth daily. Leukocytosis is mild and is of unknown origin. No signs of active infection. Anemia is mild and is of unknown origin. Continue to monitor. Urinalaysis is negative for nitrite and leukocyte esterase. He does not complain of dysuria. Restart Clonidine for hypertension. Lipitor for dyslipidemia. Aricept for history dementia. Pepcid for GERD. Keppra for seizure prophylaxis. Risperdal for hallucinations. Zoloft for depression. DVT prophylaxis: [Heparin] Discussed with: [Patient, family and ED physician] Anticipated discharge: [2 days] Anticipated discharge place: [[facility]] A total of [35] minutes was spent on the care of this complex patient more than 50% of the time was spent in counseling and care coordination. Patients daughter Patti is the decision maker if he cant make decisions for himself. Daughters agree patient should be NO CODE. Past Medical History Past Medical History: Cancer, CVA/TIA, GERD/Reflux, Hyperlipidemia, Hypertension Additional Past Medical History / Comment(s): kidney ca, brain hematoma History of Any Multi-Drug Resistant Organisms: None Reported Past Surgical History: Joint Replacement, Orthopedic Surgery Additional Past Surgical History / Comment(s): LT rotator cuff, BILAT knee replacement, RT kidney SX , bladder stimulator, MULTIPLE sinus SX , RT REVERSE SHOULDER, COLONOSCOPY, BILAT CATARACT SX, TURP, PENILE IMPLANT, RECTOCELE, HEMORRHOID SX, jerome holes in skull for hematoma Past Anesthesia/Blood Transfusion Reactions: No Reported Reaction Past Psychological History: No Psychological Hx Reported Smoking Status: Never smoker, Unknown if ever smoked Past Alcohol Use History: Daily Past Drug Use History: None Reported - Past Family History Mother Family Medical History: CVA/TIA Father Family Medical History: Cancer Sister(s) Family Medical History: Cancer Son(s) Family Medical History: Cancer Daughter(s) Family Medical History: Cancer Additional Family Medical History / Comment(s): 2 DAUGHTERS WITH CANCER Medications and Allergies Home Medications Medication Instructions Recorded Confirmed Type Famotidine [Pepcid] 40 mg PO DAILY@0801/16/18 11/25/21 History Donepezil 23mg 23 mg PO DAILY@79903/15/21 11/25/21 History cloNIDine HCL 0.1 mg PO HS@199903/15/21 11/25/21 History levETIRAcetam [Keppra] 500 mg PO BID@799,199903/15/21 11/25/21 History Atorvastatin [Lipitor] 20 mg PO HS@199904/21/21 11/25/21 History Cyanocobalamin [Vitamin B-12 2,000 mcg SQ Q30D 05/17/21 11/25/21 History Injection] Sertraline [Zoloft] 25 mg PO DAILY@79910/28/21 11/25/21 History risperiDONE [RisperDAL] 1 mg PO HS@199911/03/21 11/25/21 History Lidocaine 5% Oint [Xylocaine 5% 1 applic TOPICAL TID@0800,1399,199911/25/21 11/25/21 History Oint] Allergies Allergy/AdvReac Type Severity Reaction Status Date / Time codeine AdvReac vomiting Verified 11/25/21 14:17 and passed out Physical Exam Vitals: Vital Signs Temp Pulse Resp BP Pulse Ox 11/25/21 16:00 62 18 181/99 96 11/25/21 14:30 67 19 181/95 93 L 11/25/21 14:15 72 18 178/96 95 11/25/21 13:27 97.9 F 63 16 134/86 96 Intake and Output 11/25/21 11/25/21 11/25/21 06:59 14:59 22:59 Output Total 30 Balance -30 Output: Urine 30 Straight 30 Other: Weight 65.771 kg Results CBC & Chem 7: 11/25/21 13:38 11/25/21 13:38 Labs: Abnormal Lab Results - Last 24 Hours (Table) 11/25/21 11/25/2122 Range/Units 13:38 13:38 13:38 WBC 13.2 H (3.8-10.6) k/uL RBC 3.95 L (4.30-5.90) m/uL Hgb 12.5 L (13.0-17.5) gm/dL Neutrophils # 10.5 H (1.3-7.7) k/uL Chloride 108 H (98-107) mmol/L Glucose 100 H (74-99) mg/dL AST 14 L (17-59) U/L Total Protein 5.9 L (6.3-8.2) g/dL Albumin 3.2 L (3.5-5.0) g/dL Ur Specific [place] 1.037 H (1.001-1.035) Urine Protein Trace H (Negative) Urine Blood Small H (Negative) Urine RBC 16 H (0-5) /hpf Urine Mucus Few H (None) /hpf
[2021-11-25] MEDS ORDERED: cloNIDine HCL 0.1 MG TAB PO SCH (20:00)
[2021-11-25] MEDS: HEPARIN SODIUM,PORCINE/PF 5,000 UNIT/0.5 ML SYRINGE SQ SCH (20:24)
[2021-11-25] MEDS: ATORVASTATIN 20 MG TAB PO SCH (20:24)
[2021-11-25] MEDS: risperiDONE 1 MG TAB PO SCH (20:24)
[2021-11-25] MEDS: levETIRAcetam 500 MG TAB PO SCH (20:24)
--- NOTE | 2021-11-26 08:50 | US ---
EXAMINATION TYPE: US carotid duplex BILAT DATE OF EXAM: 11/26/2021 COMPARISON: NONE CLINICAL HISTORY: CVA workup. CVA TECHNIQUE: Carotid duplex ultrasound examination. Indirect Doppler criteria was utilized. FINDINGS: EXAM MEASUREMENTS: RIGHT: Peak Systolic Velocity (PSV) cm/sec ----- Right CCA: 41.1 ----- Right ICA: 54.0 ----- Right ECA: 75.5 ICA/CCA ratio: 1.31 RIGHT: End Diastole cm/sec ----- Right CCA: 6.2 ----- Right ICA: 9.3 ----- Right ECA: 0.0 LEFT: Peak Systolic Velocity (PSV) cm/sec ----- Left CCA: 63.7 ----- Left ICA: 75.5 ----- Left ECA: 87.4 ICA/CCA ratio: 1.19 LEFT: End Diastole cm/sec ----- Left CCA: 12.3 ----- Left ICA: 16.4 ----- Left ECA: 6.2 VERTEBRALS (direction of flow): Right Vertebral: Antegrade Left Vertebral: Antegrade Rhythm: Normal FEED PREPARATION OPERATOR NOTES: Mild plaque bilateral bifurcations. no evidence of increased velocities IMPRESSION: Less than 50% stenosis of the bilateral carotid bifurcations. Criteria for Assigning % of Stenosis / Diameter reduction (Estimation based on the indirect measurements of the internal carotid artery velocities (ICA PSV). 1. Normal (no stenosis)=ICA PSV < 125 cm/s: ratio < 2.0: ICA EDV<40 cm/s. 2. Less than 50% stenosis=ICA PSV < 125 cm/s: ratio < 2.0: ICA EDV<40 cm/s. 3. 50 to 69% stenosis=ICA PSV of 125 to 230 cm/s: ration 2.0 ? 4.0: ICA EDV 40-100 cm/s. 4. Greater than 70% stenosis to near occlusion= ICA PSV > 230 cm/s: ratio > 4.0: ICA EDV > 100 cm/s. 5. Near occlusion= ICA PSV velocities may be low or undetectable: variable ratio and ICA EDV. 6. Total occlusion=unable to detect flow.
[2021-11-26] MEDS ORDERED: VANCOMYCIN IV PER PHARMACY 1 EACH MISC MISCELLANE PRN (09:46)
[2021-11-26] MEDS: DONEPEZIL 10 MG TAB PO SCH (10:01)
[2021-11-26] MEDS: SERTRALINE 25 MG TAB PO SCH (10:01)
[2021-11-26] MEDS: HEPARIN SODIUM,PORCINE/PF 5,000 UNIT/0.5 ML SYRINGE SQ SCH ×2 (10:01→22:43)
[2021-11-26] MEDS: levETIRAcetam 500 MG TAB PO SCH ×2 (10:01→22:43)
[2021-11-26] MEDS: FAMOTIDINE 20 MG TAB PO SCH (10:01)
[2021-11-26] MEDS: ASPIRIN 81 MG PO SCH (10:01)
--- NOTE | 2021-11-26 10:02 | P.PN ---
Subjective Progress Note Date: 11/26/21 Subjective: Patient seen and examined. Patient continues to be confused. He is able to answer questions. Denies any chest pain, shortness of breath. He denies any cough, fevers or chills. Patient's blood cultures positive from gram-positive Physical exam: Vital signs stable General: [nontoxic], [no distress], [appears at stated age] Derm: [warm], [dry] Head: [atraumatic], [normocephalic], [symmetric] Eyes: [EOMI], [no lid lag], [anicteric sclera] Mouth: [no lip lesion], [mucus membranes moist] Cardiovascular: [S1S2 reg], [no murmur], Lungs: [CTA bilateral], [no rhonchi, no rales] , [no accessory muscle use] Abdominal: [soft], [ nontender to palpation], [no guarding], [no appreciable organomegaly] Ext: [no gross muscle atrophy], [no edema], [no contract Neuro: AAO 2. Psych: [Alert], [oriented], [appropriate affect] Telemetry reviewed-first degree AV block. Sinus pause of 1.8 seconds. Assessment: #Altered mental status with unstable gait # Gram positive bacteremia # ? PNA #Leukocytosis # First degree AV block #Normocytic anemia #Abnormal urinalysis Chronic conditions: History of subarachnoid hemorrhage, dementia, dyslipidemia, depression Plan: Patient presents with altered mentation and unstable gait. Per family, he is improving however he is still confused. They reports worsening dementia and hallucinations since his subdural hemorrhage. Patient will be placed on telemetry monitoring. Continue with advanced neurochecks. Echocardiogram and carotid Doppler ordered. A1c and lipid panel ordered. Speech therapy, PT and OT consulted. Neurology consulted for further management of this patient. Fall precautions ordered. Continue aspirin 81 mg daily Continue atorvastatin 20 mm daily Repeat blood cultures 2 sets We'll await morning CBC, CMP, Check pro calcitonin, lactic acid, ammonia We'll start the patient on vancomycin and ceftriaxone until results of blood cultures are obtained Restart Clonidine for hypertension. Aricept for history dementia. Pepcid for GERD. Keppra for seizure prophylaxis. Risperdal for hallucinations. Zoloft for depression. Neuro evaluation pending Objective - Vital Signs Vital signs: Vital Signs Temp 98.0 F 11/26/21 04:00 Pulse 73 11/26/21 04:00 Resp 18 11/26/21 04:00 BP 140/84 11/26/21 04:00 Pulse Ox 94 L 11/26/21 04:00 FiO2 Intake & Output 11/25/21 11/26/21 11/26/21 18:59 06:59 18:59 Intake Total 240 Output Total 30 300 Balance -30 -60 Weight 65.771 kg 65.771 kg Intake: Oral 240 Output: Urine 30 300 Straight 30 Other: Voiding Method Urinal - Labs CBC & Chem 7: 11/25/21 13:38 11/25/21 13:38 Labs: Abnormal Lab Results - Last 24 Hours (Table) 11/25/21 11/25/21 11/25/21 Range/Units 13:38 13:38 13:38 WBC 13.2 H (3.8-10.6) k/uL RBC 3.95 L (4.30-5.90) m/uL Hgb 12.5 L (13.0-17.5) gm/dL Neutrophils # 10.5 H (1.3-7.7) k/uL Chloride 108 H (98-107) mmol/L Glucose 100 H (74-99) mg/dL AST 14 L (17-59) U/L Total Protein 5.9 L (6.3-8.2) g/dL Albumin 3.2 L (3.5-5.0) g/dL Ur Specific [place] 1.037 H (1.001-1.035) Urine Protein Trace H (Negative) Urine Blood Small H (Negative) Urine RBC 16 H (0-5) /hpf Urine Mucus Few H (None) /hpf Microbiology - Last 24 Hours (Table) 11/25/21 13:38 Blood Culture - Final Blood
[2021-11-26 10:18] LABS: ALT 10 U/L (4-49); AST 15 U/L (17-59); African American GFR (CKD) >90 (>60 ml/min/1.73 sqM); Alkaline Phosphatase 85 U/L (38-126); Anion Gap 7 mmol/L; Blood Urea Nitrogen 18 mg/dL (9-20); Calcium 8.6 mg/dL (8.4-10.2); Carbon Dioxide 22 mmol/L (22-30); Chloride 107 mmol/L (98-107); Glucose 88 mg/dL (74-99); Non-African American GFR(CKD) 90 (>60 ml/min/1.73 sqM); Potassium 4.3 mmol/L (3.5-5.1); Sodium 136 mmol/L (137-145); Total Bilirubin 0.6 mg/dL (0.2-1.3); Total Protein 5.8 g/dL (6.3-8.2)
[2021-11-26] MEDS: SODIUM CHLORIDE 0.9% 1,000 ML IV SCH (10:32)
[2021-11-26 10:34] LABS: Basophils % (A) 0 %; Eosinophils # (A) 0.1 k/uL (0-0.7); Eosinophils % (A) 1 %; HCT 37.7 % (39.0-53.0); HGB 12.1 gm/dL (13.0-17.5); Lymphocytes # (A) 0.9 k/uL (1.0-4.8); Lymphocytes % (A) 8 %; MCH 31.5 pg (25.0-35.0); MCHC 32.1 g/dL (31.0-37.0); MCV 98.4 fL (80.0-100.0); Mean Platelet Volume 8.3; Monocytes # (A) 0.9 k/uL (0-1.0); Monocytes % (A) 8 %; Neutrophils # (A) 8.7 k/uL (1.3-7.7); Neutrophils % (A) 81 %; Platelet Count 235 k/uL (150-450); RBC 3.83 m/uL (4.30-5.90); RDW 13.6 % (11.5-15.5); WBC 10.8 k/uL (3.8-10.6)
[2021-11-26 10:41] LABS: African American GFR (CKD) >90 (>60 ml/min/1.73 sqM); Albumin 2.9 g/dL (3.5-5.0); Anion Gap 5 mmol/L; Blood Urea Nitrogen 17 mg/dL (9-20); Carbon Dioxide 24 mmol/L (22-30); Chloride 107 mmol/L (98-107); Glucose 92 mg/dL (74-99); Non-African American GFR(CKD) >90 (>60 ml/min/1.73 sqM); Sodium 136 mmol/L (137-145); Total Protein 5.7 g/dL (6.3-8.2)
[2021-11-26 10:42] LABS: ALT 9 U/L (4-49); AST 14 U/L (17-59); Alkaline Phosphatase 75 U/L (38-126); Calcium 8.3 mg/dL (8.4-10.2); Total Bilirubin 0.6 mg/dL (0.2-1.3)
[2021-11-26 10:51] LABS: Lactic Acid, Venous 0.8 mmol/L (0.7-2.0)
[2021-11-26] MEDS: VANCOMYCIN 1,000 MG in SODIUM CHLORIDE 0.9% 250 ML IVPB SCH (13:37)
--- NOTE | 2021-11-26 14:00 | P.CNNES ---
History of Present Illness Consult date: 11/26/21 Requesting physician: Timothy Vidales Reason for Consult: TIA History of Present Illness: This is an 86-year-old gentleman with medical history of recurrent falls, subdural hemorrhage was on the blood thinner in the past post jerome holes, dementia, hypertension who presented emergency department for altered mental status and left-sided weakness. History is obtained from ED physician and medical records. Per the ED physician he stated that per the nursing staff they felt the patient's left side was weak as a result EMS was called. Last normal normal was 11:30 AM yesterday. According to patient he stated that his left upper extremity is weak and that old but he's not the best historian at this moment. Patient could not tell me what was new only wanted is to get out of bed and uses the bathroom and urinate. Some of the patient's home medication consists of Keppra 500 mg 1 tablet twice a day, Lipitor 20 mg daily at bedtime. Aricept 23 mg daily, Restoril all, Zoloft, vitamin B12. Of note I personally saw the patient last in our facility on 10/30/2021 and was consulted for confusion. At that time his baseline was oriented [address] as well as she has type II dens fracture seen on the CT which was similar compared to that 2020. At that time he was also on Keppra 500 mg 1 tablet twice a day. Patient had vitamin B12 which was 361 the serum folate was 15.7 and TSH was 1.880. The EEG was also performed during that time is reported as mild encephalopathy due to cerebral dysfunction can be seen with the physical with encephalopathy or medication effect. No seizure was seen. At that time I did not appreciate any left upper extremity weakness according to my notes. Some other workup in our facility during this hospital visit consisted of: Patient is afebrile Initial white blood cells 13.2 thousand and the repeat his 10.8. AST and ALT is within normal limits Calcium is 8.6 initial serum glucose in our facility is 100. Milly Zaman's are is not detected. Urine analysis is negative for urinary tract infection CT of the head is reported as no acute intracranial process. Nonspecific white matter changes, likely secondary to chronic small vessel ischemic disease. I personally reviewed the CT of the head and there is no acute or subacute ischemia. There is no and parenchymal hemorrhage at. The patient does have old skull defect from old surgery likely from the his history of subdural. CT angiography is reported as no evidence of dissection of the cervical internal carotid arteries or vertebral arteries or any evidence of significant stenosis at the carotid bifurcation. No evidence of high-grade stenosis or intracranial aneurysm. Airspace opacities are severely visualize correlate for pneumonia. Carotid duplex is reported as less than 50% stenosis of bilateral carotid bifurcation Review of Systems Review of system: The 12 point system was reviewed and apparent positive and negative per HPI. Past Medical History Past Medical History: Cancer, CVA/TIA, GERD/Reflux, Hyperlipidemia, Hypertension Additional Past Medical History / Comment(s): kidney ca, brain hematoma History of Any Multi-Drug Resistant Organisms: None Reported Past Surgical History: Joint Replacement, Orthopedic Surgery Additional Past Surgical History / Comment(s): LT rotator cuff, BILAT knee replacement, RT kidney SX , bladder stimulator, MULTIPLE sinus SX , RT REVERSE SHOULDER, COLONOSCOPY, BILAT CATARACT SX, TURP, PENILE IMPLANT, RECTOCELE, HEMORRHOID SX, jerome holes in skull for hematoma Past Anesthesia/Blood Transfusion Reactions: No Reported Reaction Past Psychological History: No Psychological Hx Reported Smoking Status: Never smoker, Unknown if ever smoked Past Alcohol Use History: Daily Additional Past Alcohol Use History / Comment(s): QUIT SMOKING 40-45 YEARS AGO Past Drug Use History: None Reported - Past Family History Mother Family Medical History: CVA/TIA Father Family Medical History: Cancer Sister(s) Family Medical History: Cancer Son(s) Family Medical History: Cancer Daughter(s) Family Medical History: Cancer Additional Family Medical History / Comment(s): 2 DAUGHTERS WITH CANCER Medications and Allergies Home Medications Medication Instructions Recorded Confirmed Type Famotidine [Pepcid] 40 mg PO DAILY@00 01/16/18 11/25/21 History Donepezil 23mg 23 mg PO DAILY@79903/15/21 11/25/21 History cloNIDine HCL 0.1 mg PO HS@199903/15/21 11/25/21 History levETIRAcetam [Keppra] 500 mg PO BID@799,199903/15/21 11/25/21 History Atorvastatin [Lipitor] 20 mg PO HS@199904/21/21 11/25/21 History Cyanocobalamin [Vitamin B-12 2,000 mcg SQ Q30D 05/17/21 11/25/21 History Injection] Sertraline [Zoloft] 25 mg PO DAILY@0810/28/21 11/25/21 History risperiDONE [RisperDAL] 1 mg PO HS@199911/03/21 11/25/21 History Lidocaine 5% Oint [Xylocaine 5% 1 applic TOPICAL TID@0800,1400,199911/25/21 11/25/21 History Oint] Allergies Allergy/AdvReac Type Severity Reaction Status Date / Time codeine AdvReac vomiting Verified 11/25/21 14:17 and passed out Physical Examination - Vital Signs Vital Signs: Vital Signs Temp Pulse Pulse Resp BP BP Pulse Ox 11/26/21 04:00 98.0 F 73 18 140/84 94 L 11/26/21 00:00 97.6 F 70 18 130/84 94 L 11/25/21 20:00 98.2 F 72 18 137/89 93 L 11/25/21 19:54 98.2 F 72 18 137/89 93 L 11/25/21 18:25 67 18 176/82 94 L 11/25/21 16:00 62 18 181/99 96 11/25/21 14:30 67 19 181/95 93 L 11/25/21 14:15 72 18 178/96 95 11/25/21 13:27 97.9 F 63 16 134/86 96 Intake and Output 11/25/21 11/26/21 11/26/21 22:59 06:59 14:59 Intake Total 240 Output Total 300 Balance -60 Intake: Oral 240 Output: Urine 300 Other: Voiding Method Urinal Urinal Weight 65.771 kg GENERAL: The patient is lying in bed and not in acute distress. CHEST: The heart rate is regular rate rhythm. No murmurs to auscultation. LUNG: Clear to auscultation bilaterally no wheezing noted throughout. Not labored breathing. ABDOMEN/GI: Bowel sounds present in all 4 quadrants. No tenderness to palpation throughout. NEUROLOGICAL: Higher mental function: The patient is awake, alert, oriented to self. He stated he was in the hospital but could not tell me name. He stated the year is 2022. He correctly name objects (pen and watch). Patient is following some simple commands. Language is limited but no apparent aphasia or neglect. Cranial nerves: The pupils are round, equal and reactive to light. Visual bundy are full to confrontation throughout. Mild left lower facial droop. Mild to moderate dyarthria (per nurse old). Rest is limited because of his condition. Motor: The strength is had to use his right hand to support his left upper extremity above gravity. Otherwise lifting all extremities above gravity (besides left upper extremity it seems no focality but hard to assess because of cooperation). Decrease tone over the left upper. Normal bulk. Cerebellum: Unable to assess because of cooperation. Sensation: Unable to assess. Reflexes (right/left):Unable to assess. Results - Laboratory Findings CBC and BMP: 11/26/21 10:05 11/26/21 10:05 Abnormal Lab Findings: Abnormal Labs 11/25/21 11/25/21 11/25/21 13:38 13:38 13:38 WBC 13.2 H RBC 3.95 L Hgb 12.5 L Hct Neutrophils # 10.5 H Lymphocytes # Sodium Chloride 108 H Creatinine Glucose 100 H Calcium AST 14 L Total Protein 5.9 L Albumin 3.2 L Ur Specific [place] 1.037 H Urine Protein Trace H Urine Blood Small H Urine RBC 16 H Urine Mucus Few H 11/26/21 11/26/21 11/26/21 09:23 10:05 10:05 WBC 10.8 H RBC 3.83 L Hgb 12.1 L Hct 37.7 L Neutrophils # 8.7 H Lymphocytes # 0.9 L Sodium 136 L 136 L Chloride Creatinine 0.61 L 0.58 L Glucose Calcium 8.3 L AST 15 L 14 L Total Protein 5.8 L 5.7 L Albumin 3.0 L 2.9 L Ur Specific [place] Urine Protein Urine Blood Urine RBC Urine Mucus Assessment and Plan Assessment: Encephalopathy of unknown etiology but seem due to underlying infection such as pneumonia seen on x-ray vs sepsis. Blood culture is gram positive cocci Rule out seizure. On examination he seems back to baseline (oriented X2, self and place). Acute left-sided weakness (on examination he had left facial droop and left upper extremity weakness and he stated this is not new). Unsure onset of his symptoms. Rule out stroke Possible pneumonia on CT History of old stroke History of subdural hemorrhage and was on blood thinners in the past Reported history of dementia Plan: He is currently on aspirin 81 mg and Lipitor 20 mg which is sufficient for secondary stroke prophylaxis We'll repeat a CT of the head by tomorrow since MRI cannot be done this weekend which is 48 hours from his initial presentation to rule out any ischemic stroke. There is still a concern for stroke and CT does not reveal a stroke and consider MRI of the brain if the patient is able to lie still for it. 2-D echo, lipid panel, hemoglobin A1c is ordered and is pending Ammonia level is less than 9. Vitamin B12, folate and SH does not need to be repeated since it was done about a month ago. Patient is on vitamin B12 supplement at home. Continue neuro checks PT OT ANIMAL CARE SUPERVISOR are consulted We'll defer the rest of the medical management to primary team For DVT prophylaxis he is on subcu heparin. Plan discussed with the patient's nurse. Nurse stated that once his family comes in she'll get more information regarding his left upper extremity and baseline. Thank you for the consultation. Korey Jackson M.D. Neuro-hospitalist Time with Patient: Greater than 30
[2021-11-26] MEDS: ATORVASTATIN 20 MG TAB PO SCH (22:43)
[2021-11-26] MEDS: risperiDONE 1 MG TAB PO SCH (22:43)
[2021-11-27] MEDS: VANCOMYCIN 1,000 MG in SODIUM CHLORIDE 0.9% 250 ML IVPB SCH (07:28)
[2021-11-27] MEDS: SODIUM CHLORIDE 0.9% 1,000 ML IV SCH ×2 (07:29→18:48)
--- NOTE | 2021-11-27 08:32 | P.PN ---
Subjective Progress Note Date: 11/27/21 Subjective: Patient seen and examined. Sleeping comfortably in bed this morning and awakens to verbal stimuli and answers questions. Denies any chest pain, shortness of breath. He denies any cough, fevers or chills. Physical exam: Vital signs stable General: [nontoxic], [no distress], [appears at stated age] Derm: [warm], [dry] Head: [atraumatic], [normocephalic], [symmetric] Eyes: [EOMI], [no lid lag], [anicteric sclera] Mouth: [no lip lesion], [mucus membranes moist] Cardiovascular: [S1S2 reg], [no murmur], Lungs: [Equal air entry bilaterally, [positive rales right base] , [no accessory muscle use] Abdominal: [soft], [ nontender to palpation], [no guarding], [no appreciable organomegaly] Ext: [no gross muscle atrophy], [no edema], [no contract Neuro: AAO 2. Psych: [Alert], [oriented], [appropriate affect] Telemetry reviewed-first degree AV block. Nonsustained VT. No definite evidence of A. fib. PACs with artifacts. Assessment: #Altered mental status with unstable gait # Gram positive bacteremia - likely contaminant # PNA- HAP #Leukocytosis # First degree AV block #Nonsustained VT #Normocytic anemia #Abnormal urinalysis Chronic conditions: History of subarachnoid hemorrhage, dementia, dyslipidemia, depression Plan: Patient presents with altered mentation and unstable gait. Per family, he is improving however he is still confused. They reports worsening dementia and hallucinations since his subdural hemorrhage. Patient will be placed on telemetry monitoring. Continue with advanced neurochecks. Echocardiogram and carotid Doppler ordered. A1c and lipid panel ordered. Speech therapy, PT and OT consulted. Neurology consulted for further management of this patient. Fall precautions ordered. Continue aspirin 81 mg daily Continue atorvastatin 20 mm daily Repeat blood cultures 2 sets We'll await morning CBC, CMP, Patient's pro calcitonin is elevated. We'll treat him for hospital-acquired pneumonia. Patient was admitted to the hospital last month. Continue vancomycin and Zosyn Sputum culture Restart Clonidine for hypertension. Aricept for history dementia. Pepcid for GERD. Keppra for seizure prophylaxis. Risperdal for hallucinations. Zoloft for depression. Neuro recommendations. Objective - Vital Signs Vital signs: Vital Signs Temp 98.4 F 11/27/21 04:00 Pulse 73 11/27/21 04:00 Resp 18 11/27/21 04:00 BP 176/80 11/27/21 04:00 Pulse Ox 92 L 11/27/21 04:00 FiO2 Intake & Output 11/26/21 11/27/21 11/27/21 18:59 06:59 18:59 Output Total 200 650 Balance -200 -650 Output: Urine 200 650 Other: Voiding Method Urinal Urinal - Labs CBC & Chem 7: 11/26/21 10:05 11/26/21 10:05 Labs: Abnormal Lab Results - Last 24 Hours (Table) 11/26/21 11/26/21 11/26/21 Range/Units 09:23 10:05 10:05 WBC 10.8 H (3.8-10.6) k/uL RBC 3.83 L (4.30-5.90) m/uL Hgb 12.1 L (13.0-17.5) gm/dL Hct 37.7 L (39.0-53.0) % Neutrophils # 8.7 H (1.3-7.7) k/uL Lymphocytes # 0.9 L (1.0-4.8) k/uL Sodium 136 L (137-145) mmol/L Creatinine 0.61 L (0.66-1.25) mg/dL Calcium (8.4-10.2) mg/dL AST 15 L (17-59) U/L Total Protein 5.8 L (6.3-8.2) g/dL Albumin 3.0 L (3.5-5.0) g/dL Procalcitonin 0.55 H (0.02-0.09) ng/mL 11/26/21 Range/Units 10:05 WBC (3.8-10.6) k/uL RBC (4.30-5.90) m/uL Hgb (13.0-17.5) gm/dL Hct (39.0-53.0) % Neutrophils # (1.3-7.7) k/uL Lymphocytes # (1.0-4.8) k/uL Sodium 136 L (137-145) mmol/L Creatinine 0.58 L (0.66-1.25) mg/dL Calcium 8.3 L (8.4-10.2) mg/dL AST 14 L (17-59) U/L Total Protein 5.7 L (6.3-8.2) g/dL Albumin 2.9 L (3.5-5.0) g/dL Procalcitonin (0.02-0.09) ng/mL Microbiology - Last 24 Hours (Table) 11/25/21 13:38 Blood Culture - Preliminary Blood No Growth after 24 hours 11/25/21 13:38 Blood Culture Gram Stain - Preliminary Blood Blood Culture - Preliminary Coagulase Negative Staph 11/25/21 13:38 Blood Culture - Final Blood
[2021-11-27] MEDS: ASPIRIN 81 MG PO SCH (08:53)
[2021-11-27] MEDS: levETIRAcetam 500 MG TAB PO SCH ×2 (08:53→21:49)
[2021-11-27] MEDS: FAMOTIDINE 20 MG TAB PO SCH (08:53)
[2021-11-27] MEDS: SERTRALINE 25 MG TAB PO SCH (08:54)
[2021-11-27] MEDS: HEPARIN SODIUM,PORCINE/PF 5,000 UNIT/0.5 ML SYRINGE SQ SCH ×2 (08:54→21:49)
[2021-11-27] MEDS: DONEPEZIL 10 MG TAB PO SCH (08:54)
[2021-11-27] MEDS: VANCOMYCIN 1,250 MG in SODIUM CHLORIDE 0.9% 250 ML IVPB SCH ×2 (09:22→21:49)
[2021-11-27 09:43] LABS: Basophils # (A) 0.1 k/uL (0-0.2); Basophils % (A) 0 %; Eosinophils # (A) 0.2 k/uL (0-0.7); Eosinophils % (A) 1 %; HCT 37.4 % (39.0-53.0); HGB 11.8 gm/dL (13.0-17.5); Lymphocytes # (A) 0.8 k/uL (1.0-4.8); Lymphocytes % (A) 8 %; MCH 30.6 pg (25.0-35.0); MCHC 31.4 g/dL (31.0-37.0); MCV 97.3 fL (80.0-100.0); Monocytes # (A) 0.9 k/uL (0-1.0); Monocytes % (A) 8 %; Neutrophils # (A) 8.6 k/uL (1.3-7.7); Neutrophils % (A) 81 %; Platelet Count 262 k/uL (150-450); RBC 3.85 m/uL (4.30-5.90); WBC 10.6 k/uL (3.8-10.6)
[2021-11-27 09:51] LABS: African American GFR (CKD) >90 (>60 ml/min/1.73 sqM); Anion Gap 4 mmol/L; Blood Urea Nitrogen 12 mg/dL (9-20); Calcium 8.2 mg/dL (8.4-10.2); Carbon Dioxide 25 mmol/L (22-30); Chloride 105 mmol/L (98-107); Glucose 97 mg/dL (74-99); Non-African American GFR(CKD) >90 (>60 ml/min/1.73 sqM); Potassium 3.8 mmol/L (3.5-5.1); Sodium 134 mmol/L (137-145)
--- NOTE | 2021-11-27 10:08 | CT ---
EXAMINATION TYPE: CT brain wo con CT DLP: 1099.4 mGycm, Automated exposure control for dose reduction was used. DATE OF EXAM: 11/27/2021 9:49 AM COMPARISON: CT brain 11/25/2021.. CLINICAL INDICATION:Male, 86 years old with history of left arm weakness, TECHNIQUE: Brain: Axial CT images of the brain were obtained with coronal and sagittal reformats created and rev iewed. Contrast used: None. Oral contrast used: None. FINDINGS: Brain: Extra-axial spaces: No abnormal extra-axial fluid collections. Ventricular system: Within normal limits Cerebral parenchyma: No acute intraparenchymal hemorrhage or mass effect. The avitia-white junction is well differentiated. Scattered hypoattenuating areas are seen within the white matter. Cerebellum: Unremarkable. Mass effect: No evidence of midline shift. Intracranial vasculature: Atherosclerotic calcifications of the intracranial vessels. Soft tissues: Normal. Calvarium/osseous structures: No depressed skull fracture. Postsurgical changes to the bilateral post erior skull. Paranasal sinuses and mastoid air cells: Mild scattered paranasal sinus disease. Visualized orbits: Senile calcific scleral plaques are present. Bilateral aphakia IMPRESSION: 1. No acute intracranial process. No change from prior. 2. Nonspecific white matter changes, likely secondary to chronic small vessel ischemic disease.
--- NOTE | 2021-11-27 11:15 | CA ---
Transthoracic Echo Report Name: Mickey Ha Age: 86 Gender: M : 1935 Exam Date: 11/26/2021 08:17 Exam Location: [place] [facility] Ht (in): 69 Wt (lb): 145 Ordering Physician: Odette Brock MD Attending/Referring Phys: [employer] Education Teacher Josefina Madden RDCS Procedure CPT: Indications: CVA workup Cardiac Hx: Technical Quality: Contrast 1: Total Dose (mL): Contrast 2: Total Dose (mL): MEASUREMENTS (Male / Female) Normal Values 2D ECHO LV Diastolic Diameter PLAX 4.8 cm 4.2 - 5.9 / 3.9 - 5.3 cm LV Systolic Diameter PLAX 4.0 cm IVS Diastolic Thickness 1.4 cm 0.6 - 1.0 / 0.6 - 0.9 cm LVPW Diastolic Thickness 1.4 cm 0.6 - 1.0 / 0.6 - 0.9 cm LV Relative Wall Thickness 0.6 LA Volume 73.7 cm??? 18 - 58 / 22 - 52 cm??? M-MODE Aortic Root Diameter MM 3.6 cm LA Systolic Diameter MM 3.6 cm LA Ao Ratio MM 1.0 MV E Point Septal Separation 1.3 cm AV Cusp Separation MM 1.7 cm DOPPLER MV Area PHT 2.7 cm??? Mitral E Point Velocity 51.7 cm/s Mitral A Point Velocity 80.2 cm/s Mitral E to A Ratio 0.6 MV Deceleration Time 282.9 ms MV E' Velocity 5.9 cm/s Mitral E to MV E' Ratio 8.8 FINDINGS Left Ventricle Left ventricular ejection fraction is estimated at 50-55 %. Right Ventricle Normal right ventricular size and function. Right Atrium Normal right atrial size. Left Atrium Moderately increased left atrial volume. Mitral Valve Structurally normal mitral valve. Mild mitral regurgitation. Aortic Valve Trileaflet aortic valve. Mild aortic regurgitation. Aortic valve sclerosis. Tricuspid Valve Structurally normal tricuspid valve. Pulmonic Valve Structurally normal pulmonic valve. Pericardium Normal pericardium. Aorta Normal size aortic root and proximal ascending aorta. CONCLUSIONS Technically difficult study for interpretation Normal left ventricular dimension and systolic function Severely sclerotic aortic valve with mild aortic regurgitation. The aortic valve poorly visualized. Mitral annular calcification Previewed by: Dr. Juno Troncoso MD (Electronically Signed) Final Date: 27 November 2021 11:14
[2021-11-27] MEDS: PIPERACILLIN-TAZOBACTAM 3.375 GM in SODIUM CHLORIDE 0.9% 100 ML IVPB SCH ×2 (12:00→17:43)
[2021-11-27 13:17] LABS: Chol/HDL Ratio 2.18 Ratio; LDL Cholesterol,Calculated 56.8 mg/dL (0.0-131.0); VLDL Calculation 12.58 mg/dL (5.00-40.00)
--- NOTE | 2021-11-27 14:11 | P.PN ---
Subjective Progress Note Date: 11/27/21 The patient is seen at bedside and is accompanied by his daughter who is at bedside who stated his left arm weakness is new and not old compared to what patient stated. She feels patient is somewhat more confused than baseline. But has been having dementia and hallucination since subdural hemorrhage. Objective - Vital Signs Vital signs: Vital Signs Temp 98.3 F 11/27/21 08:00 Pulse 56 L 11/27/21 08:00 Resp 18 11/27/21 08:00 BP 163/77 11/27/21 08:00 Pulse Ox 94 L 11/27/21 08:00 FiO2 Intake & Output 11/26/21 11/27/21 11/27/21 18:59 06:59 18:59 Output Total 200 650 Balance -200 -650 Output: Urine 200 650 Other: Voiding Method Urinal Urinal Urinal # Voids 1 - Exam GENERAL: The patient is lying in bed and not in acute distress. NEUROLOGICAL: Higher mental function: The patient is drowsy but awakeable to voice. Oriented to self and correctly stated the year. He stated he was in the hospital but could not tell me name. Patient is following some simple commands. Language is limited but no apparent aphasia or neglect. Cranial nerves: The pupils are round, equal and reactive to light. Visual bundy are full to confrontation throughout. Mild left lower facial droop. Mild to moderate dyarthria (per nurse old). Rest is limited because of his condition. Motor: The strength is had to use his right hand to support his left upper extremity above gravity. Otherwise lifting all extremities above gravity (besides left upper extremity it seems no focality but hard to assess because of cooperation). Decrease tone over the left upper. Normal bulk. Cerebellum: Unable to assess because of cooperation. Sensation: Unable to assess. Reflexes (right/left):Unable to assess. Some other workup in our facility during this hospital visit consisted of: Patient is afebrile AST and ALT is within normal limits Ammonia <9 Hemoglobin A1c is 5.9. Calcium is 8.6 initial serum glucose in our facility is 100. Lipid panel is triglycerides 62, cholesterol 128, LDLs of 56 HDL is 58 Urine analysis is negative for urinary tract infection Coronavirus is not detected. CT of the head is reported as no acute intracranial process. Nonspecific white matter changes, likely secondary to chronic small vessel ischemic disease. I personally reviewed the CT of the head and there is no acute or subacute ischemia. There is no and parenchymal hemorrhage at. The patient does have old skull defect from old surgery likely from the his history of subdural. CT angiography is reported as no evidence of dissection of the cervical internal carotid arteries or vertebral arteries or any evidence of significant stenosis at the carotid bifurcation. No evidence of high-grade stenosis or intracranial aneurysm. Airspace opacities are severely visualize correlate for pneumonia. Carotid duplex is reported as less than 50% stenosis of bilateral carotid bifurcation 2-D echo was reported as technically difficult study for agitation. Normal left ventricle as I mentioned solid function. Severely sclerotic aortic valve with mild aortic regurgitation. The aortic valve poorly visualized. Mitral annular calcification. - Labs CBC & Chem 7: 11/27/21 09:20 11/27/21 09:20 Labs: Abnormal Lab Results - Last 24 Hours (Table) 11/26/21 11/27/21 11/27/21 Range/Units 10:05 09:20 09:20 RBC 3.85 L (4.30-5.90) m/uL Hgb 11.8 L (13.0-17.5) gm/dL Hct 37.4 L (39.0-53.0) % Neutrophils # 8.6 H (1.3-7.7) k/uL Lymphocytes # 0.8 L (1.0-4.8) k/uL Sodium 134 L (137-145) mmol/L Creatinine 0.55 L (0.66-1.25) mg/dL Calcium 8.2 L (8.4-10.2) mg/dL Procalcitonin 0.55 H (0.02-0.09) ng/mL Microbiology - Last 24 Hours (Table) 11/26/21 10:05 Blood Culture - Preliminary Blood No Growth after 24 hours 11/26/21 10:05 Blood Culture - Preliminary Blood No Growth after 24 hours 11/25/21 13:38 Blood Culture Gram Stain - Final Blood Blood Culture - Final Coagulase Negative Staph 11/25/21 13:38 Blood Culture - Preliminary Blood No Growth after 24 hours Assessment and Plan Assessment: Encephalopathy of unknown etiology but seem due to underlying infection such as pneumonia seen on x-ray. Daughter feels he is more confused than baseline but it seems he is drowsy but does not seem confused on my examination. Acute left-sided weakness (on examination he had left facial droop and left upper extremity weakness and per daughter new). Unsure onset of his symptoms. Rule out stroke Possible pneumonia on CT History of old stroke History of subdural hemorrhage and was on blood thinners in the past History of dementia Plan: He is currently on aspirin 81 mg and Lipitor 20 mg which is sufficient for secondary stroke prophylaxis. I will not start the patient on dual antiplatelets especially with a history of subdural. We'll repeat a CT of the head today since MRI cannot be done this weekend. Repeat CT head is reported as no acute process. No change from prior. Nonspecific white matter change likely secondary due to chronic small vessel ischemia. I agree with the report. Recommend MRI of the brain to rule out stroke but per the patient's daughter the patient has a bladder stimulator but is not active both showed try to attempt to get the information to see if it's compatible for MRI. I ordered a routine EEG since the daughter feels he is more confused baseline to rule out seizure especially that he is on Keppra. I presume that he was on Keppra because of the subdural as a prophylaxis. Vitamin B12, folate and SH does not need to be repeated since it was done about a month ago. Patient is on vitamin B12 supplement at home. Continue neuro checks PT OT GREEN CHAIN WORKER are consulted We'll defer the rest of the medical management to primary team For DVT prophylaxis he is on subcu heparin. Plan discussed with the patient's daughter was at bedside. Dr. Thompson will start neurology service tomorrow jakub Jackson M.D. Neuro-hospitalist Time with Patient: Less than 30
[2021-11-27] MEDS: ATORVASTATIN 20 MG TAB PO SCH (21:49)
[2021-11-27] MEDS: risperiDONE 1 MG TAB PO SCH (21:49)
[2021-11-28] MEDS: SODIUM CHLORIDE 0.9% 1,000 ML IV SCH ×2 (00:52→20:59)
[2021-11-28] MEDS: PIPERACILLIN-TAZOBACTAM 3.375 GM in SODIUM CHLORIDE 0.9% 100 ML IVPB SCH ×4 (00:52→23:34)
[2021-11-28] MEDS: hydrALAZINE HCL 20 MG/ML 1 ML VIAL IVP PRN ×2 (01:02→21:00)
[2021-11-28] MEDS: levETIRAcetam 500 MG TAB PO SCH ×2 (09:08→21:00)
[2021-11-28] MEDS: ASPIRIN 81 MG PO SCH (09:08)
[2021-11-28] MEDS: DONEPEZIL 10 MG TAB PO SCH (09:08)
[2021-11-28] MEDS: SERTRALINE 25 MG TAB PO SCH (09:08)
[2021-11-28] MEDS: HEPARIN SODIUM,PORCINE/PF 5,000 UNIT/0.5 ML SYRINGE SQ SCH ×2 (09:08→21:00)
[2021-11-28] MEDS: FAMOTIDINE 20 MG TAB PO SCH (09:08)
[2021-11-28 12:47] LABS: Glucose,Whole Blood 99 mg/dL (70-110)
[2021-11-28 13:32] LABS: Basophils % (A) 0 %; Eosinophils # (A) 0.2 k/uL (0-0.7); Eosinophils % (A) 3 %; HCT 37.8 % (39.0-53.0); HGB 12.2 gm/dL (13.0-17.5); Lymphocytes # (A) 1.1 k/uL (1.0-4.8); Lymphocytes % (A) 14 %; MCH 31.2 pg (25.0-35.0); MCHC 32.2 g/dL (31.0-37.0); MCV 96.8 fL (80.0-100.0); Mean Platelet Volume 8.2; Monocytes % (A) 12 %; Neutrophils # (A) 5.3 k/uL (1.3-7.7); Neutrophils % (A) 67 %; Platelet Count 301 k/uL (150-450); WBC 7.8 k/uL (3.8-10.6)
[2021-11-28 13:39] LABS: VBG PH 7.44 (7.31-7.41)
[2021-11-28] MEDS: VANCOMYCIN 1,250 MG in SODIUM CHLORIDE 0.9% 250 ML IVPB SCH ×2 (13:42→21:00)
--- NOTE | 2021-11-28 13:45 | CT ---
EXAMINATION TYPE: CT brain wo con DATE OF EXAM: 11/28/2021 COMPARISON: 11/27/2021 HISTORY: Unresponsive CT DLP: 1084.4 mGycm Automated exposure control for dose reduction was used. FINDINGS: Intracranial atherosclerotic changes noted. Orbits symmetric. Changes of chronic sinusitis noted. Mod erate generalized degenerative change. Low-attenuation white matter is nonspecific but most typical r emote white matter ischemia. Hyperdensity along the epidermis on the right is nonspecific. Previous c raniotomy defects are noted. Changes of chronic sinusitis are noted and there is hyperostosis of the maxillary sinuses bilaterally greater on the right. 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 NO AC VÍCTOR HEMORRHAGE OR MASS EFFECT.
[2021-11-28 13:46] LABS: ALT 11 U/L (4-49); AST 14 U/L (17-59); African American GFR (CKD) >90 (>60 ml/min/1.73 sqM); Albumin 2.9 g/dL (3.5-5.0); Alkaline Phosphatase 81 U/L (38-126); Anion Gap 7 mmol/L; Blood Urea Nitrogen 11 mg/dL (9-20); Calcium 8.1 mg/dL (8.4-10.2); Carbon Dioxide 21 mmol/L (22-30); Chloride 107 mmol/L (98-107); Glucose 98 mg/dL (74-99); Non-African American GFR(CKD) 90 (>60 ml/min/1.73 sqM); Potassium 3.9 mmol/L (3.5-5.1); Sodium 135 mmol/L (137-145); Total Bilirubin 0.7 mg/dL (0.2-1.3); Total Protein 5.5 g/dL (6.3-8.2)
--- NOTE | 2021-11-28 18:16 | P.PN ---
Subjective Progress Note Date: 11/28/21 Patient was initially seen by Dr. Korey Jackson. Please refer to his note for details. Patient is an 86 years old male, with history of subdural hematoma, who presents for acute left-sided weakness. As per EMS flow sheet it was reported that about 40 minutes prior to this arrival, patient became altered and weak on the left side. Patient's blood sugar was normal at that time. Patient has history of "b rain bleed" and fell the day prior. When EMS arrived, patient was alert and oriented 3 and a stroke scale showed facial drooping on the right side but no other deficits. Repeat CT head was negative. MRI was recommended but patient has a stimulator and currently trying to get information about the stimulator. Patient is currently on aspirin and Lipitor. Patient is currently on Keppra 500 mg twice a day, that he has been taking prior to arrival to the hospital. When I came to see the patient, he was layng diagonally, with legs dangling on the side. Patient is confused, oriented times 1-2. Per nurse report, patient had an episode of unresponsiveness today at around 11-12 PM. It lasted for an hour. He started to wake up when he was coming back from CT head. No seizure like activity have been reported. Objective - Vital Signs Vital signs: Vital Signs Temp 98.0 F 11/28/21 12:00 Pulse 54 L 11/28/21 12:00 Resp 18 11/28/21 14:00 BP 166/76 11/28/21 12:00 Pulse Ox 99 11/28/21 12:00 FiO2 Intake & Output 11/27/21 11/28/21 11/28/21 18:59 06:59 18:59 Output Total 100 Balance -100 Output: Urine 100 Other: Voiding Method Urinal Urinal Urinal # Voids 1 1 # Bowel Movements 1 - Exam Patient is alert and awake, but confused. He is laying diagonally in the bed, with legs dangling down on the side. Patient knows his name. Speech and language functions appears normal. NEUROLOGICAL: Higher mental function: The patient is alert and awake. Oriented to self and correctly stated the year. Patient is following some simple commands. Language is limited but no apparent aphasia.. Cranial nerves: The pupils are round, equal and reactive to light. Visual bundy are full to confrontation throughout. Mild left lower facial droop. Mild to moderate dyarthria (per nurse old). Rest is limited because of his condition. Motor: The strength is normal in the arms distally and proximally. Patient moves and wiggles his feet and legs very normally. Normal bulk. Cerebellum: Unable to assess because of cooperation. Sensation: Unable to assess. - Labs CBC & Chem 7: 11/28/21 13:10 11/29/21 07:38 Labs: Abnormal Lab Results - Last 24 Hours (Table) 11/28/21 11/28/21 11/28/21 Range/Units 13:10 13:10 13:10 RBC 3.90 L (4.30-5.90) m/uL Hgb 12.2 L (13.0-17.5) gm/dL Hct 37.8 L (39.0-53.0) % VBG pH 7.44 H (7.31-7.41) VBG pCO2 34 L (37-51) mmHg VBG HCO3 23 L (24-28) mmol/L Sodium 135 L (137-145) mmol/L Carbon Dioxide 21 L (22-30) mmol/L Creatinine 0.61 L (0.66-1.25) mg/dL Calcium 8.1 L (8.4-10.2) mg/dL AST 14 L (17-59) U/L Total Protein 5.5 L (6.3-8.2) g/dL Albumin 2.9 L (3.5-5.0) g/dL Microbiology - Last 24 Hours (Table) 11/25/21 13:38 Blood Culture - Preliminary Blood No Growth after 72 hours 11/26/21 10:05 Blood Culture - Preliminary Blood No Growth after 48 hours 11/26/21 10:05 Blood Culture - Preliminary Blood No Growth after 48 hours Assessment and Plan Assessment: Episodes of unresponsiveness, rule out complex partial seizures. Rule out stroke/TIA. Acute left-sided weakness (on examination he had left facial droop and left upper extremity weakness and per daughter new). Unsure onset of his symptoms. Rule out stroke Possible pneumonia on CT History of old stroke History of subdural hemorrhage and was on blood thinners in the past, with history of craniotomy for evacuation of subdural hematoma History of dementia Plan: He is currently on aspirin 81 mg and Lipitor 20 mg which is sufficient for secondary stroke prophylaxis. No indication for dual antiplatelets especially with a history of subdural. Repeat CT head is reported as no acute process. No change from prior. Nonspecific white matter change likely secondary due to chronic small vessel is chemia. I agree with the report. Carotid Doppler 11/26/2021 revealed less than 50% stenosis of bilateral ICA. Antegrade flow in both vertebral arteries. 2-D echo 11/26/2021 revealed normal left ventricular dimension and systolic function with EF 50-55%. Severely sclerotic aortic valve with mild aortic regurgitation. The aortic valve is poorly visualized. Mitral annular calcification. EEG was performed today, which is probably an abnormal sleep EEG due to background slowing of mild to moderate degree, consistent with encephalopathy. Well-formed awake pattern not seen in the entire study. Clinical correlation is recommended. No obvious epileptiform activity was seen. With the current episodes of unresponsiveness, seizures are suspected. We will increase dose of Keppra to 750 mg twice a day. Vitamin B12 361, folate 15.7 and TSH 1.88 from 10/30/2021. Patient is on vitamin B12 monthly injection at home. We'll defer the rest of the medical management to primary team For DVT prophylaxis he is on subcu heparin.
--- NOTE | 2021-11-28 20:03 | P.PN ---
Subjective Progress Note Date: 11/28/21 Hospital course: Patient is a very pleasant 86-year-old male with a past medical history of dementia with baseline alert and oriented to self only, CVA, prior subarachnoid hemorrhage, hypertension, hyperlipidemia,.patient presented to the emergency department from [facility] with a chief complaint of worsening altered mental status and unstable gait.he was admitted under our services with consultation to neurology. Patient undergoing workup for CVA. Physical exam: Vital signs reviewed and stable. General: Nontoxic, no distress and appears stated age. Derm: Skin warm and dry, normal coloration for ethnicity. Head: Atraumatic, normocephalic and symmetric. Eyes: EOMs intact, no lid lag, and anicteric sclera Mouth: no lip lesions, mucus membranes moist Cardiovascular: regular rate and rhythm with normal S1S2, systolic murmur, positive posterior tibial pulses bilaterally, and cap refill < 2 seconds. Lungs: Respirations even, regular, and unlabored on room air. Lungs CTA bilaterally, no rhonchi, no rales, no wheezing, and no accessory muscle usage. Abdominal: soft, nontender to palpation, no guarding, no appreciable organomegaly Ext: ROM intact. No gross muscle atrophy, no edema, no contractures Neuro: alert to self only, only following simple commands. will withdraw from pain. Psych: Alert and oriented to self only. Assessment and Plan of Care: Worsening alteration in mental status with episodes of unresponsiveness, rule out seizures versus TIA versus stroke Left sided weakness Gram-negative bacteremia Pneumonia Leukocytosis dementia History of a subarachnoid hemorrhage Hypertension -continue daily medication regimen withAspirin, atorvastatin, and clonidine -Telemetry monitoring. -neurology following -Echocardiogram -monitor Pulse-oximetryand provide supplemental O2 as needed. -Duonebs as needed for SOB and/or wheezing -Incentive Spirometry -Antibiotics: Zosyn and vancomycin -Sputum culture -Restart Clonidine for hypertension. -Aricept for history dementia. -Pepcid for GERD. -Keppra for seizure prophylaxis. -Risperdal for hallucinations. -Zoloft for depression. CODE STATUS: DO NOT RESUSCITATE/DO NOT INTUBATE DVT prophylaxis: heparin Discussed with: patient's daughter at bedside and RN Anticipated discharge date: clinical course to determine Anticipated discharge place[facility] A total of 40 minutes was spent on the care of this complex patient more than 50% of the time was spent in counseling and care coordination. Objective - Vital Signs Vital signs: Vital Signs Temp 98.3 F 11/28/21 08:00 Pulse 64 11/28/21 08:00 Resp 18 11/28/21 08:00 BP 141/69 11/28/21 08:00 Pulse Ox 94 L 11/28/21 08:00 FiO2 Intake & Output 11/27/21 11/28/21 11/28/21 18:59 06:59 18:59 Output Total 100 Balance -100 Output: Urine 100 Other: Voiding Method Urinal Urinal # Voids 1 1 # Bowel Movements 1 - Labs CBC & Chem 7: 11/28/21 13:10 11/28/21 13:10 Labs: Abnormal Lab Results - Last 24 Hours (Table) 11/27/21 11/27/21 Range/Units 09:20 09:20 RBC 3.85 L (4.30-5.90) m/uL Hgb 11.8 L (13.0-17.5) gm/dL Hct 37.4 L (39.0-53.0) % Neutrophils # 8.6 H (1.3-7.7) k/uL Lymphocytes # 0.8 L (1.0-4.8) k/uL Sodium 134 L (137-145) mmol/L Creatinine 0.55 L (0.66-1.25) mg/dL Calcium 8.2 L (8.4-10.2) mg/dL Microbiology - Last 24 Hours (Table) 11/25/21 13:38 Blood Culture - Preliminary Blood No Growth after 48 hours 11/26/21 10:05 Blood Culture - Preliminary Blood No Growth after 24 hours 11/26/21 10:05 Blood Culture - Preliminary Blood No Growth after 24 hours 11/25/21 13:38 Blood Culture Gram Stain - Final Blood Blood Culture - Final Coagulase Negative Staph
[2021-11-28] MEDS: risperiDONE 1 MG TAB PO SCH (21:00)
[2021-11-28] MEDS: ATORVASTATIN 20 MG TAB PO SCH (21:00)
--- NOTE | 2021-11-28 22:16 | EEG ---
ELECTROENCEPHALOGRAM REPORT PREAMBLE: This is an 86-year-old male, who came to the hospital because of left-sided weakness. The patient has a history of recurrent falls, subdural hemorrhage, past jerome hole, dementia, and hypertension. The patient currently takes apresoline, aspirin, Lipitor, Aricept, Keppra, Risperdal, and Zoloft. EEG FINDINGS: This is a 21-channel digital EEG recorded with video component, utilizing 10/20 international system with referential and bipolar montages. The patient was asleep during most of the study with presence of diffuse moderate-voltage mixed theta with some delta activity in bihemispheric region. Frequent sleep spindles were seen. Well- formed, awake pattern was not seen in the entire study. Photic driving response was not seen. No definitive focal or generalized epileptiform activity was seen. IMPRESSION: This is probably an abnormal sleep EEG, due to background slowing of mild to moderate degree, consistent with encephalopathy. Well-formed, awake pattern not seen in the entire study. Clinical correlation is recommended. No obvious epileptiform activity was seen. MMODL / IJN: [id number] / MTDD
[2021-11-29] MEDS ORDERED: VANCOMYCIN TROUGH DUE 1 EACH MISC MISCELLANE ONE (07:00)
[2021-11-29 08:41] LABS: African American GFR (CKD) >90 (>60 ml/min/1.73 sqM); Anion Gap 7 mmol/L; Blood Urea Nitrogen 11 mg/dL (9-20); Calcium 8.2 mg/dL (8.4-10.2); Carbon Dioxide 20 mmol/L (22-30); Chloride 110 mmol/L (98-107); Glucose 98 mg/dL (74-99); Non-African American GFR(CKD) 84 (>60 ml/min/1.73 sqM); Sodium 137 mmol/L (137-145)
[2021-11-29] MEDS: levETIRAcetam 500 MG TAB PO SCH ×2 (09:15→21:30)
[2021-11-29] MEDS: HEPARIN SODIUM,PORCINE/PF 5,000 UNIT/0.5 ML SYRINGE SQ SCH ×2 (09:15→21:30)
[2021-11-29] MEDS: ASPIRIN 81 MG PO SCH (09:15)
[2021-11-29] MEDS: FAMOTIDINE 20 MG TAB PO SCH (09:15)
[2021-11-29] MEDS: DONEPEZIL 10 MG TAB PO SCH (09:15)
[2021-11-29] MEDS: SERTRALINE 25 MG TAB PO SCH (09:16)
[2021-11-29] MEDS: VANCOMYCIN 1,250 MG in SODIUM CHLORIDE 0.9% 250 ML IVPB SCH (09:16)
[2021-11-29] MEDS: PIPERACILLIN-TAZOBACTAM 3.375 GM in SODIUM CHLORIDE 0.9% 100 ML IVPB SCH ×2 (11:25→17:07)
[2021-11-29] MEDS: SODIUM CHLORIDE 0.9% 1,000 ML IV SCH ×2 (15:12→20:17)
--- NOTE | 2021-11-29 16:52 | P.PN ---
Subjective Progress Note Date: 11/29/21 Hospital course: Patient is a very pleasant 86-year-old male with a past medical history of dementia with baseline alert and oriented to self only, CVA, prior subarachnoid hemorrhage, hypertension, hyperlipidemia,.patient presented to the emergency department from [facility] with a chief complaint of worsening altered mental status and unstable gait.he was admitted under our services with consultation to neurology. Patient undergoing workup for CVA. CT had completed showing no acute intercranial process. Chest x-ray completed revealing mild cardiomegaly with mild interstitial edema. EKG showing sinus rhythm with a first-degree AV block with CA interval of 342 ms. Echocardiogram revealing a preserved EF of 50-55% with severely sclerotic aortic valve with mild aortic regurgitation. Carotid Dopplers completed revealing less than 50% stenosis of the bilateral carotid bifurcations. EEG was completed. On 11/29/19 2 in the afternoon and patient was found by his daughter and RN to be unresponsive. Upon going to bedside patient was unresponsive to verbal, tactile, or painful stimuli. Blood glucose was obtained resulting in 99. VBG revealing mild respiratory acidosis, lactate was 0.7, and labs otherwise showing no significant abnormalities. Patient went for repeat CT revealing degenerative and nonspecific white matter changes most typical of remote white matter ischemia and negative for acute intercranial process. Neurology notified ruling out complex partial seizures. Physical exam: Patient seen and fully evaluated at bedside this morning. Patient's mentation significantly improved, upon assessment this morning patient more awake and alert. Patient alert to person, place, and situation confused to time. Keppra was increased by neurology for suspected seizures after recurrent episodes of unresponsiveness. Patient denies having any complaints. Vital signs reviewed and stable. General: Nontoxic, no distress and appears stated age. Derm: Skin warm and dry, normal coloration for ethnicity. Head: Atraumatic, normocephalic and symmetric. Eyes: EOMs intact, no lid lag, and anicteric sclera Mouth: no lip lesions, mucus membranes moist Cardiovascular: regular rate and rhythm with normal S1S2, systolic murmur, positive posterior tibial pulses bilaterally, and cap refill < 2 seconds. Lungs: Respirations even, regular, and unlabored on room air. Lungs CTA bilaterally, no rhonchi, no rales, no wheezing, and no accessory muscle usage. Abdominal: soft, nontender to palpation, no guarding, no appreciable organomegaly Ext: ROM intact. No gross muscle atrophy, no edema, no contractures Neuro: alert to self only, only following simple commands. will withdraw from pain. Psych: Alert and oriented to self only. Assessment and Plan of Care: Worsening alteration in mental status with episodes of unresponsiveness, rule out seizures versus TIA versus stroke Left sided weakness Dementia History of a subarachnoid hemorrhage -Neurology following, increased Keppra -Continue neuro checks, fall precautions -Continue daily medication regimen with aspirin, atorvastatin, and clonidine -Telemetry monitoring. -Echocardiogram revealing a preserved EF of 50-55% with severely sclerotic aortic valve with mild aortic regurgitation. -Carotid Dopplers completed revealing less than 50% stenosis of the bilateral carotid bifurcations. -Aricept for history dementia. -Risperdal for hallucinations. -Zoloft for depression. Pneumonia Gram-negative bacteremia, likely contaminant repeat blood cultures negative -Monitor Pulse-oximetryand provide supplemental O2 as needed. -Incentive Spirometry -Antibiotics: Completed 5 day course of Zosyn and vancomycin on 11/29/21 Hypertension -Monitor vital signs and Continue daily medication regimen with Clonidine GERD -Continue Pepcid for GI prophylaxis CODE STATUS: DO NOT RESUSCITATE/DO NOT INTUBATE DVT prophylaxis: heparin Discussed with: Patient and RN Anticipated discharge date: Keppra increased, monitor 24 hours and likely discharge back to assisted facility. Anticipated discharge place: return to assisted facility A total of 40 minutes was spent on the care of this complex patient more than 50% of the time was spent in counseling and care coordination. Objective - Vital Signs Vital signs: Vital Signs Temp 98 F 11/28/21 23:35 Pulse 82 11/29/21 04:00 Resp 18 11/29/21 04:00 BP 154/94 11/29/21 04:00 Pulse Ox 93 L 11/29/21 04:00 FiO2 Intake & Output 11/28/21 11/29/21 11/29/21 18:59 06:59 18:59 Intake Total 240 Output Total 875 Balance 240 -875 Intake: Oral 240 Output: Urine 875 Other: Voiding Method Urinal Urinal # Voids 1 1 - Labs CBC & Chem 7: 11/28/21 13:10 11/29/21 07:38 Labs: Abnormal Lab Results - Last 24 Hours (Table) 11/28/21 11/28/21 11/28/21 Range/Units 13:10 13:10 13:10 RBC 3.90 L (4.30-5.90) m/uL Hgb 12.2 L (13.0-17.5) gm/dL Hct 37.8 L (39.0-53.0) % VBG pH 7.44 H (7.31-7.41) VBG pCO2 34 L (37-51) mmHg VBG HCO3 23 L (24-28) mmol/L Sodium 135 L (137-145) mmol/L Carbon Dioxide 21 L (22-30) mmol/L Creatinine 0.61 L (0.66-1.25) mg/dL Calcium 8.1 L (8.4-10.2) mg/dL AST 14 L (17-59) U/L Total Protein 5.5 L (6.3-8.2) g/dL Albumin 2.9 L (3.5-5.0) g/dL Microbiology - Last 24 Hours (Table) 11/25/21 13:38 Blood Culture - Preliminary Blood No Growth after 72 hours 11/26/21 10:05 Blood Culture - Preliminary Blood No Growth after 48 hours 11/26/21 10:05 Blood Culture - Preliminary Blood No Growth after 48 hours
[2021-11-29] MEDS: risperiDONE 1 MG TAB PO SCH (21:30)
[2021-11-29] MEDS: ATORVASTATIN 20 MG TAB PO SCH (21:31)
[2021-11-30] MEDS: SODIUM CHLORIDE 0.9% 1,000 ML IV SCH (06:41)
[2021-11-30] MEDS: ASPIRIN 81 MG PO SCH (08:47)
[2021-11-30] MEDS: FAMOTIDINE 20 MG TAB PO SCH (08:47)
[2021-11-30] MEDS: DONEPEZIL 10 MG TAB PO SCH (08:47)
[2021-11-30] MEDS: SERTRALINE 25 MG TAB PO SCH (08:47)
[2021-11-30] MEDS: HEPARIN SODIUM,PORCINE/PF 5,000 UNIT/0.5 ML SYRINGE SQ SCH (08:47)
[2021-11-30] MEDS: levETIRAcetam 500 MG TAB PO SCH (08:47)
--- NOTE | 2021-11-30 08:59 | P.PN ---
Subjective Progress Note Date: 11/29/21 11/29/2021: Patient was seen for a follow-up. Patient states "I'm okay". Patient's daughter was present today. She admits that patient does have history of dementia, progressively getting worse. She says that his usual routine is that he sleeps or eats, does not want to talk does not want to do anything. He does not want to see his neurologist. The last time he was seen was in January 2021. Patient's daughter states that he thinks that he is 89 years old. He does know his kids and grandkids names. Patient's daughter states that he has been living in [facility] since March 2021. He has history of bladder stimulator placement. She also mentions that he falls a lot. He has been falling frequently since 2018. He was diagnosed with bilateral subdural hematoma, requiring craniotomy in 2018. Since then she states, he has been having "weird episodes", in which she would be marching, holding a wheelbarrow. Once somebody touches him, he comes back to reality. Patient's daughter admits that yesterday with a spell, he could not be aroused, despite sternal rubs. This is how he presented to the hospital as well. No one has witnessed any seizure however. 11/28/2021: Patient was initially seen by Dr. Korey Jackson. Please refer to his note for details. Patient is an 86 years old male, with history of subdural hematoma, who presents for acute left-sided weakness. As per EMS flow sheet it was reported that about 40 minutes prior to this arrival, patient became altered and weak on the left side. Patient's blood sugar was normal at that time. Patient has history of "brain bleed" and fell the day prior. When EMS arrived, patient was alert and oriented 3 and a stroke scale showed facial drooping on the right side but no other deficits. Repeat CT head was negative. MRI was recommended but patient has a stimulator and currently trying to get information about the stimulator. Patient is currently on aspirin and Lipitor. Patient is currently on Keppra 500 mg twice a day, that he has been taking prior to arrival to the hospital. When I came to see the patient, he was layng diagonally, with legs dangling on the side. Patient is confused, oriented times 1-2. Per nurse report, patient had an episode of unresponsiveness today at around 11-12 PM. It lasted for an hour. He started to wake up when he was coming back from CT head. No seizure like activity have been reported. Objective - Vital Signs Vital signs: Vital Signs Temp 98 F 11/28/21 23:35 Pulse 82 11/29/21 04:00 Resp 18 11/29/21 04:00 BP 154/94 11/29/21 04:00 Pulse Ox 93 L 11/29/21 04:00 FiO2 Intake & Output 11/28/21 11/29/21 11/29/21 18:59 06:59 18:59 Intake Total 240 180 Output Total 875 Balance 240 -875 180 Intake: Oral 240 180 Output: Urine 875 Other: Voiding Method Urinal Urinal # Voids 1 1 - Exam Patient was slightly drowsy, snoozing, but did wake up to calling his name. He is knows his name and states he is 80 years old. He knows that in the wintertim e he lives in [facility] and in summertime he lives in [facility]. He knows the neck name of his daughter Vimal and her full name. Speech and language functions appears normal. Cranial nerves: The pupils are round, equal and reactive to light. Visual field s are full to confrontation throughout. No facial weakness. Motor: He has mild left pronator drift. The strength is normal in the arms distally and proximally. Patient moves and wiggles his feet and legs very normally. Normal bulk. Cerebellum: No obvious ataxia for [id number] testing.. Sensation: Equal - Labs CBC & Chem 7: 11/28/21 13:10 11/29/21 07:38 Labs: Abnormal Lab Results - Last 24 Hours (Table) 11/28/21 11/28/21 11/28/21 Range/Units 13:10 13:10 13:10 RBC 3.90 L (4.30-5.90) m/uL Hgb 12.2 L (13.0-17.5) gm/dL Hct 37.8 L (39.0-53.0) % VBG pH 7.44 H (7.31-7.41) VBG pCO2 34 L (37-51) mmHg VBG HCO3 23 L (24-28) mmol/L Sodium 135 L (137-145) mmol/L Chloride (98-107) mmol/L Carbon Dioxide 21 L (22-30) mmol/L Creatinine 0.61 L (0.66-1.25) mg/dL Calcium 8.1 L (8.4-10.2) mg/dL AST 14 L (17-59) U/L Total Protein 5.5 L (6.3-8.2) g/dL Albumin 2.9 L (3.5-5.0) g/dL 11/29/21 Range/Units 07:38 RBC (4.30-5.90) m/uL Hgb (13.0-17.5) gm/dL Hct (39.0-53.0) % VBG pH (7.31-7.41) VBG pCO2 (37-51) mmHg VBG HCO3 (24-28) mmol/L Sodium (137-145) mmol/L Chloride 110 H (98-107) mmol/L Carbon Dioxide 20 L (22-30) mmol/L Creatinine (0.66-1.25) mg/dL Calcium 8.2 L (8.4-10.2) mg/dL AST (17-59) U/L Total Protein (6.3-8.2) g/dL Albumin (3.5-5.0) g/dL Microbiology - Last 24 Hours (Table) 11/25/21 13:38 Blood Culture - Preliminary Blood No Growth after 72 hours 11/26/21 10:05 Blood Culture - Preliminary Blood No Growth after 48 hours 11/26/21 10:05 Blood Culture - Preliminary Blood No Growth after 48 hours Assessment and Plan Assessment: Episodes of unresponsiveness 2, possible complex partial seizures. Rule out stroke/TIA (also in the differential). Acute left-sided weakness (on examination he had left facial droop and left upper extremity weakness and per daughter new). Unsure onset of his symptoms. Rule out stroke History of frequent falls. History of old stroke History of subdural hemorrhage and was on blood thinners in the past, with history of craniotomy for evacuation of subdural hematoma in 2019. History of dementia Plan: Patient is neurologically back to baseline, as per his daughter's statement. He does have dementia. Patient is on Aricept 10 mg daily. Continue aspirin 81 mg and Lipitor 20 mg which is sufficient for secondary stroke prophylaxis. Hold off on dual antiplatelets especially with a history of subdural hematoma and recurrent falls. Repeat CT head is reported as no acute process. No change from prior. Nonspecific white matter change likely secondary due to chronic small vessel ischemia. I agree with the report. Carotid Doppler 11/26/2021 revealed less than 50% stenosis of bilateral ICA. Antegrade flow in both vertebral arteries. 2-D echo 11/26/2021 revealed normal left ventricular dimension and systolic function with EF 50-55%. Severely sclerotic aortic valve with mild aortic regurgitation. The aortic valve is poorly visualized. Mitral annular calcification. EEG 11/28/2021 is probably an abnormal sleep EEG due to background slowing of mild to moderate degree, consistent with encephalopathy. Well-formed awake pattern not seen in the entire study. Clinical correlation is recommended. No obvious epileptiform activity was seen. With the current episodes of unresponsiveness, seizures are suspected. We will increase dose of Keppra to 750 mg twice a day. Discussed with patient's daughter, agreed with increasing the dose. Vitamin B12 361, folate 15.7 and TSH 1.88 from 10/30/2021. Patient is on v itamin B12 monthly injection at home. We'll defer the rest of the medical management to primary team For DVT prophylaxis he is on subcu heparin. Neurologically clear for discharge. May follow up with neurologist as an outpatient.
[2021-11-30 09:35] VITALS: TEMP 97.8
[2021-11-30 11:46] VITALS: BP 143/68; PULSE 79; RESP 16
--- NOTE | 2021-11-30 15:16 | P.PN ---
Subjective Progress Note Date: 11/30/21 11/30/2021: Patient was seen for a follow-up. Patient's daughter was also present. He continues to be sleepy. 11/29/2021: Patient was seen for a follow-up. Patient states "I'm okay". Patient's daughter was present today. She admits that patient does have history of dementia, progressively getting worse. She says that his usual routine is that he sleeps or eats, does not want to talk does not want to do anything. He does not want to see his neurologist. The last time he was seen was in January 2021. Patient's daughter states that he thinks that he is 89 years old. He does know his kids and grandkids names. Patient's daughter states that he has been living in [facility] since March 2021. He has history of bladder stimulator placement. She also mentions that he falls a lot. He has been falling frequently since 2018. He was diagnosed with bilateral subdural hematoma, requiring craniotomy in 2018. Since then she states, he has been having "weird episodes", in which she would be marching, holding a wheelbarrow. Once somebody touches him, he comes back to reality. Patient's daughter admits that yesterday with a spell, he could not be aroused, despite sternal rubs. This is how he presented to the hospital as well. No one has witnessed any seizure however. 11/28/2021: Patient was initially seen by Dr. Korey Jackson. Please refer to his note for details. Patient is an 86 years old male, with history of subdural hematoma, who presents for acute left-sided weakness. As per EMS flow sheet it was reported that about 40 minutes prior to this arrival, patient became altered and weak on the left side. Patient's blood sugar was normal at that time. Patient has history of "b rain bleed" and fell the day prior. When EMS arrived, patient was alert and oriented 3 and a stroke scale showed facial drooping on the right side but no other deficits. Repeat CT head was negative. MRI was recommended but patient has a stimulator and currently trying to get information about the stimulator. Patient is currently on aspirin and Lipitor. Patient is currently on Keppra 500 mg twice a day, that he has been taking prior to arrival to the hospital. When I came to see the patient, he was layng diagonally, with legs dangling on the side. Patient is confused, oriented times 1-2. Per nurse report, patient had an episode of unresponsiveness today at around 11-12 PM. It lasted for an hour. He started to wake up when he was coming back from CT head. No seizure like activity have been reported. Objective - Vital Signs Vital signs: Vital Signs Temp 97.8 F 11/30/21 08:40 Pulse 79 11/30/21 13:17 Resp 16 11/30/21 11:45 BP 143/68 11/30/21 11:45 Pulse Ox 93 L 11/30/21 11:45 FiO2 Intake & Output 11/29/21 11/30/21 11/30/21 18:59 06:59 18:59 Intake Total 1790 700 Output Total 600 Balance 1790 100 Intake: Intake, IV Titration 800 700 Amount Piperacillin-Tazobactam 3 100 .375 gm In Sodium Chloride 0.9% 100 ml @ 25 mls/hr IVPB Q8HR JOSE Rx# :[id number] Sodium Chloride 0.9% 1, 450 450 000 ml @ 75 mls/hr IV . [id number] JOSE Rx#:[id number] Vancomycin 1,250 mg In 250 250 Sodium Chloride 0.9% 250 ml @ 125 mls/hr IVPB Q12H JOSE Rx#:[id number] Oral 990 Output: Urine 600 Other: Voiding Method Urinal Diaper Diaper Diaper Incontinent Incontinent Incontinent # Voids 1 1 1 # Bowel Movements 1 - Exam 11/30/2021: Patient laying comfortably in the bed. He is somnolent. Detail examination deferred. 11/29/2021: Patient was slightly drowsy, snoozing, but did wake up to calling his name. He is knows his name and states he is 80 years old. He knows that in the wintertime he lives in [facility] and in summertime he lives in [facility]. He knows the neck name of his daughter Vimal and her full name. Speech and language functions appears normal. Cranial nerves: The pupils are round, equal and reactive to light. Visual bundy are full to confrontation throughout. No facial weakness. Motor: He has mild left pronator drift. The strength is normal in the arms distally and proximally. Patient moves and wiggles his feet and legs very normally. Normal bulk. Cerebellum: No obvious ataxia for [id number] testing.. Sensation: Equal - Labs CBC & Chem 7: 11/28/21 13:10 11/29/21 07:38 Labs: Microbiology - Last 24 Hours (Table) 11/26/21 10:05 Blood Culture - Preliminary Blood No Growth after 96 hours 11/26/21 10:05 Blood Culture - Preliminary Blood No Growth after 96 hours 11/25/21 13:38 Blood Culture - Preliminary Blood No Growth after 96 hours Assessment and Plan Assessment: Episodes of unresponsiveness 2, possible complex partial seizures. Rule out stroke/TIA (also in the differential). Acute left-sided weakness (on examination he had left facial droop and left uppe r extremity weakness and per daughter new). Unsure onset of his symptoms. Rule out stroke/TIA. CT head showed no acute process. History of frequent falls. History of old stroke History of subdural hemorrhage and was on blood thinners in the past, with history of craniotomy for evacuation of subdural hematoma in 2019. History of dementia Plan: Patient is neurologically back to baseline, as per his daughter's statement. He does have dementia. Patient is on Aricept 10 mg daily. Continue aspirin 81 mg and Lipitor 20 mg for secondary stroke prophylaxis. Again discussed with patient's daughter about switching from aspirin to Plavix (due to recent questionable TIA with documentation of left facial droop and left arm weakness). She says that patient falls frequently. Once he goes to the longterm, he will fall. Plavix carries more bleeding risk. She understands of potential CVA, but because of his dementia, and frequent falls, she prefers keeping her on aspirin [address] head is reported as no acute process. No change from prior. Non specific white matter change likely secondary due to chronic small vessel ischemia. I agree with the report. Carotid Doppler 11/26/2021 revealed less than 50% stenosis of bilateral ICA. Antegrade flow in both vertebral arteries. 2-D echo 11/26/2021 revealed normal left ventricular dimension and systolic function with EF 50-55%. Severely sclerotic aortic valve with mild aortic regurgitation. The aortic valve is poorly visualized. Mitral annular calcification. EEG 11/28/2021 is probably an abnormal sleep EEG due to background slowing of mild to moderate degree, consistent with encephalopathy. Well-formed awake pattern not seen in the entire study. Clinical correlation is recommended. No obvious epileptiform activity was seen. With the current episodes of unresponsiveness, seizures are suspected. We will increase dose of Keppra to 750 mg twice a day. Discussed with patient's daughter, agreed with increasing the dose. Vitamin B12 361, folate 15.7 and TSH 1.88 from 10/30/2021. Patient is on vitamin B12 monthly injection at home. We'll defer the rest of the medical management to primary team For DVT prophylaxis he is on subcu heparin. Neurologically clear for discharge. May follow up with neurologist as an outpatient. Neurology will sign off. Discussed with primary physician.
--- NOTE | 2021-11-30 16:38 | P.DS ---
Providers Date of admission: 11/25/21 15:22 Expected date of discharge: 11/30/21 Attending physician: Odette Brock MD Consults: 11/25/21 15:21 Consult Physician Routine Consulting Provider: Korey Jackson Consult Reason/Comments: TIA Do you want consulting provider notified?: Already Contacted Primary care physician: [facility] Course: Patient is a very pleasant 86-year-old male with a past medical history of dementia with baseline alert and oriented to self only, CVA, prior subarachnoid hemorrhage, hypertension, hyperlipidemia,.patient presented to the emergency department from [facility] with a chief complaint of worsening altered mental status and unstable gait.he was admitted under our services with consultation to neurology. Patient undergoing workup for CVA. CT had completed showing no acute intercranial process. Chest x-ray completed revealing mild cardiomegaly with mild interstitial edema. EKG showing sinus rhythm with a first-degree AV block with NE interval of 342 ms. Echocardiogram revealing a preserved EF of 50-55% with severely sclerotic aortic valve with mild aortic regurgitation. Carotid Dopplers completed revealing less than 50% stenosis of the bilateral carotid bifurcations. EEG was completed. His blood cultures came back positive for coagulase-negative staph. This was initially thought to be contaminant. Repeat blood cultures were negative at 96 hours. Patient completed 5 day course of Zosyn and vancomycin. On 11/29/19 2 in the afternoon and patient was found by his daughter and RN to be unresponsive. Upon going to bedside patient was unresponsive to verbal, tactile, or painful stimuli. Blood glucose was obtained resulting in 99. VBG revealing mild respiratory acidosis, lactate was 0.7, and labs otherwise showing no significant abnormalities. Patient went for repeat CT revealing degenerative and nonspecific white matter changes most typical of remote white matter ischemia and negative for acute intercranial process. Neurology notified ruling out complex partial seizures. Neurology recommended increasing Keppra to 750 mg by mouth twice a day. Patient did not have any further episodes of altered mentation or unresponsiveness. Patient was seen and examined on 11/30/2021. Reported generally feeling well. Family at bedside dated he was back to baseline. The case was discussed with neurology who recommended switching aspirin to Plavix for concerns of TIA. However, after discussion with family, decision was made to keep the patient on aspirin due to his history of frequent falls. Neurology was agreeable to this plan. Patient was subsequently discharged to [facility]. General: [non toxic], [no distress], [appears at stated age] Derm: [warm], [dry] Head: [atraumatic], [normocephalic], [symmetric] Eyes: [EOMI], [no lid lag], [anicteric sclera] Mouth: [no lip lesion], [mucus membranes moist] Cardiovascular: [S1S2 reg], [systolic murmur] Lungs: [CTA bilateral], [no rhonchi, no rales] , [no accessory muscle use] Abdominal: [soft], [ nontender to palpation] Ext: [no gross muscle atrophy], [no edema], [no contractures] Neuro: [Unable to perform neurological exam due to mental status] Psych: [AO x 0-1] Discharge Diagnosis: Worsening alteration in mental status with episodes of unresponsiveness, rule out seizures versus TIA versus stroke Left sided weakness Dementia History of a subarachnoid hemorrhage Pneumonia Gram-negative bacteremia, likely contaminant repeat blood cultures negative Hypertension GERD His complex discharge took about 45 minutes to complete. Pertinent Studies: CT brain CT head and neck Chest x-ray Abdominal x-ray Echocardiogram Carotid Doppler CT brain EEG Patient Condition at Discharge: Fair Plan - Discharge Summary Discharge Rx Participant: No New Discharge Prescriptions: New Aspirin 81 mg PO DAILY #30 tab levETIRAcetam [Keppra] 750 mg PO BID@ #60 tab Continue Famotidine [Pepcid] 40 mg PO DAILY@0800 cloNIDine HCL 0.1 mg PO HS@1999 Sertraline [Zoloft] 25 mg PO DAILY@0800 Lidocaine 5% Oint [Xylocaine 5% Oint] 1 applic TOPICAL TID@0800,1399,1999 Donepezil 23mg 23 mg PO DAILY@0800 Atorvastatin [Lipitor] 20 mg PO HS@1999 Cyanocobalamin [Vitamin B-12 Injection] 2,000 mcg SQ Q30D risperiDONE [RisperDAL] 1 mg PO HS@1999 Discontinued levETIRAcetam [Keppra] 500 mg PO BID@799,1999 Discharge Medication List Famotidine [Pepcid] 40 mg PO DAILY@0800 01/16/18 [History] Donepezil 23mg 23 mg PO DAILY@0800 03/15/21 [History] cloNIDine HCL 0.1 mg PO HS@199903/15/21 [History] Atorvastatin [Lipitor] 20 mg PO HS@199904/21/21 [History] Cyanocobalamin [Vitamin B-12 Injection] 2,000 mcg SQ Q30D 05/17/21 [History] Sertraline [Zoloft] 25 mg PO DAILY@0800 10/28/21 [History] risperiDONE [RisperDAL] 1 mg PO HS@199911/03/21 [History] Lidocaine 5% Oint [Xylocaine 5% Oint] 1 applic TOPICAL TID@0800,1399,199911/25/21 [History] Aspirin 81 mg PO DAILY #30 tab 11/30/21 [Rx] levETIRAcetam [Keppra] 750 mg PO BID@799,1999 #60 tab 11/30/21 [Rx] Follow up Appointment(s)/Referral(s): Stephanie Russo MD [REFERRING] - 1 Week (Office to call patient's daughter with appointment date/time.) Arnoldo Coronel MD [Primary Care Provider] - 12/08/21 12:45 pm (Office to call patient's daughter if sooner appointment opens up.) Patient Instructions/Handouts: Transient Ischemic Attack (DC) Activity/Diet/Wound Care/Special Instructions: Diet: Cardiac Follow up with your PCP within 1-2 days of discharge. Follow up with Neurology within 1 week of discharge. Take all medications as advised. Come back to the ED for worsening one-sided weakness, slurred speech, confusion, unresponsiveness. Discharge Disposition: HOME SELF-CARE
[2021-12-01] MEDS ORDERED: CLOPIDOGREL 75 MG TAB PO SCH (09:00)
--- NOTE | 2021-12-02 07:08 | CDI ---
Documentation Clarification Form Date: 12/02/2021 06:52:00 AM From: Kiera Faulkner Admit Date: 11/25/2021 03:22:00 PM Patient Name: Mickey Ha Visit Number: [id number] Discharge Date: 11/30/2021 03:24:00 PM ATTENTION: The Clinical Documentation Specialists (CDI) and [facility] Coding Staff appreciate your assistance in clarifying documentation. Please respond to the clarification below the line at the bottom and electronically sign. The CDI & [facility] Coding staff will review the response and follow-up if needed. Please note: Queries are made part of the Legal Health Record. If you have any questions, please contact the author of this message via ITS. Dr. Odette Brock Per [facility] Documentation of "Worsening alteration in mental status with episodes of unresponsiveness, rule out seizures versus TIA versus stroke. Patient has left sided weakness, dysarthria, facial droop and NIH of 14-15. Additional clarification regarding the ischemic CVA is requested. History/risk factors: History SDH History of jerome holes in skull for hematoma, HTN Clinical Indicators CT: Nonspecific white matter change likely secondary due to chronic small vessel ischemia. MRI/MRA: Treatment: Fall precautions, aspirin 81 mg Please clarify if patient had Stroke/CVA or was it ruled out. Cause of Stroke/CVA: [ ] Ischemic stroke/CVA [ ] Stroke/CVA ruled out [ ] Stenosis/Occlusion [ ] Embolic [ ] Thrombolytic [ ] Hypertension [ ] Other (please specify) [ ] Unable to Determine Laterality: [ ] Left [ ] Right [ ] Bilateral [ ] Other (please specify) [ ] Unable to Determine Stroke/CVA ruled out Left MTDD
== END 2021-11-30 15:24 | disposition home or self-care (01) | DRG 194 ==
LOC: EC 13:13 → 3SCARD 15:22
PROVIDERS: ADMIT Family Medicine; ATTEND Family Medicine
DX: J18.9 Pneumonia, unspecified organism (principal); E87.2 Acidosis; S12.110A Anterior displaced Type II dens fracture, initial encounter for closed fracture; G93.40 Encephalopathy, unspecified; I67.82 Cerebral ischemia; R44.3 Hallucinations, unspecified; K21.9 Gastro-esophageal reflux disease without esophagitis; R29.714 NIHSS score 14; I44.0 Atrioventricular block, first degree; E78.5 Hyperlipidemia, unspecified; D64.9 Anemia, unspecified; F03.90 Unspecified dementia, unspecified severity, without behavioral disturbance, psychotic disturbance, mood disturbance, and anxiety; F32.A Depression, unspecified; I10 Essential (primary) hypertension; Z86.73 Personal history of transient ischemic attack (TIA), and cerebral infarction without residual deficits; R29.6 Repeated falls; Z66 Do not resuscitate; R56.9 Unspecified convulsions; R26.9 Unspecified abnormalities of gait and mobility; R29.810 Facial weakness; Z91.81 History of falling; W19.XXXA Unspecified fall, initial encounter; G93.89 Other specified disorders of brain; I35.8 Other nonrheumatic aortic valve disorders; R47.1 Dysarthria and anarthria; Z20.822 Contact with and (suspected) exposure to COVID-19; Z79.82 Long term (current) use of aspirin; Z79.899 Other long term (current) drug therapy; Z82.3 Family history of stroke; Z85.528 Personal history of other malignant neoplasm of kidney
CPT/HCPCS: 36415; 70450; 70496; 70498; 71045; 74018; 80048; 80053; 80061; 80202; 81001; 82140; 82803; 83036; 83605; 83735; 83880; 84145; 84484; 85025; 85610; 85730; 87040; 87635; 93005; 93306; 93880; 95816; 99291